=== PATIENT | male | born 1950 | race Caucasian/White ===

== ENCOUNTER 2023-05-30 12:06 | Inpatient (IN) ==
[2023-05-30] MEDS ORDERED: ALBUT/IPRATROP 3MG/0.5MG NEB 3 ML VIAL NEB STA (12:17)
[2023-05-30] MEDS ORDERED: methylPREDNISolone 125 MG/2 ML VIAL IV STA (12:17)
--- NOTE | 2023-05-30 12:30 | XRay Report ---
XR chest 1V portable CLINICAL HISTORY: Dyspnea. + covid COMPARISON STUDY: No previous studies for comparison. FINDINGS: No pneumothorax or pleural effusion is present. There is mild cardiomegaly. Lower lung inte rstitial thickening is present. Left basilar airspace opacity is noted. Lung volumes are normal. IMPRESSION: 1. Lower lung interstitial thickening and left basilar opacity. This could reflect an infectious proc ess or mild pulmonary edema. Radiographic follow-up to ensure resolution is recommended. 2. Mild cardiomegaly. ACT 112: Negative or not required by law. Electronically signed by: Thomas Key M.D. 05/30/2023 12:29 PM
[2023-05-30] MEDS ORDERED: PIPERACILLIN/TAZOBACTAM 4.5 GM/100 ML BAG IV ONE (12:37)
[2023-05-30 13:14] LABS: Basophils # (auto) 0.02 K/uL (0.00-0.20); Basophils % (auto) 0.2 %; Hematocrit (blood only) 43.6 % (42.0-52.0); Hemoglobin 14.6 g/dl (14.0-18.0); Immature Granulocytes # (auto) 0.04 K/uL (0.01-0.20); Immature Granulocytes % (auto) 0.4 %; Lymphocytes # (auto) 0.82 K/uL (1.20-3.40); Lymphocytes % (auto) 7.4 %; Mean Corpuscular Hgb Conc 33.5 g/dL (32.0-36.0); Mean Corpuscular Volume 101.4 fL (80.0-100.0); Mean Platelet Volume 11.1 fL (9.4-12.4); Monocytes # (auto) 1.23 K/uL (0.11-0.59); Monocytes % (auto) 11.1 %; Neutrophils % (auto) 80.9 %; Platelet Count 181 K/uL (130-400); RDW Coefficient of Variation 13.7 % (11.5-14.5); RDW Standard Deviation 51.1 fL (36.4-46.3); White Blood Count 11.11 K/ul (4.8-10.8)
[2023-05-30 13:28] LABS: Albumin Globulin Ratio 1.1 (0.9-2); Albumin Level 3.8 gm/dl (3.4-5.0); BUN Creatinine Ratio 16.7 (10-20); Bilirubin,Total 1.1 mg/dl (0.2-1.0); Calcium 9.4 mg/dl (8.6-10.3); Creatinine Clr Calc Pharmacy 48.8 ml/min; Est GFR (African American) 47.4 ml/min; Est GFR (Non-African American) 40.9 ml/min; Globulin 3.6 gm/dl (2.5-4.0); Magnesium 1.6 mg/dl (1.7-2.4); Potassium 4.7 mmol/L (3.5-5.1); Total Protein 7.4 gm/dl (6.0-8.3)
[2023-05-30 13:38] LABS: Adenovirus PCR Not Detected (NotDetected); Bordetella parapertussis PCR Not Detected (NotDetected); Bordetella pertussis PCR Not Detected (NotDetected); Chlamydia pneumoniae PCR Not Detected (NotDetected); Coronavirus 229E PCR Not Detected (NotDetected); Coronavirus HKU1 PCR Not Detected (NotDetected); Coronavirus NL63 PCR Not Detected (NotDetected); Coronavirus OC43PCR Not Detected (NotDetected); Human Metapneumovirus PCR Not Detected (NotDetected); Influenza A PCR Not Detected (NotDetected); Influenza B PCR Not Detected (NotDetected); Mycoplasma pneumoniae PCR Not Detected (NotDetected); Parainfluenza Virus 1 PCR Not Detected (NotDetected); Parainfluenza Virus 2 PCR Not Detected (NotDetected); Parainfluenza Virus 3 PCR Not Detected (NotDetected); Parainfluenza Virus 4 PCR Not Detected (NotDetected); Respiratory Syncytial VirusPCR Not Detected (NotDetected); Rhinovirus/Enterovirus PCR Not Detected (NotDetected)
[2023-05-30 13:47] LABS: Troponin I High Sensitivity 20.3 pg/ml (0-20)
[2023-05-30 14:11] LABS: Coronavirus CoV-2 (COVID19)PCR DETECTED (NotDetected)
[2023-05-30] MEDS ORDERED: VANCOMYCIN CONSULT ACTIVE PRN (14:16)
[2023-05-30] MEDS ORDERED: VANCOMYCIN HCL 2,000 MG in SODIUM CHLORIDE 0.9% 500 ML IV ONE (14:16)
--- NOTE | 2023-05-30 14:25 | Emergency Department Note ---
Impression & Plan COVID-19, Left lower lobe pneumonia, Hypoxia, History of ischemic right MCA stroke ED Provider Note INFORMANT: Patient and . EMS. ED PROVIDER(S): Mariusz Morales MD CHIEF COMPLAINT: Shortness of breath and COVID PLAN: Disposition: Admitted Outpatient prescription management: none Referral: None MEDICAL DECISION MAKING: Patient presented because of shortness of breath. He was recently diagnosed with COVID. He was requiring nonrebreather oxygen to maintain adequate O2 saturations. Patient had a chest x-ray performed and this was concerning for pneumonia. Given his breathing issues and this diagnosis of COVID along with his recent stroke CT imaging was ordered. The patient had an elevated procalcitonin, white blood cell count and glucose. His troponin was borderline as well. ECG did not show any acute ischemia. Patient was empirically started on antibiotics after he received a DuoNeb and Solu-Medrol. The patient was treated with Zosyn and vancomycin due to his healthcare acquired infection and possible risk for aspiration. CT imaging did show infiltrative change bilaterally as well as atelectatic changes in the lower lobes. Patient had some slight desaturation per nursing and BiPAP was ordered. Patient was evaluated by respiratory. He had too much of an air leak with the BiPAP mask and after sitting up he was able to maintain better saturations on a nonrebreather without significant tachypnea or increased work of breathing. We did discuss the possibility of high flow. Patient will need further management in the hospital. I did discuss this with his . Consultation was made with Dr. Herman Vega of the [facility] service. Patient was evaluated in the ER for further management. Care/management discussed with: assistant department manager Level of care consideration(s): After review of the information above and other included data, I feel the patient requires hospitalization Triage Nursing notes: reviewed and agree them. Vital Signs: reviewed and remarkable for hypoxia Additional History obtained from: EMS and Chronic Medical/Social Conditions affecting care: Stroke, diabetes Prior /Outside records reviewed: [facility] and records [facility]. Patient admitted for stroke. Differential Diagnosis: COVID-19,Reactive airway disease, pneumonia, pneumothorax, COPD, CHF, infections, cardiac ischemia, pulmonary embolism, musculoskeletal, gastrointestinal, as well as other pathologies. Diagnostics, independently interpreted by me: ECG: Twelve-lead ECG reveals a sinus tachycardia 104 bpm. Right bundle branch block. Inferior Q waves. No ST elevation or depression Cardiac Monitoring: Cardiac monitoring ordered by me: The patient was placed on continuous cardiac monitoring and observed. It revealed a sinus tachycardia at 104 bpm. Medical decision rules: none Imaging studies: CT scan as above. HPI: The patient is a 73-year-old man who arrives for evaluation of shortness of breath. This started a few days ago but is worsening. [facility] is at [facility] secondary to stroke rehabilitation. Patient was diagnosed with COVID-19. He was started on oxygen and the O2 requirement increased yesterday into today. Patient's is present helps with the history. She did note that he was in rehab for the stroke. He was having some difficulty swallowing but then that had improved. Patient is eating and drinking on his own. No reported episodes of aspiration or vomiting in the recent days. Patient was placed on a nonrebreather by EMS and brought to emergency department for further evaluation. Patient notes of generalized weakness, fever, chills shortness of breath. Pt denies LOC, headache,visual changes, neck pain, chest pain, nausea, vomiting, abdominal pain, back pain, melena, hematochezia, urinary symptoms, numbness, no ew weakness, or other complaints. PAST MEDICAL HISTORY: See Below, stroke PAST SURGICAL HISTORY: See Below, SOCIAL HISTORY: See Below, HOME MEDICATIONS: See Below ALLERGIES: See Below VITALS: See Below PHYSICAL EXAMINATION: GENERAL: Awake, alert, dyspneic-appearing, in no distress HENT: Normocephalic, atraumatic. Oropharynx unremarkable. EYES: Normal conjunctiva. Sclera non-icteric. NECK: Inspection normal. Non-tender. Supple. No nuchal rigidity. FROM. No masses. RESPIRATORY: Scattered rhonchi and rales in the left side. Increase respiratory effort. CARDIAC: Normal rate. Normal rhythm. No murmurs. No rubs. Extremities warm and well perfused. Pulses equal. No JVD. GI: Soft, non-distended. No tenderness to palpation. No rebound or guarding. No masses. RECTAL: Deferred. MUSCULOSKELETAL: Atraumatic. Chest examination reveals no tenderness. The back is symmetrical on inspection without obvious abnormality. There is no CVA tenderness to palpation. No joint edema. LOWER EXTREMITIES: Calves are equal size bilaterally and non-tender. No edema. No discoloration. NEURO: Slow to answer questions and gives limited details however otherwise normal sensorium. No sensory deficits noted. Patient does have some mild weakness on the right side. SKIN: No rash or jaundice noted. PROCEDURES: none CRITICAL CARE: I have personally spent 30 minutes of critical care time in the direct management of this patient. This includes bedside care, interpretation of diagnostic studies, and testing, discussion with consultants, patient, and family members, and other required patient management activities. These minutes are in excess of all separately billable procedures. OBSERVATION NOTE: none Past Med/Surg History Social History Smoking Status: Former smoker Feels Safe at Home: Yes Home Meds Home Medications Medication Instructions Recorded Confirmed Aspir-81 81 mg PO DAILY 05/30/23 05/30/23 Glucose Gel 15 g PO DAILY PRN Other 05/30/23 05/30/23 Milk of Magnesia 30 ml PO DAILY PRN Constipation 05/30/23 05/30/23 acetaminophen 325 mg tablet 650 mg PO DAILY PRN Pain 05/30/23 05/30/23 allopurinol 300 mg tablet 300 mg PO DAILY 05/30/23 05/30/23 amlodipine 5 mg tablet 5 mg PO DAILY 05/30/23 05/30/23 ascorbic acid (vitamin C) 500 mg 250 mg PO DAILY 05/30/23 05/30/23 tablet atenolol 50 mg tablet 50 mg PO DAILY 05/30/23 05/30/23 atorvastatin 80 mg tablet 40 mg PO DAILY 05/30/23 05/30/23 bisacodyl 10 mg rectal suppository 10 mg OK DAILY PRN Constipation 05/30/23 05/30/23 dextrose 50 % in water (D50W) See Rx Instructions .Route .COMPLEX 05/30/23 05/30/23 dextrose 50 % in water (D50W) See Rx Instructions .Route .COMPLEX 05/30/23 05/30/23 docusate sodium 100 mg capsule 100 mg PO BID 05/30/23 05/30/23 empagliflozin 25 mg tablet 25 mg PO DAILY 05/30/23 05/30/23 (Jardiance) ferrous sulfate 325 mg (65 mg 325 mg PO DAILY 05/30/23 05/30/23 iron) tablet glucagon 1 mg solution for See Rx Instructions .Route .COMPLEX 05/30/23 05/30/23 injection heparin (porcine) 5,000 unit/mL 5,000 unit subcut DIRECTED 05/30/23 05/30/23 injection solution insulin regular human 100 unit/mL 2 unit subcut USEASDIRECTD 05/30/23 05/30/23 injection solution (Humulin R Regular U-100 Insulin) loratadine 10 mg tablet 10 mg PO DAILY 05/30/23 05/30/23 magnesium oxide 400 mg PO DAILY 05/30/23 05/30/23 metformin 500 mg tablet,extended 1,000 mg PO DAILY 05/30/23 05/30/23 release 24 hr mineral oil 118 ml OK DAILY PRN Constipation 05/30/23 05/30/23 ondansetron 4 mg disintegrating 4 mg PO Q4H PRN N/V 05/30/23 05/30/23 tablet pantoprazole 40 mg tablet,delayed 40 mg PO DAILY 05/30/23 05/30/23 release polyethylene glycol 3350 17 17 g PO DAILY PRN Constipation 05/30/23 05/30/23 gram/dose oral powder semaglutide 1 mg/dose (2 mg/1.5 See Rx Instructions .Route .COMPLEX 05/30/23 05/30/23 mL) subcutaneous pen injector (Ozempic) sennosides 8.6 mg-docusate sodium 1 tab-cap PO HS PRN Constipation 05/30/23 05/30/23 50 mg tablet (Senokot-S) sodium chloride 0.9 % See Rx Instructions .Route 05/30/23 05/30/23 .COMPLEX PRN Other venlafaxine 75 mg capsule,extended 75 mg PO DAILY 05/30/23 05/30/23 release 24 hr Results & Data (ED) Vital Signs Vital Signs - 24 hr 05/30/23 12:17 05/30/23 12:19 05/30/23 12:18 Temperature 37.1 C 37.1 C Temperature Source Oral Oral Pulse Rate 107 H 107 H Pulse Rate [Apical] 107 H Respiratory Rate 22 22 Respiratory Effort / Characteristics Short of Breath Short of Breath Blood Pressure 147/84 H Blood Pressure [Right Arm] 147/84 H Blood Pressure Mean 105 Blood Pressure Mean [Right Arm] 105 Blood Pressure Position Lying Blood Pressure Position [Right Arm] Lying Pulse Oximetry 90 90 Oxygen Delivery Method Non-rebreather Non-rebreather Oxygen Flow Rate 15 15 Sepsis Recent Fever Within 48 Hours Yes Sepsis New/Unexplained Change in Mental Status N/A Sepsis Action Taken by Nursing Physician Notified Oxygen Flow Rate - Titration Pulse Oximetry Post Tiitration 05/30/23 12:27 05/30/23 12:59 05/30/23 15:08 Temperature Temperature Source Pulse Rate 104 H Pulse Rate [Apical] 96 H Respiratory Rate 24 18 Respiratory Effort / Characteristics Blood Pressure Blood Pressure [Right Arm] 116/69 Blood Pressure Mean Blood Pressure Mean [Right Arm] 84 Blood Pressure Position Blood Pressure Position [Right Arm] Pulse Oximetry 86 L 92 96 Oxygen Delivery Method Non-rebreather Non-rebreather Oxygen Flow Rate 12 15 Sepsis Recent Fever Within 48 Hours Sepsis New/Unexplained Change in Mental Status Sepsis Action Taken by Nursing Oxygen Flow Rate - Titration 15 Pulse Oximetry Post Tiitration 90 05/30/23 16:30 05/30/23 17:17 Temperature Temperature Source Pulse Rate 87 Pulse Rate [Apical] 84 Respiratory Rate 20 Respiratory Effort / Characteristics Blood Pressure Blood Pressure [Right Arm] 112/67 Blood Pressure Mean Blood Pressure Mean [Right Arm] 82 Blood Pressure Position Blood Pressure Position [Right Arm] Pulse Oximetry 90 Oxygen Delivery Method Non-rebreather Oxygen Flow Rate 15 Sepsis Recent Fever Within 48 Hours Sepsis New/Unexplained Change in Mental Status Sepsis Action Taken by Nursing Oxygen Flow Rate - Titration Pulse Oximetry Post Tiitration Laboratory Data 05/30/23 12:55 05/30/23 12:55 Lab Results 05/30/23 05/30/23 05/30/23 Range/Units 12:38 12:55 12:55 WBC 11.11 H (4.8-10.8) K/ul RBC 4.30 L (4.70-6.10) M/uL Hgb 14.6 (14.0-18.0) g/dl Hct 43.6 (42.0-52.0) % MCV 101.4 H (80.0-100.0) fL MCH 34.0 (25.0-34.0) pg MCHC 33.5 (32.0-36.0) g/dL RDW Std Deviation 51.1 H (36.4-46.3) fL RDW Coeff of Lilian 13.7 (11.5-14.5) % Plt Count 181 (130-400) K/uL MPV 11.1 (9.4-12.4) fL Immature Gran % (Auto) 0.4 % Neut % (Auto) 80.9 % Lymph % (Auto) 7.4 % Henderson % (Auto) 11.1 % Eos % (Auto) 0.0 % Baso % (Auto) 0.2 % Neut # (Auto) 9.00 H (1.40-6.50) K/uL Lymph # (Auto) 0.82 L (1.20-3.40) K/uL Henderson # (Auto) 1.23 H (0.11-0.59) K/uL Eos # (Auto) 0.00 (0.00-0.50) K/uL Baso # (Auto) 0.02 (0.00-0.20) K/uL Immature Gran # (Auto) 0.04 (0.01-0.20) K/uL Sodium 136 (136-145) mmol/L Potassium 4.7 (3.5-5.1) mmol/L Chloride 102 (98-107) mmol/L Carbon Dioxide 21 (21-32) mmol/L Anion Gap 13 H (3-11) BUN 27 H (6-23) mg/dl Creatinine 1.62 H (0.6-1.4) mg/dl Est Cr Clr Drug Dosing 48.8 ml/min Est GFR ( Amer) 47.4 ml/min Est GFR (Non-Af Amer) 40.9 ml/min BUN/Creatinine Ratio 16.7 (10-20) Glucose 258 H (70-99(Fasting)) mg/dl Calcium 9.4 (8.6-10.3) mg/dl Magnesium 1.6 L (1.7-2.4) mg/dl Total Bilirubin 1.1 H (0.2-1.0) mg/dl AST 28 (13-39) U/L ALT 22 (7-52) U/L Alkaline Phosphatase 65 (34-104) U/L Troponin I High Sens 20.3 H (0-20) pg/ml B-Natriuretic Peptide (0-100) pg/ml Total Protein 7.4 (6.0-8.3) gm/dl Albumin 3.8 (3.4-5.0) gm/dl Globulin 3.6 (2.5-4.0) gm/dl Albumin/Globulin Ratio 1.1 (0.9-2) Procalcitonin (0-0.5) ng/ml Urine Color Urine Appearance (Clear) Urine pH (4.5-7.5) Ur Specific [place] (1.000-1.030) Urine Protein (Negative) Urine Glucose (UA) (Negative) Urine Ketones (Negative) Urine Blood (Negative) Urine Nitrite (Negative) Urine Bilirubin (Negative) Urine Urobilinogen (Negative) Ur Leukocyte Esterase (Negative) Urine WBC (Auto) (0-5) /hpf Urine RBC (Auto) (0-4) /hpf U Hyaline Cast (Auto) (0-5) /lpf U Epithel Cells (Auto) (0-5) /lpf Urine Bacteria (Auto) (Negative) Urine Yeast (None Prsent) Adenovirus (PCR) Not Detected (NotDetected) B. pertussis DNA (PCR) Not Detected (NotDetected) B.parapertussis DNA PCR Not Detected (NotDetected) C. pneumoniae DNA (PCR) Not Detected (NotDetected) Coronavirus OC43 (PCR) Not Detected (NotDetected) Coronavirus HKU1 (PCR) Not Detected (NotDetected) Coronavirus 229E (PCR) Not Detected (NotDetected) SARS-CoV-2 (PCR) DETECTED A* (NotDetected) Coronavirus NL63 (PCR) Not Detected (NotDetected) Human Metapneumovir PCR Not Detected (NotDetected) Influenza Type A (PCR) Not Detected (NotDetected) Influenza Type B (PCR) Not Detected (NotDetected) M. pneumoniae (PCR) Not Detected (NotDetected) Parainfluenza 1 (PCR) Not Detected (NotDetected) Parainfluenza 2 (PCR) Not Detected (NotDetected) Parainfluenza 3 (PCR) Not Detected (NotDetected) Parainfluenza 4 (PCR) Not Detected (NotDetected) RSV (PCR) Not Detected (NotDetected) Entero/Rhino (PCR) Not Detected (NotDetected) 05/30/23 05/30/23 05/30/23 Range/Units 12:55 12:55 14:51 WBC (4.8-10.8) K/ul RBC (4.70-6.10) M/uL Hgb (14.0-18.0) g/dl Hct (42.0-52.0) % MCV (80.0-100.0) fL MCH (25.0-34.0) pg MCHC (32.0-36.0) g/dL RDW Std Deviation (36.4-46.3) fL RDW Coeff of Lilian (11.5-14.5) % Plt Count (130-400) K/uL MPV (9.4-12.4) fL Immature Gran % (Auto) % Neut % (Auto) % Lymph % (Auto) % Henderson % (Auto) % Eos % (Auto) % Baso % (Auto) % Neut # (Auto) (1.40-6.50) K/uL Lymph # (Auto) (1.20-3.40) K/uL [place] # (Auto) (0.11-0.59) K/uL Eos # (Auto) (0.00-0.50) K/uL Baso # (Auto) (0.00-0.20) K/uL Immature Gran # (Auto) (0.01-0.20) K/uL Sodium (136-145) mmol/L Potassium (3.5-5.1) mmol/L Chloride (98-107) mmol/L Carbon Dioxide (21-32) mmol/L Anion Gap (3-11) BUN (6-23) mg/dl Creatinine (0.6-1.4) mg/dl Est Cr Clr Drug Dosing ml/min Est GFR ( Amer) ml/min Est GFR (Non-Af Amer) ml/min BUN/Creatinine Ratio (10-20) Glucose (70-99(Fasting)) mg/dl Calcium (8.6-10.3) mg/dl Magnesium (1.7-2.4) mg/dl Total Bilirubin (0.2-1.0) mg/dl AST (13-39) U/L ALT (7-52) U/L Alkaline Phosphatase (34-104) U/L Troponin I High Sens 23.1 H (0-20) pg/ml B-Natriuretic Peptide 70 (0-100) pg/ml Total Protein (6.0-8.3) gm/dl Albumin (3.4-5.0) gm/dl Globulin (2.5-4.0) gm/dl Albumin/Globulin Ratio (0.9-2) Procalcitonin 2.36 H (0-0.5) ng/ml Urine Color Urine Appearance (Clear) Urine pH (4.5-7.5) Ur Specific [place] (1.000-1.030) Urine Protein (Negative) Urine Glucose (UA) (Negative) Urine Ketones (Negative) Urine Blood (Negative) Urine Nitrite (Negative) Urine Bilirubin (Negative) Urine Urobilinogen (Negative) Ur Leukocyte Esterase (Negative) Urine WBC (Auto) (0-5) /hpf Urine RBC (Auto) (0-4) /hpf U Hyaline Cast (Auto) (0-5) /lpf U Epithel Cells (Auto) (0-5) /lpf Urine Bacteria (Auto) (Negative) Urine Yeast (None Prsent) Adenovirus (PCR) (NotDetected) B. pertussis DNA (PCR) (NotDetected) B.parapertussis DNA PCR (NotDetected) C. pneumoniae DNA (PCR) (NotDetected) Coronavirus OC43 (PCR) (NotDetected) Coronavirus HKU1 (PCR) (NotDetected) Coronavirus 229E (PCR) (NotDetected) SARS-CoV-2 (PCR) (NotDetected) Coronavirus NL63 (PCR) (NotDetected) Human Metapneumovir PCR (NotDetected) Influenza Type A (PCR) (NotDetected) Influenza Type B (PCR) (NotDetected) M. pneumoniae (PCR) (NotDetected) Parainfluenza 1 (PCR) (NotDetected) Parainfluenza 2 (PCR) (NotDetected) Parainfluenza 3 (PCR) (NotDetected) Parainfluenza 4 (PCR) (NotDetected) RSV (PCR) (NotDetected) Entero/Rhino (PCR) (NotDetected) 05/30/23 Range/Units 17:01 WBC (4.8-10.8) K/ul RBC (4.70-6.10) M/uL Hgb (14.0-18.0) g/dl Hct (42.0-52.0) % MCV (80.0-100.0) fL MCH (25.0-34.0) pg MCHC (32.0-36.0) g/dL RDW Std Deviation (36.4-46.3) fL RDW Coeff of Lilian (11.5-14.5) % Plt Count (130-400) K/uL MPV (9.4-12.4) fL Immature Gran % (Auto) % Neut % (Auto) % Lymph % (Auto) % [place] % (Auto) % Eos % (Auto) % Baso % (Auto) % Neut # (Auto) (1.40-6.50) K/uL Lymph # (Auto) (1.20-3.40) K/uL [place] # (Auto) (0.11-0.59) K/uL Eos # (Auto) (0.00-0.50) K/uL Baso # (Auto) (0.00-0.20) K/uL Immature Gran # (Auto) (0.01-0.20) K/uL Sodium (136-145) mmol/L Potassium (3.5-5.1) mmol/L Chloride (98-107) mmol/L Carbon Dioxide (21-32) mmol/L Anion Gap (3-11) BUN (6-23) mg/dl Creatinine (0.6-1.4) mg/dl Est Cr Clr Drug Dosing ml/min Est GFR ( Amer) ml/min Est GFR (Non-Af Amer) ml/min BUN/Creatinine Ratio (10-20) Glucose (70-99(Fasting)) mg/dl Calcium (8.6-10.3) mg/dl Magnesium (1.7-2.4) mg/dl Total Bilirubin (0.2-1.0) mg/dl AST (13-39) U/L ALT (7-52) U/L Alkaline Phosphatase (34-104) U/L Troponin I High Sens (0-20) pg/ml B-Natriuretic Peptide (0-100) pg/ml Total Protein (6.0-8.3) gm/dl Albumin (3.4-5.0) gm/dl Globulin (2.5-4.0) gm/dl Albumin/Globulin Ratio (0.9-2) Procalcitonin (0-0.5) ng/ml Urine Color Yellow Urine Appearance Clear (Clear) Urine pH 5.0 (4.5-7.5) Ur Specific [place] > 1.045 H (1.000-1.030) Urine Protein 1+ H (Negative) Urine Glucose (UA) 3+ H (Negative) Urine Ketones 1+ H (Negative) Urine Blood Negative (Negative) Urine Nitrite Negative (Negative) Urine Bilirubin Negative (Negative) Urine Urobilinogen Negative (Negative) Ur Leukocyte Esterase Negative (Negative) Urine WBC (Auto) 1-5 (0-5) /hpf Urine RBC (Auto) 5-10 H (0-4) /hpf U Hyaline Cast (Auto) 0 (0-5) /lpf U Epithel Cells (Auto) 0-5 (0-5) /lpf Urine Bacteria (Auto) Negative (Negative) Urine Yeast Budding A (None Prsent) Adenovirus (PCR) (NotDetected) B. pertussis DNA (PCR) (NotDetected) B.parapertussis DNA PCR (NotDetected) C. pneumoniae DNA (PCR) (NotDetected) Coronavirus OC43 (PCR) (NotDetected) Coronavirus HKU1 (PCR) (NotDetected) Coronavirus 229E (PCR) (NotDetected) SARS-CoV-2 (PCR) (NotDetected) Coronavirus NL63 (PCR) (NotDetected) Human Metapneumovir PCR (NotDetected) Influenza Type A (PCR) (NotDetected) Influenza Type B (PCR) (NotDetected) M. pneumoniae (PCR) (NotDetected) Parainfluenza 1 (PCR) (NotDetected) Parainfluenza 2 (PCR) (NotDetected) Parainfluenza 3 (PCR) (NotDetected) Parainfluenza 4 (PCR) (NotDetected) RSV (PCR) (NotDetected) Entero/Rhino (PCR) (NotDetected) Administered Medications Discontinued Medications Albuterol (Albut/Ipratrop 3mg/0.5mg Neb 3 Ml Vial) 3 ml NEB NOW STA; Protocol Stop: 05/30/23 12:18 Last Admin: 05/30/23 12:48 Dose: 3 ml Documented By: JUDIT Piperacillin Sod/Tazobactam Sod (Zosyn) 4.5 gm in 100 mls @ 200 mls/hr IV NOW ONE Stop: 05/30/23 13:06 Last Infusion: 05/30/23 14:14 Dose: 0 mls/hr Documented By: Admin: 05/30/23 13:22 Dose: 200 mls/hr Documented By: JUDIT Vancomycin HCl 2,000 mg/ (Sodium Chloride) 540 mls @ 200 mls/hr IV NOW ONE Stop: 05/30/23 16:57 Last Admin: 05/30/23 15:38 Dose: 200 mls/hr Documented By: RAMA Ioversol (Optiray 320 125ml) 119 ml IV ONCE ONE Stop: 05/30/23 15:14 Last Admin: 05/30/23 15:13 Dose: 119 ml Documented By: BUCK Methylprednisolone (Methylprednisolone 125 Mg/2 Ml Vial) 125 mg IV NOW STA Stop: 05/30/23 12:18 Last Admin: 05/30/23 12:48 Dose: 125 mg Documented By: JUDIT Imaging Data Radiologist's Impression: Chest CTA 05/30/23 12:10 CT ANGIOGRAPHY OF THE CHEST, PULMONARY EMBOLUS PROTOCOL CLINICAL HISTORY: hypoxia, SOB, +covid COMPARISON STUDY: Chest radiograph performed earlier today. TECHNIQUE: Following IV administration of 119 mL of Optiray, helical axial images of the chest were obtained utilizing the pulmonary embolus protocol. Maximal intensity projections and sagittal and coronal reformats were viewed on an independent 3D workstation. IV contrast was administered without complication. Automated exposure control was utilized for the study. A dose lowering technique was utilized adhering to the principles of ALARA. CT DOSE: 947.68 mGy.cm FINDINGS: No pulmonary emboli are identified. There is no thoracic aortic dissection. There is mild cardiomegaly and moderate coronary artery calcification. There is no pericardial effusion. There is a large hiatal hernia with partially intrathoracic stomach. Multiple mildly enlarged mediastinal and right hilar nodes are noted. Index right hilar node measures 1.5 x 1.1 cm. AP window lymph node measures 1.6 x 1.1 cm. The esophagus is fluid-filled and mildly distended. There is no pneumothorax. There is trace bilateral pleural fluid. Lungs are suboptimally assessed due to respiratory motion. There is extensive bilateral lower lobe airspace opacity with volume loss, greater on the right. There is near complete right lower lobe collapse. In addition, there are airspace opacities within the left lower lobe. This includes a 3.1 cm opacity within the superior segment on image 123. Moderate secretions within the bilateral lower lobe bronchi are present. No central obstructing mass is identified. IMPRESSION: 1. No pulmonary emboli identified. 2. Extensive bilateral lower lobe airspace opacities with volume loss, greater on the right. Near complete right lower lobe collapse and segmental left lower lobe atelectasis. Secretions within the bilateral lower lobe bronchi. The findings raise the possibility of aspiration pneumonitis. Pneumonia could appear similar. Follow-up chest CT in one to 2 months to ensure resolution is recommended. 3. Multiple mildly enlarged mediastinal and right hilar lymph nodes. These may be reactive but should be assessed on follow-up CT. 4. Large hiatal hernia with partially intrathoracic stomach. Mildly dilated, f luid-filled esophagus. This could increase risk for aspiration. ACT 112: Negative or not required by law. Electronically signed by: Thomas Key M.D. 05/30/2023 3:42 PM Chest X-Ray 05/30/23 12:10 XR chest 1V portable CLINICAL HISTORY: Dyspnea. + covid COMPARISON STUDY: No previous studies for comparison. FINDINGS: No pneumothorax or pleural effusion is present. There is mild cardiomegaly. Lower lung interstitial thickening is present. Left basilar airspace opacity is noted. Lung volumes are normal. IMPRESSION: 1. Lower lung interstitial thickening and left basilar opacity. This could reflect an infectious process or mild pulmonary edema. Radiographic follow-up to ensure resolution is recommended. 2. Mild cardiomegaly. ACT 112: Negative or not required by law. Electronically signed by: Thomas Key M.D. 05/30/2023 12:29 PM Discharge Plan Visit Data Chief Complaint: Shortness of Breath/Dyspnea Stated Complaint: HYPOXIA, FEVER, COVID + ED Provider: Mariusz Morales Discharge Problem: COVID-19, Left lower lobe pneumonia, Hypoxia, History of ischemic right MCA stroke Patient Disposition: Admitted As Inpatient Discharge Instructions Interventions: ED Discharge Assessment Last Done: 05/30/23 18:38
[2023-05-30] MEDS ORDERED: OPTIRAY 320 125ml IV ONE (15:13)
--- NOTE | 2023-05-30 15:44 | CT Scan Report ---
CT ANGIOGRAPHY OF THE CHEST, PULMONARY EMBOLUS PROTOCOL CLINICAL HISTORY: hypoxia, SOB, +covid COMPARISON STUDY: Chest radiograph performed earlier today. TECHNIQUE: Following IV administration of 119 mL of Optiray, helical axial images of the chest were o btained utilizing the pulmonary embolus protocol. Maximal intensity projections and sagittal and cor onal reformats were viewed on an independent 3D workstation. IV contrast was administered without co mplication. Automated exposure control was utilized for the study. A dose lowering technique was ut ilized adhering to the principles of ALARA. CT DOSE: 947.68 mGy.cm FINDINGS: No pulmonary emboli are identified. There is no thoracic aortic dissection. There is mild cardiomegaly and moderate coronary artery calcification. There is no pericardial effusion. There is a large hiatal hernia with partially intrathoracic stomach. Multiple mildly enlarged mediastinal and r ight hilar nodes are noted. Index right hilar node measures 1.5 x 1.1 cm. AP window lymph node measur es 1.6 x 1.1 cm. The esophagus is fluid-filled and mildly distended. There is no pneumothorax. There is trace bilateral pleural fluid. Lungs are suboptimally assessed due to respiratory motion. There is extensive bilateral lower lobe airspace opacity with volume loss, greater on the right. There is victor m r complete right lower lobe collapse. In addition, there are airspace opacities within the left lower lobe. This includes a 3.1 cm opacity within the superior segment on image 123. Moderate secretions w ithin the bilateral lower lobe bronchi are present. No central obstructing mass is identified. IMPRESSION: 1. No pulmonary emboli identified. 2. Extensive bilateral lower lobe airspace opacities with volume loss, greater on the right. Near com plete right lower lobe collapse and segmental left lower lobe atelectasis. Secretions within the bila teral lower lobe bronchi. The findings raise the possibility of aspiration pneumonitis. Pneumonia cou ld appear similar. Follow-up chest CT in one to 2 months to ensure resolution is recommended. 3. Multiple mildly enlarged mediastinal and right hilar lymph nodes. These may be reactive but should be assessed on follow-up CT. 4. Large hiatal hernia with partially intrathoracic stomach. Mildly dilated, fluid-filled esophagus. This could increase risk for aspiration. ACT 112: Negative or not required by law. Electronically signed by: Thomas Key M.D. 05/30/2023 3:42 PM
[2023-05-30 17:19] LABS: Appearance Urine Clear (Clear); Bacteria Urine Automated Negative (Negative); Bilirubin Urine Negative (Negative); Blood Urine Negative (Negative); Cast Urine Automated 0 /lpf (0-5); Color Urine Yellow; Epithelial Cell Urine Auto 0-5 /lpf (0-5); Glucose Urine UA 3+ (Negative); Ketones Urine 1+ (Negative); Leukocyte Esterase Urine Negative (Negative); Nitrite Urine Negative (Negative); Protein Urine 1+ (Negative); Specific Gravity Urine > 1.045 (1.000-1.030); Urobilinogen Urine Negative (Negative)
[2023-05-30 17:44] LABS: Allen Test Pos (Pos); Base Excess ABG -4.7 mEq/L (-9-1.8); HCO3 ABG 20 mmol/L (19-24); Oxygen Saturation ABG 92.9 % (90-95); PCO2 ABG 33 mmHg (35-46); PO2 ABG 65 mmHg (80-95); pH ABG 7.38 (7.35-7.45)
--- NOTE | 2023-05-30 18:14 | History & Physical Report ---
Date of Service May 30, 2023 Assessment & Plan (1) Pneumonia of both lower lobes: Plan: Pt is a 73 yo male with PMH of recent right MCA stroke, HTN, diabetes, HLD, and COPD presenting from [facility] due to SOB. Bibasilar bacterial pneumonia in the setting of COVID - admit to PCU/tele - CT showed extensive bilateral lower lobe opacities; procal 2.36 - ABG showed hypoxia w/o hypercapnia; continue with high flow oxygen/nonrebreather for target O2 >90% (BIPAP unable to be used d/t inadequate seal secondary to pt's hodge) - blood cx pending - pt s/p zosyn and vanco in the ED: although pt's MRSA nares neg, considering pt's clinical presentation and oxygen requirement- will cover for MRSA; begin cefepime 2g q8hr - ?COPD hx; will tx like hypoxia/clinical picture d/t component of COPD exacerbation- begin methylpred 40 mg BID, azithromycin 500 mg x1 then 250 mg daily - suspect COVID virus itself is not contributing much to his PNA/symptoms; will hold on antivirals at this time - start duoneb q4hr, flutter valve, incentive spirometry for mucous clearance and bronchodilation Hx of ischemic stroke - continue daily aspirin - component of possible aspiration noted on CT; aspiration precautions ordered - will plan for discharge back to [facility] for rehab when stable Elevated Cr - unsure of pt's baseline Cr; 1.62 upon admission - suspect this may be around pt's baseline and is not a sign of sepsis/septic shock considering his hemodynamic stability - continue to monitor Diabetes - unsure of pt's control; A1c ordered for AM - hold home medications - will begin with goal 140-180 and CF 15 and base insulin requirement off of control achieved with this Hx of [place] - pt has hx of stent placement - troponin minimally elevated to low 20s; will trend to peak - continue daily aspirin, atenolol, atorvastatin Hypomagnesemia - 1.6 upon admission - will replete with 1g IV - continue home magnesium oxide 400 mg daily Diet: heart healthy DVT ppx: lovenox Code: DNR/DNI Dispo: admit to PCU/tele (2) COVID-19: (3) Hypoxia: (4) Diabetes: (5) HTN (hypertension): (6) Hyperlipidemia: (7) Hypomagnesemia: History of Present Illness Chief Complaint: SOB, COVID + Primary Care Provider: [facility] Pt is a 73 yo male with PMH of recent right MCA stroke, HTN, diabetes, HLD, and COPD presenting from [facility] due to SOB. Pt was seen in the ED with and daughter at bedside. Pt had a stroke ~2 weeks ago and was at [facility] for rehab. Around 2 days ago, he developed a sore throat and tested positive for COVID. Per the pt, he was not having breathing difficulty; however, he was sent to the ER because of others seeing him struggle to breath. Per pt's , pt has a hx of COPD but does not use daily inhalers. He does not use oxygen at home. Pt has no other complaints or concerns. He denies chest pain, abdominal pain, diarrhea/constipation, or leg pains. In the ER, his blood work showed that he had a mild leukocytosis with a left shift, Cr 1.62, troponin 23, procal 2.36, BNP 70. His ABG showed pH of 7.38, PCO2 33, and PO2 65. Pt satting 88-low 90s on 15L nonrebreather. CXR and CT showed extensive bibasilar opacities consistent with PNA. Home Medications Medication Instructions Recorded Confirmed Type Aspir-81 81 mg PO DAILY 05/30/23 05/30/23 History Glucose Gel 15 g PO DAILY PRN Other 05/30/23 05/30/23 History Milk of Magnesia 30 ml PO DAILY PRN Constipation 05/30/23 05/30/23 History acetaminophen 325 mg tablet 650 mg PO DAILY PRN Pain 05/30/23 05/30/23 History allopurinol 300 mg tablet 300 mg PO DAILY 05/30/23 05/30/23 History amlodipine 5 mg tablet 5 mg PO DAILY 05/30/23 05/30/23 History ascorbic acid (vitamin C) 500 mg 250 mg PO DAILY 05/30/23 05/30/23 History tablet atenolol 50 mg tablet 50 mg PO DAILY 05/30/23 05/30/23 History atorvastatin 80 mg tablet 40 mg PO DAILY 05/30/23 05/30/23 History bisacodyl 10 mg rectal suppository 10 mg MT DAILY PRN Constipation 05/30/23 05/30/23 History dextrose 50 % in water (D50W) See Rx Instructions .Route .COMPLEX 05/30/23 05/30/23 History dextrose 50 % in water (D50W) See Rx Instructions .Route .COMPLEX 05/30/23 05/30/23 History docusate sodium 100 mg capsule 100 mg PO BID 05/30/23 05/30/23 History empagliflozin 25 mg tablet 25 mg PO DAILY 05/30/23 05/30/23 History (Jardiance) ferrous sulfate 325 mg (65 mg 325 mg PO DAILY 05/30/23 05/30/23 History iron) tablet glucagon 1 mg solution for See Rx Instructions .Route .COMPLEX 05/30/23 05/30/23 History injection heparin (porcine) 5,000 unit/mL 5,000 unit subcut DIRECTED 05/30/23 05/30/23 History injection solution insulin regular human 100 unit/mL 2 unit subcut USEASDIRECTD 05/30/23 05/30/23 History injection solution (Humulin R Regular U-100 Insulin) loratadine 10 mg tablet 10 mg PO DAILY 05/30/23 05/30/23 History magnesium oxide 400 mg PO DAILY 05/30/23 05/30/23 History metformin 500 mg tablet,extended 1,000 mg PO DAILY 05/30/23 05/30/23 History release 24 hr mineral oil 118 ml MT DAILY PRN Constipation 05/30/23 05/30/23 History ondansetron 4 mg disintegrating 4 mg PO Q4H PRN N/V 05/30/23 05/30/23 History tablet pantoprazole 40 mg tablet,delayed 40 mg PO DAILY 05/30/23 05/30/23 History release polyethylene glycol 3350 17 17 g PO DAILY PRN Constipation 05/30/23 05/30/23 History gram/dose oral powder semaglutide 1 mg/dose (2 mg/1.5 See Rx Instructions .Route .COMPLEX 05/30/23 05/30/23 History mL) subcutaneous pen injector (Ozempic) sennosides 8.6 mg-docusate sodium 1 tab-cap PO HS PRN Constipation 05/30/23 05/30/23 History 50 mg tablet (Senokot-S) sodium chloride 0.9 % See Rx Instructions .Route 05/30/23 05/30/23 History .COMPLEX PRN Other venlafaxine 75 mg capsule,extended 75 mg PO DAILY 05/30/23 05/30/23 History release 24 hr Past Med/Surg History Social History Smoking Status: Former smoker Feels Safe at Home: Yes Review of Systems Review of Systems: As per HPI Physical Exam Physical Exam: Constitutional: ill appearing but nontoxic, no acute distress HEENT: normocephalic, no conjunctival injection CV: regular rhythm, regular rate, no murmur, no LE edema Respiratory: Air movement adequate throughout. Wheezing heard mostly in bilateral upper air [place]. Rhonchus sounds head throughout bilateral lower air [place]. Minimal use of accessory muscles. GI: soft, nondistended, nontender MSK: no gross deformities noted, 4/5 strength in bilateral UE and LE, perinatal coordinator strength adequate bilaterally. Resting tremor of bilateral feet and hands noted. Skin: warm, dry, no rashes Neuro: alert and oriented Results & Data Results & Data Vital Signs (Past 12 Hours) Vital Signs Temp Pulse Pulse Resp BP BP Pulse Ox 05/30/23 17:17 84 20 112/67 90 05/30/23 16:30 87 05/30/23 15:08 96 H 18 116/69 96 05/30/23 12:59 104 H 24 92 05/30/23 12:27 86 L 05/30/23 12:18 37.1 C 107 H 22 147/84 H 90 05/30/23 12:19 37.1 C 107 H 22 147/84 H 90 05/30/23 12:17 107 H O2 Del Method O2 Flow Rate 05/30/23 17:17 Non-rebreather 15 05/30/23 16:30 05/30/23 15:08 05/30/23 12:59 Non-rebreather 05/30/23 12:27 Non-rebreather 12 05/30/23 12:18 Non-rebreather 15 05/30/23 12:19 Non-rebreather 15 05/30/23 12:17 Code Status & VTE Plan VTE Prophylaxis Plan VTE Prophylaxis will be ordered: Yes Supervising Physician Co-Signing Physician Notes I personally examined the patient and verified all ya points of history and exam, discussed case, and agree with decision making with Dr Chatterjee. Denies any shortness of breath, although family notes that he looks much better than whenever he came in. Apparently was sent for hypoxia. He is a somewhat limited historiandoes not appear to be due to his illness as much is just that he appears to be a fairly quiet sancho. Vitals noted, in general he is laying in bed appears very fatigued but fortunately no respiratory distress. His breathing is unlabored, probably about an honest 20 minutes whenever I see him, no accessory muscle use. Bibasilar quiet slight rhonchi base right slight rhonchi mid left otherwise no rales rhonchi or wheezes good effort no accessory muscle use. Neuro shows cranial nerves II through XII are grossly intact gross motor and sensory intact. Pneumonia with hypoxic respiratory failure present on admissionfortunately not hypercapnic. MRSA nares negative. Quite ill. Undefined baseline COPD. Cefepime to cover the pneumonia, Zithromax and steroids for COPD. Nebs and flutter valve for pulmonary toilet. High flow nasal cannula for supportive care. While he tests positive for COVID, his imaging is so consistent with a dense bibasilar pneumonia that I do not believe it is a viral pneumonia. I do not think that COVID related therapies would benefit him (i.e. I doubt there would be any meaningful benefit to remdesivir, and while I do think the steroids will likely help given his undefined but probable COPD, I think that other immunosuppressants such as baricitinib or tocilizumab would cause more harm than benefit given that his pneumonia appears to be an acute bacterial pneumonia rather than a viral/immune mediated lung infiltrate. Lovenox for DVT prophylaxis. Otherwise as above. He notes he would like to be a DNR/DNI Resident Activity Tracking Resident Involvement: Resident Care Provided Care Provided: Adult Hospital Medicine
[2023-05-30] MEDS ORDERED: POLYETHYLENE (MIRALAX) 17 GM PACK PO PRN (19:23)
[2023-05-30] MEDS ORDERED: ONDANSETRON 4 MG OD TAB PO PRN (19:23)
[2023-05-30] MEDS ORDERED: bisacodyL 10 MG SUPP PR PRN (19:23)
[2023-05-30] MEDS ORDERED: DOCUSATE SODIUM/SENNA 50/8.6MG TAB PO PRN (19:23)
--- NOTE | 2023-05-30 19:41 | Billing Data ---
Date of Service May 30, 2023 Coding Level of Care Code 51966 INT INP/OBS CARE
[2023-05-30] MEDS ORDERED: ALBUT/IPRATROP 3MG/0.5MG NEB 3 ML VIAL ONE (19:44)
[2023-05-30] MEDS: ALBUT/IPRATROP 3MG/0.5MG NEB 3 ML VIAL NEB SCH ×2 (20:29→22:39)
[2023-05-30] MEDS ORDERED: MAGNESIUM SULFATE / D5W 1 GM/100 ML BAG IV ONE (21:00)
[2023-05-30] MEDS ORDERED: AZITHROMYCIN 250 MG TAB PO ONE (21:00)
[2023-05-30] MEDS: CEFEPIME 2,000 MG in SYRINGE 0 ML IV SCH (21:25)
[2023-05-30] MEDS: methylPREDNISolone 40 MG in SYRINGE 0 ML IV SCH (21:26)
[2023-05-30] MEDS: ENOXAPARIN INJ 40 MG/0.4 ML SYR SQ SCH (21:26)
[2023-05-30] MEDS: DOCUSATE SODIUM 100 MG CAP PO SCH (21:27)
[2023-05-30] MEDS: INSULIN ASPART PER UNIT CHARGE SC SCH (21:29)
--- NOTE | 2023-05-30 23:33 | Electrocardiogram Report ---
Test Reason : Blood Pressure : / mmHG Vent. Rate : 104 BPM Atrial Rate : 104 BPM P-R Int : 192 ms QRS Dur : 134 ms QT Int : 360 ms P-R-T Axes : 050 251 037 degrees QTc Int : 473 ms Sinus tachycardia with Premature ventricular complexes or Fusion complexes Right bundle branch block Inferior infarct , age undetermined Abnormal ECG No previous ECGs available Confirmed by Shahid Figueroa ([id number]) on 05/30/2023 11:33:17 PM Referred By: [facility] Confirmed By:Shahid Figueroa
[2023-05-31] MEDS: ALBUT/IPRATROP 3MG/0.5MG NEB 3 ML VIAL NEB SCH ×6 (02:31→22:23)
[2023-05-31] MEDS: Patient's ALLERGY Info needs ENTERED SCH ×11 (07:28→21:18)
--- NOTE | 2023-05-31 07:34 | Hospitalist Progress Note ---
Date of Service May 31, 2023 Assessment & Plan (1) Pneumonia of both lower lobes: Plan: Pt is a 73 yo male with PMH of recent right MCA stroke, HTN, diabetes, HLD, and COPD presenting from [facility] due to SOB. He test positive for COVID prior to presentation. Bibasilar bacterial pneumonia in the setting of COVID - CT showed extensive bilateral lower lobe opacities; procal 2.36; MRSA nares neg - ABG showed hypoxia w/o hypercapnia upon admission - blood cx negative - pt s/p zosyn and vanco in the ED: continue cefepime 2g q8hr - ?COPD hx; continue methylpred 40 mg BID, azithromycin 250 mg daily - suspect COVID virus itself is not contributing much to his PNA/symptoms; will hold on antivirals at this time - continue duoneb q4hr, flutter valve, incentive spirometry for mucous clearance and bronchodilation Hx of ischemic stroke - continue daily aspirin - component of possible aspiration noted on CT; aspiration precautions ordered - will plan for discharge back to [facility] for rehab when stable Elevated Cr - unsure of pt's baseline Cr; 1.62 upon admission - suspect this may be around pt's baseline and is not a sign of sepsis/septic shock considering his hemodynamic stability - slight worsening of Cr today with increase in BUN; possible component of dehydration; will give NS at 80 mL/hr x1L - continue to monitor Diabetes - Hgb A1c pending - hold home medications - based off of insulin requirement while hospitalized; goal BS 120-160, begin insulin glargine 10 units BID, CF 15, CR 10 Hx of HI - pt has hx of stent placement - troponin peaked in 20s and has since downtrended - continue daily aspirin, atenolol, atorvastatin Hypomagnesemia - 1.6 upon admission; repleted with 1g; repeat magnesium 2.2 - continue home magnesium oxide 400 mg daily Diet: heart healthy DVT ppx: lovenox Code: DNR/DNI Dispo: PCU, plan for discharge back to [facility] once oxygen requirement/symptoms allow (2) COVID-19: (3) Hypoxia: (4) Diabetes: (5) HTN (hypertension): (6) Hyperlipidemia: (7) Hypomagnesemia: Admission and Anticipated Discharge Date Admission Date: May 30, 2023 Supervising Physician Co-Signing Physician Notes I personally examined the patient and verified all ya points of history and exam, discussed case, and agree with decision making with Dr Chatterjee. breathing feels better. No complaints.. Vitals noted, in general he is laying in bed appears Much more alert, brighter, more interactive, better color. Breathing unlabored, lungs are diminished bibasilar, no rales rhonchi or wheezes no accessory muscle use good effort. Skin without rashes pallor or icterus. Pneumonia with hypoxic respiratory failure present on admissionfortunately not hypercapnic. MRSA nares negative. Initially was Quite ill. Undefined baseline COPD. Cefepime to cover the pneumonia (but given how quickly he is getting better, we may be able to de-escalate to more regular pneumonia coverage), Zithromax and steroids for COPD. Nebs and flutter valve for pulmonary toilet. oxygen/supportive carebut this is improving. While he tests positive for COVID, his imaging is so consistent with a dense bibasilar pneumonia that I do not believe it is a viral pneumonia. I do not think that COVID related therapies would benefit him (i.e. I doubt there would be any meaningful benefit to remdesivir, and while I do think the steroids will likely help given his undefined but probable COPD, I think that other immunosuppressants such as baricitinib or tocilizumab would cause more harm than benefit given that his pneumonia appears to be an acute bacterial pneumonia rather than a viral/immune mediated lung infiltrate. Lovenox for DVT prophylaxis. Otherwise as above. back to rehab fairly soon (probably once his oxygen requirements are more in the range of 6 L) Subjective Pt states he feels worse than yesterday d/t being tired. His breathing is about the same. No new chest pain or SOB. Review of Systems Review of Systems: As per HPI Physical Exam Physical Exam: Constitutional: ill appearing, no acute distress HEENT: normocephalic, no conjunctival injection CV: regular rhythm, regular rate, no murmur, no LE edema Respiratory: Minimal expiratory wheezing noted throughout. Decreased breath sounds in bilateral bases; adequate air movement throughout. No increased work of breathing MSK: no gross deformities noted Skin: warm, dry, no rashes Neuro: alert, oriented, bilateral UE and LE tremors noted Results & Data Results & Data Vital Signs (Past 12 Hours) Vital Signs Temp Pulse Pulse Resp BP Pulse Ox O2 Del Method 05/31/23 07:10 82 22 96 Oxymask 05/31/23 03:27 36.4 C L 84 28 H 149/79 H 91 Oxymask 05/31/23 02:31 84 22 88 L Nasal Cannula 05/30/23 19:40 High Flow Nasal Cannula 05/30/23 23:29 85 05/30/23 23:19 36.0 C L 81 28 H 121/72 93 High Flow Nasal Cannula 05/30/23 22:39 88 24 91 Nasal Cannula 05/30/23 20:01 81 20 90 Nasal Cannula O2 Flow Rate 05/31/23 07:10 15 05/31/23 03:27 15 05/31/23 02:31 15 05/30/23 19:40 15 05/30/23 23:29 05/30/23 23:19 15 05/30/23 22:39 15 05/30/23 20:01 15 Resident Activity Tracking Resident Involvement: Resident Care Provided Care Provided: Adult Hospital Medicine
[2023-05-31 08:03] LABS: Hemoglobin 14.9 g/dl (14.0-18.0); Mean Corpuscular Hemoglobin 34.2 pg (25.0-34.0); Mean Corpuscular Hgb Conc 33.1 g/dL (32.0-36.0); Mean Corpuscular Volume 103.2 fL (80.0-100.0); Mean Platelet Volume 11.1 fL (9.4-12.4); Platelet Count 182 K/uL (130-400); RDW Coefficient of Variation 13.7 % (11.5-14.5); RDW Standard Deviation 52.4 fL (36.4-46.3); Red Blood Count 4.36 M/uL (4.70-6.10); White Blood Count 13.83 K/ul (4.8-10.8)
[2023-05-31 08:18] LABS: BUN Creatinine Ratio 22.9 (10-20); Calcium 9.8 mg/dl (8.6-10.3); Creatinine Clr Calc Pharmacy 44.3 ml/min; Est GFR (African American) 44.7 ml/min; Est GFR (Non-African American) 38.6 ml/min; Potassium 4.8 mmol/L (3.5-5.1)
[2023-05-31] MEDS ORDERED: SODIUM CHLORIDE 0.9% 1,000 ML IV SCH (09:15)
[2023-05-31] MEDS: CEFEPIME 2,000 MG in SYRINGE 0 ML IV SCH ×2 (09:21→20:26)
[2023-05-31] MEDS: methylPREDNISolone 40 MG in SYRINGE 0 ML IV SCH ×2 (09:21→20:27)
[2023-05-31] MEDS: DOCUSATE SODIUM 100 MG CAP PO SCH ×2 (09:23→20:27)
[2023-05-31] MEDS: ASPIRIN 81 MG ECTAB PO SCH (09:23)
[2023-05-31] MEDS: VENLAFAXINE HCL XR 75 MG CAPXR PO SCH (09:23)
[2023-05-31] MEDS: ATENOLOL 50 MG TABLET PO SCH (09:24)
[2023-05-31] MEDS: AZITHROMYCIN 250 MG TAB PO SCH (09:24)
[2023-05-31] MEDS: LORATADINE 10 MG TAB PO SCH (09:25)
[2023-05-31] MEDS: PANTOprazole 40 MG TAB PO SCH (09:25)
[2023-05-31] MEDS: MAGNESIUM OXIDE 400 MG TAB PO SCH (09:25)
[2023-05-31] MEDS: amLODIPine BESYLATE 5 MG TAB PO SCH (09:26)
[2023-05-31] MEDS: ATORVASTATIN 40 MG TAB PO SCH (09:26)
[2023-05-31] MEDS: INSULIN ASPART PER UNIT CHARGE SC SCH ×4 (09:51→20:27)
[2023-05-31 10:27] LABS: Magnesium 2.2 mg/dl (1.7-2.4)
[2023-05-31] MEDS ORDERED: GLUCAGON FOR INJ 1 MG VIAL SQ PRN (15:15)
[2023-05-31] MEDS ORDERED: GLUCOSE 40% GEL 15 GM TUBE PO PRN (15:15)
[2023-05-31] MEDS ORDERED: DEXTROSE 50% 50 ML SYRINGE IV PRN (15:15)
[2023-05-31] MEDS ORDERED: GLUCOSE 10 TAB/TUBE PO PRN (15:15)
[2023-05-31] MEDS ORDERED: CARBOHYDRATES FOR HYPOGLYCEMIA PO PRN (15:15)
--- NOTE | 2023-05-31 18:01 | Billing Data ---
Date of Service May 31, 2023 Coding Level of Care Code 44606 SUB INP/OBS CARE
--- NOTE | 2023-05-31 18:01 | Billing Data ---
Date of Service May 31, 2023 Coding Level of Care Code 00294 SUB INP/OBS CARE
[2023-05-31] MEDS: ENOXAPARIN INJ 40 MG/0.4 ML SYR SQ SCH (20:26)
[2023-05-31] MEDS: LANTUS PER UNIT CHARGE SQ SCH (20:27)
[2023-06-01] MEDS: ALBUT/IPRATROP 3MG/0.5MG NEB 3 ML VIAL NEB SCH ×6 (02:08→22:36)
[2023-06-01 07:45] LABS: Hematocrit (blood only) 43.7 % (42.0-52.0); Hemoglobin 14.3 g/dl (14.0-18.0); Mean Corpuscular Hemoglobin 33.7 pg (25.0-34.0); Mean Corpuscular Hgb Conc 32.7 g/dL (32.0-36.0); Mean Corpuscular Volume 103.1 fL (80.0-100.0); Mean Platelet Volume 11.1 fL (9.4-12.4); Platelet Count 201 K/uL (130-400); RDW Coefficient of Variation 13.5 % (11.5-14.5); RDW Standard Deviation 51.3 fL (36.4-46.3); Red Blood Count 4.24 M/uL (4.70-6.10); White Blood Count 14.85 K/ul (4.8-10.8)
[2023-06-01 07:48] LABS: BUN Creatinine Ratio 29.5 (10-20); Calcium 9.1 mg/dl (8.6-10.3); Creatinine Clr Calc Pharmacy 45.4 ml/min; Est GFR (Non-African American) 39.7 ml/min; Potassium 4.8 mmol/L (3.5-5.1)
[2023-06-01] MEDS: INSULIN ASPART PER UNIT CHARGE SC SCH ×4 (08:42→20:50)
[2023-06-01] MEDS: ASPIRIN 81 MG ECTAB PO SCH (08:46)
[2023-06-01] MEDS: ATORVASTATIN 40 MG TAB PO SCH (08:46)
[2023-06-01] MEDS: methylPREDNISolone 40 MG in SYRINGE 0 ML IV SCH ×2 (08:46→20:51)
[2023-06-01] MEDS: MAGNESIUM OXIDE 400 MG TAB PO SCH (08:47)
[2023-06-01] MEDS: VENLAFAXINE HCL XR 75 MG CAPXR PO SCH (08:47)
[2023-06-01] MEDS: DOCUSATE SODIUM 100 MG CAP PO SCH ×2 (08:47→20:50)
[2023-06-01] MEDS: amLODIPine BESYLATE 5 MG TAB PO SCH (08:47)
[2023-06-01] MEDS: PANTOprazole 40 MG TAB PO SCH (08:47)
[2023-06-01] MEDS: AZITHROMYCIN 250 MG TAB PO SCH (08:47)
[2023-06-01] MEDS: LORATADINE 10 MG TAB PO SCH (08:47)
[2023-06-01] MEDS: ATENOLOL 50 MG TABLET PO SCH (08:47)
[2023-06-01] MEDS: CEFEPIME 2,000 MG in SYRINGE 0 ML IV SCH ×2 (08:58→20:51)
[2023-06-01] MEDS: LANTUS PER UNIT CHARGE SQ SCH ×2 (09:08→20:49)
[2023-06-01 10:12] LABS: Estimated Average Glucose 177 mg/dl; Hemoglobin A1C 7.8 % (4.5-5.6)
--- NOTE | 2023-06-01 10:53 | Hospitalist Progress Note ---
Date of Service June 01, 2023 Assessment & Plan (1) Pneumonia of both lower lobes: Plan: Pt is a 73 yo male with PMH of recent right MCA stroke, HTN, diabetes, HLD, and COPD presenting from [facility] due to SOB. He test positive for COVID prior to presentation. Bibasilar bacterial pneumonia in the setting of COVID - CT showed extensive bilateral lower lobe opacities; procal 2.36; MRSA nares neg - ABG showed hypoxia w/o hypercapnia upon admission - blood cx negative - pt s/p zosyn and vanco in the ED: continue cefepime 2g q8hr (day 2)- consider narrowing ABX but considering pt's clinical status upon presentation and his slowly decreasing oxygen requirement, would keep ABX broad at this point - ?COPD hx; continue methylpred 40 mg BID (day 2), azithromycin 250 mg daily - suspect COVID virus itself is not contributing much to his PNA/symptoms; will hold on antivirals at this time - continue duoneb q4hr, flutter valve, incentive spirometry for mucous clearance and bronchodilation - continue to wean oxygen as able Hx of ischemic stroke - continue daily aspirin - component of possible aspiration noted on CT; aspiration precautions ordered - will plan for discharge back to [facility] for rehab when oxygen requirement reasonable (<6L) Elevated Cr - unsure of pt's baseline Cr; 1.62 upon admission - s/p 1 L NS - suspect this may be around pt's baseline and is not a sign of sepsis/septic shock considering his hemodynamic stability - continue to monitor Diabetes - Hgb A1c 7.8% - hold home medications - tightened glucose control today; goal BS 120-160, begin insulin glargine 15 units BID, CF 15, CR 8 Hx of DC - pt has hx of stent placement - troponin peaked in 20s and has since downtrended - continue daily aspirin, atenolol, atorvastatin Hypomagnesemia - 1.6 upon admission; repleted with 1g; repeat magnesium 2.2 - continue home magnesium oxide 400 mg daily Diet: heart healthy DVT ppx: lovenox Code: DNR/DNI Dispo: PCU, plan for discharge back to [facility] once oxygen requirement/symptoms allow (2) COVID-19: (3) Hypoxia: (4) Diabetes: (5) HTN (hypertension): (6) Hyperlipidemia: (7) Hypomagnesemia: Admission and Anticipated Discharge Date Admission Date: May 30, 2023 Supervising Physician Co-Signing Physician Notes ATTESTATION I also saw the patient and confirmed ya portions of the history and exam. I agree with the impression and plan in the resident documentation, and as summarized below. No new complaints this morning. He feels that his breathing is improved compared to yesterday. EXAM 111/73, 75, 18, 92% on 11 L/min Heart regular rate Respirations nonlabored DATA Labs WBC 14.85, hemoglobin 14.3 BUN 49, creatinine 1.66 Micro Blood and urine cultures dated 05/30/2023 are negative IMPRESSION & PLAN I agree with the impression and plan as noted in the resident documentation, with significant diagnoses/plan below Sepsis, POA Hypoxic respiratory failure, improving Bibasilar pneumonia in the setting of COVID Leukocytosis, tachycardia, elevated procalcitonin Improving with IV antibiotics, IV fluids COPD exacerbation In setting of acute infection Improved with current care, including IV steroids Additional per resident documentation Subjective Pt feeling better than yesterday. He denies chest pain and SOB. No new concerns. Review of Systems Review of Systems: As per HPI Physical Exam Physical Exam: Constitutional: well appearing, no acute distress HEENT: normocephalic, no conjunctival injection CV: regular rhythm, regular rate, no murmur, no LE edema Respiratory: Clear to auscultation bilaterally. No rhonchi, wheezes, or crackles. No increased work of breathing MSK: no gross deformities noted Skin: warm, dry, no rashes Neuro: alert and oriented, tremors noted in BL upper and lower extremities Results & Data Results & Data Vital Signs (Past 12 Hours) Vital Signs Temp Pulse Pulse Resp BP Pulse Ox O2 Del Method 06/01/23 08:00 79 06/01/23 08:00 Nasal Cannula 06/01/23 07:40 36.4 C L 86 19 128/75 95 Nasal Cannula 06/01/23 04:44 36.5 C 83 20 137/85 95 High Flow Nasal Cannula 06/01/23 02:17 80 20 91 Nasal Cannula 05/31/23 23:26 83 05/31/23 23:20 Free Flow/Blow-by O2 Flow Rate FiO2 06/01/23 08:00 06/01/23 08:00 11 06/01/23 07:40 11 10/02/23 04:44 11 06/01/23 02:17 11 05/31/23 23:26 05/31/23 23:20 11 Resident Activity Tracking Resident Involvement: Resident Care Provided Care Provided: Adult Hospital Medicine
[2023-06-01] MEDS: ENOXAPARIN INJ 40 MG/0.4 ML SYR SQ SCH (20:50)
[2023-06-02] MEDS: ALBUT/IPRATROP 3MG/0.5MG NEB 3 ML VIAL NEB SCH ×6 (03:34→22:04)
--- NOTE | 2023-06-02 07:15 | Hospitalist Progress Note ---
Date of Service June 02, 2023 Assessment & Plan (1) Pneumonia of both lower lobes: Plan: Pt is a 73 yo male with PMH of recent right MCA stroke, HTN, diabetes, HLD, and COPD presenting from [facility] due to SOB. He test positive for COVID prior to presentation. Bibasilar bacterial pneumonia in the setting of COVID - CT showed extensive bilateral lower lobe opacities; procal 2.36- repeat 0.96; MRSA nares neg - ABG showed hypoxia w/o hypercapnia upon admission - blood cx negative - pt s/p zosyn and vanco in the ED: continue cefepime 2g q8hr (day 3)- consider narrowing ABX but considering pt's clinical status upon presentation and his slowly decreasing oxygen requirement, will continue broad ABX - ?COPD hx; continue methylpred 40 mg BID (day 3), azithromycin 250 mg daily - suspect COVID virus itself is not contributing much to his PNA/symptoms; will hold on antivirals at this time - continue duoneb q4hr, flutter valve, incentive spirometry for mucous clearance and bronchodilation - continue to wean oxygen as able - repeat CXR today showed improved of PNA since admission CXR Hx of ischemic stroke - continue daily aspirin - component of possible aspiration noted on CT; aspiration precautions ordered - will plan for discharge back to [facility] for rehab when oxygen requirement reasonable (<6L) Elevated Cr - unsure of pt's baseline Cr; 1.62 upon admission - after fluid resuscitation, pt's Cr unchanged- suspect this is around his baseline - continue to monitor Diabetes - Hgb A1c 7.8% - hold home medications - tighten glucose control further: goal BS 110-150, increase insulin glargine to 22 units BID, CF 15, CR 6 Hx of DC - pt has hx of stent placement - troponin peaked in 20s and has since downtrended - continue daily aspirin, atenolol, atorvastatin Hypomagnesemia - 1.6 upon admission; repleted with 1g; repeat magnesium 2.2 - continue home magnesium oxide 400 mg daily Diet: heart healthy DVT ppx: heparin Code: DNR/DNI Dispo: PCU, plan for discharge back to [facility] once oxygen requirement/symptoms allow (2) COVID-19: (3) Hypoxia: (4) Diabetes: (5) HTN (hypertension): (6) Hyperlipidemia: (7) Hypomagnesemia: Admission and Anticipated Discharge Date Admission Date: May 30, 2023 Supervising Physician Co-Signing Physician Notes ATTESTATION I also saw the patient and confirmed ya portions of the history and exam. I agree with the impression and plan in the resident documentation, and as summarized below. He feels about the same this morning. Still requiring 11 L via nasal cannula EXAM 125/76, 81, 9018, 36.3, 90% (11) Heart regular rate Respirations nonlabored DATA Labs White blood cell count slightly improved at 13.95. Hemoglobin stable at 14.3 Potassium elevated 5.5 BUN 43, creatinine 1.53 Procalcitonin improved, 2.36 to 0.96 Micro Blood and urine cultures dated 05/30/2023 are negative Imaging Chest x-ray dated 06/02/2023 looks improved, although significantly underpenetrated IMPRESSION & PLAN I agree with the impression and plan as noted in the resident documentation, with significant diagnoses/plan below Sepsis, POA Hypoxic respiratory failure, improving Bibasilar pneumonia in the setting of COVID Leukocytosis, tachycardia, elevated procalcitonin -all trending towards improvement Chest x-ray looks improved Will attempt to decrease oxygen COPD exacerbation In setting of acute infection Improved with current care, including IV steroids Additional per resident documentation Subjective Pt feeling the same today. No new chest pain or SOB. He is wondering when he can be discharged. Review of Systems Review of Systems: As per HPI Physical Exam Physical Exam: Constitutional: well appearing, no acute distress HEENT: normocephalic, no conjunctival injection CV: regular rhythm, regular rate, no murmur, no LE edema Respiratory: Clear to auscultation bilaterally. Decreased breath sounds in bilateral lung bases. No increased work of breathing MSK: no gross deformities noted Skin: warm, dry, no rashes Neuro: alert and oriented Results & Data Results & Data Vital Signs (Past 12 Hours) Vital Signs Temp Pulse Pulse Resp BP Pulse Ox O2 Del Method 06/02/23 03:00 36.7 C 84 19 126/79 89 L Nasal Cannula 06/02/23 00:00 85 06/01/23 23:05 36.7 C 81 18 124/74 92 Free Flow/Blow-by 06/01/23 22:37 78 18 90 Nasal Cannula 06/01/23 20:00 Free Flow/Blow-by 06/01/23 20:00 36.5 C 82 18 126/75 90 Nasal Cannula 06/01/23 19:31 82 18 90 Nasal Cannula O2 Flow Rate 06/02/23 03:00 06/02/23 00:00 06/01/23 23:05 11 06/01/23 22:37 11 06/01/23 20:00 11 06/01/23 20:00 06/01/23 19:31 11 Resident Activity Tracking Resident Involvement: Resident Care Provided Care Provided: Adult Hospital Medicine
[2023-06-02 07:48] LABS: Hematocrit (blood only) 43.2 % (42.0-52.0); Hemoglobin 14.3 g/dl (14.0-18.0); Mean Corpuscular Hemoglobin 33.2 pg (25.0-34.0); Mean Corpuscular Hgb Conc 33.1 g/dL (32.0-36.0); Mean Corpuscular Volume 100.2 fL (80.0-100.0); Mean Platelet Volume 10.9 fL (9.4-12.4); Platelet Count 217 K/uL (130-400); RDW Coefficient of Variation 13.2 % (11.5-14.5); RDW Standard Deviation 49.1 fL (36.4-46.3); Red Blood Count 4.31 M/uL (4.70-6.10); White Blood Count 13.95 K/ul (4.8-10.8)
[2023-06-02 08:12] LABS: BUN Creatinine Ratio 28.1 (10-20); Calcium 9.1 mg/dl (8.6-10.3); Creatinine Clr Calc Pharmacy 49.2 ml/min; Est GFR (African American) 50.8 ml/min; Est GFR (Non-African American) 43.8 ml/min; Magnesium 2.3 mg/dl (1.7-2.4); Potassium 5.5 mmol/L (3.5-5.1)
[2023-06-02] MEDS ORDERED: SODIUM ZIRCONIUM CYCLOSILICATE 10 GM PACKET PO STA (08:38)
[2023-06-02] MEDS: INSULIN ASPART PER UNIT CHARGE SC SCH ×4 (08:41→20:59)
[2023-06-02] MEDS: LANTUS PER UNIT CHARGE SQ SCH ×2 (08:42→20:59)
[2023-06-02] MEDS: CEFEPIME 2,000 MG in SYRINGE 0 ML IV SCH ×2 (08:46→21:01)
[2023-06-02] MEDS: ASPIRIN 81 MG ECTAB PO SCH (08:46)
[2023-06-02] MEDS: VENLAFAXINE HCL XR 75 MG CAPXR PO SCH (08:46)
[2023-06-02] MEDS: ATENOLOL 50 MG TABLET PO SCH (08:46)
[2023-06-02] MEDS: MAGNESIUM OXIDE 400 MG TAB PO SCH (08:46)
[2023-06-02] MEDS: ATORVASTATIN 40 MG TAB PO SCH (08:47)
[2023-06-02] MEDS: AZITHROMYCIN 250 MG TAB PO SCH (08:47)
[2023-06-02] MEDS: PANTOprazole 40 MG TAB PO SCH (08:47)
[2023-06-02] MEDS: LORATADINE 10 MG TAB PO SCH (08:47)
[2023-06-02] MEDS: DOCUSATE SODIUM 100 MG CAP PO SCH ×2 (08:47→20:59)
[2023-06-02] MEDS: amLODIPine BESYLATE 5 MG TAB PO SCH (08:47)
[2023-06-02] MEDS: methylPREDNISolone 40 MG in SYRINGE 0 ML IV SCH ×2 (09:45→21:00)
--- NOTE | 2023-06-02 11:02 | XRay Report ---
XR chest 1V portable CLINICAL HISTORY: f/u PNA TECHNIQUE: Single frontal radiograph of the chest was obtained. Comparison: Comparison is made to chest radiograph 05/30/2023 FINDINGS: Exam is limited by underpenetration. The cardiomediastinal silhouette is stable. Previously noted air space opacities have resolved. No evidence of pleural effusion or pneumothorax. A hiatal hernia is se en. IMPRESSION: Previously noted airspace opacities have resolved. ACT 112: Negative or not required by law. Electronically signed by: Luis Eduardo Lanier M.D. 06/02/2023 11:01 AM
[2023-06-02] MEDS: HEPARIN SOD 5,000 UNIT/0.5 ML VIAL SQ SCH (20:59)
[2023-06-03] MEDS: ALBUT/IPRATROP 3MG/0.5MG NEB 3 ML VIAL NEB SCH ×6 (03:48→22:00)
--- NOTE | 2023-06-03 07:43 | Hospitalist Progress Note ---
Date of Service June 03, 2023 Assessment & Plan (1) Pneumonia of both lower lobes: Plan: Pt is a 73 yo male with PMH of recent right MCA stroke, HTN, diabetes, HLD, and COPD presenting from [facility] due to SOB. He test positive for COVID prior to presentation. Bibasilar bacterial pneumonia in the setting of COVID - CT showed extensive bilateral lower lobe opacities; procal 2.36- repeat 0.96; MRSA nares neg - ABG showed hypoxia w/o hypercapnia upon admission - blood cx negative - repeat CXR 06/02 showed improvement in opacities; consider repeat chest CT tomorrow if no meaningful improvement in oxygen requirement - pt s/p zosyn and vanco in the ED: continue cefepime 2g q8hr (day 4) - ?COPD hx; s/p 3 days 40 mg methylprednisone BID, will decrease to daily, azithromycin 250 mg daily x5 days - suspect COVID virus itself is not contributing much to his PNA/symptoms; will hold on antivirals at this time - continue duoneb q4hr, flutter valve, incentive spirometry for mucous clearance and bronchodilation - continue to wean oxygen as able (currently ~11-12L requirement) Hx of ischemic stroke - continue daily aspirin - component of possible aspiration noted on CT; aspiration precautions ordered - will plan for discharge back to [facility] for rehab when oxygen requirement reasonable (<6L) Elevated Cr - unsure of pt's baseline Cr; 1.62 upon admission - after fluid resuscitation, pt's Cr unchanged- suspect this is around his baseline - continue to monitor Diabetes - Hgb A1c 7.8% - hold home medications - goal BS 110-150, increase insulin glargine to 22 units BID, CF 15, CR 4 Hx of CA - pt has hx of stent placement - troponin peaked in 20s and has since downtrended - continue daily aspirin, atenolol, atorvastatin Hypomagnesemia - 1.6 upon admission; repleted with 1g; repeat magnesium 2.2 - continue home magnesium oxide 400 mg daily Diet: heart healthy DVT ppx: heparin Code: DNR/DNI Dispo: PCU, plan for discharge back to [facility] once oxygen requirement/symptoms allow (2) COVID-19: (3) Hypoxia: (4) Diabetes: (5) HTN (hypertension): (6) Hyperlipidemia: (7) Hypomagnesemia: Admission and Anticipated Discharge Date Admission Date: May 30, 2023 Supervising Physician Co-Signing Physician Notes ATTESTATION I also saw the patient and confirmed ya portions of the history and exam. I agree with the impression and plan in the resident documentation, and as summarized below. He feels about the same this morning -not great, just notes that he feels the same. Still requiring 11 L via nasal cannula, although with repositioning of SPO2 monitor, he looks to be in the mid 90s on his current oxygen of 11 L. EXAM 121/73, 72, 19, 36.6, 91% SPO2 on 11 L Heart regular rate Respirations nonlabored; breath sounds are decreased, decent air exchangeno wheezing appreciated DATA Labs 30 BC down to 10.41, hemoglobin up to 15.2 Sodium 133, potassium 5.0, BUN 38, creatinine 1.44 BUN 43, creatinine 1.53 Micro Blood and urine cultures dated 05/30/2023 are negative Imaging Chest x-ray dated 06/02/2023 looks improved, although significantly underpenetrated IMPRESSION & PLAN I agree with the impression and plan as noted in the resident documentation, with significant diagnoses/plan below Sepsis, POA Hypoxic respiratory failure, improving Bibasilar pneumonia in the setting of COVID Not quite sure if his SPO2 is better than it appears; discussed with nurse, will attempt to wean oxygen If truly continued oxygen requirement, consider repeat CT Leukocytosis, tachycardia, elevated procalcitonin -all trending towards improvement Chest x-ray yesterday looks improved COPD exacerbation In setting of acute infection Recommend weaning steroids; transition to p.o. Additional per resident documentation Subjective Pt feeling about the same as previous days. He denies SOB or any breathing troubles. Review of Systems Review of Systems: As per HPI Physical Exam Physical Exam: Constitutional: well appearing, no acute distress HEENT: normocephalic, no conjunctival injection CV: regular rhythm, regular rate, no murmur, no LE edema Respiratory: No rhonchi, wheezes, or crackles, diminished lung sounds in bilateral lung bases. No increased work of breathing MSK: no gross deformities noted Skin: warm, dry, no rashes Neuro: alert, oriented, no FND noted Results & Data Results & Data Vital Signs (Past 12 Hours) Vital Signs Temp Pulse Pulse Resp BP BP Pulse Ox 06/03/23 07:27 68 18 91 06/03/23 07:21 36.7 C 89 21 159/90 H 95 06/03/23 03:31 36.4 C L 73 18 145/78 H 91 06/03/23 03:48 76 20 92 06/02/23 22:37 36.8 C 80 18 138/80 94 06/02/23 22:42 78 06/02/23 20:00 06/02/23 22:04 78 20 92 06/02/23 19:54 77 20 O2 Del Method O2 Flow Rate 06/03/23 07:27 Nasal Cannula 12 06/03/23 07:21 High Flow Nasal Cannula 12 06/03/23 03:31 High Flow Nasal Cannula 11 06/03/23 03:48 High Flow Nasal Cannula 12 06/02/23 22:37 Free Flow/Blow-by 11 06/02/23 22:42 06/02/23 20:00 Free Flow/Blow-by 11 06/02/23 22:04 High Flow Nasal Cannula 12 06/02/23 19:54 Nasal Cannula 11 Resident Activity Tracking Resident Involvement: Resident Care Provided Care Provided: Adult Hospital Medicine
[2023-06-03] MEDS: INSULIN ASPART PER UNIT CHARGE SC SCH ×4 (08:22→20:55)
[2023-06-03] MEDS: LANTUS PER UNIT CHARGE SQ SCH ×2 (08:22→20:55)
[2023-06-03] MEDS: DOCUSATE SODIUM 100 MG CAP PO SCH ×2 (08:26→20:57)
[2023-06-03] MEDS: methylPREDNISolone 40 MG in SYRINGE 0 ML IV SCH (08:26)
[2023-06-03] MEDS: CEFEPIME 2,000 MG in SYRINGE 0 ML IV SCH (08:26)
[2023-06-03] MEDS: ATENOLOL 50 MG TABLET PO SCH (08:27)
[2023-06-03] MEDS: ATORVASTATIN 40 MG TAB PO SCH (08:27)
[2023-06-03] MEDS: ASPIRIN 81 MG ECTAB PO SCH (08:27)
[2023-06-03] MEDS: amLODIPine BESYLATE 5 MG TAB PO SCH (08:27)
[2023-06-03] MEDS: LORATADINE 10 MG TAB PO SCH (08:27)
[2023-06-03] MEDS: AZITHROMYCIN 250 MG TAB PO SCH (08:27)
[2023-06-03] MEDS: HEPARIN SOD 5,000 UNIT/0.5 ML VIAL SQ SCH ×2 (08:27→20:57)
[2023-06-03] MEDS: MAGNESIUM OXIDE 400 MG TAB PO SCH (08:28)
[2023-06-03] MEDS: VENLAFAXINE HCL XR 75 MG CAPXR PO SCH (08:28)
[2023-06-03] MEDS: PANTOprazole 40 MG TAB PO SCH (08:28)
[2023-06-03 08:30] LABS: Hematocrit (blood only) 44.4 % (42.0-52.0); Hemoglobin 15.2 g/dl (14.0-18.0); Mean Corpuscular Hemoglobin 33.5 pg (25.0-34.0); Mean Corpuscular Hgb Conc 34.2 g/dL (32.0-36.0); Mean Corpuscular Volume 97.8 fL (80.0-100.0); Mean Platelet Volume 10.9 fL (9.4-12.4); Platelet Count 220 K/uL (130-400); RDW Coefficient of Variation 12.9 % (11.5-14.5); RDW Standard Deviation 46.5 fL (36.4-46.3); Red Blood Count 4.54 M/uL (4.70-6.10); White Blood Count 10.41 K/ul (4.8-10.8)
[2023-06-03 08:45] LABS: BUN Creatinine Ratio 26.4 (10-20); Calcium 9.2 mg/dl (8.6-10.3); Est GFR (African American) 54.7 ml/min; Est GFR (Non-African American) 47.2 ml/min
[2023-06-03] MEDS ORDERED: PIPER/TAZO 4.5g in D5W MINI-B 100 ML IV ONE (18:45)
--- NOTE | 2023-06-03 21:02 | CT Scan Report ---
CT chest diagnostic wo con CLINICAL HISTORY: persistent oxygen requirement TECHNIQUE: Multidetector row helical CT of the chest was performed. Coronal and sagittal reformations were obtained. Automated dose lowering techniques and/or adjustment according to patient size were u tilized for this exam. CT DOSE: 771.40 mGy.cm Comparison: Comparison is made to CTA chest 05/30/2020 FINDINGS: Lungs and pleura: Opacification and volume loss of the left greater than right lower lobes noted. Rig ht lower lobe is slightly better aerated than in the prior exam. There is interval development of a f ew groundglass opacities in the right greater than left upper lobes as well. Heart and pericardium: Heart size is normal. No pericardial effusion. Vessels: Severe atherosclerotic changes in the aorta and coronary arteries. 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 Multiple mediastinal lym ph nodes measure up to 11 mm, unchanged from prior exam. Chest wall and lower neck: Unremarkable. Abdomen: A large hiatal hernia is seen. Bones: Degenerative changes in the thoracic spine. Compression deformity of T7 is unchanged from prio r. IMPRESSION: 1. Findings compatible with continued atelectasis of the bilateral lower lungs. Superimposed consoli dation, particularly of the left lower lung, may be present. A few scattered groundglass nodules like ly represent infectious/inflammatory process, new from prior exam. Lymphadenopathy may be reactive. 2. Large hiatal hernia. ACT 112: Negative or not required by law. Electronically signed by: Luis Eduardo Lanier M.D. 06/03/2023 8:55 PM
[2023-06-03] MEDS: PIPERACILLIN/TAZOBACTAM 4.5 GM in DEXTROSE 5% MINI-B 100 ML IV SCH (23:54)
[2023-06-04] MEDS: ALBUT/IPRATROP 3MG/0.5MG NEB 3 ML VIAL NEB SCH ×5 (02:15→22:25)
--- NOTE | 2023-06-04 06:44 | Hospitalist Progress Note ---
Date of Service June 04, 2023 Assessment & Plan (1) Pneumonia of both lower lobes: Plan: Pt is a 73 yo male with PMH of recent right MCA stroke, HTN, diabetes, HLD, and COPD presenting from [facility] due to SOB. He tested positive for COVID prior to presentation. Bibasilar bacterial pneumonia in the setting of COVID - CT showed extensive bilateral lower lobe opacities; procal 2.36- repeat 0.96; MRSA nares neg - ABG showed hypoxia w/o hypercapnia upon admission - blood cx negative - repeat CXR 06/02 showed improvement in opacities; repeat chest CT 06/03 showed what seemed to be a progressed LLL pneumonia - pt s/p zosyn and vanco in the ED; s/p cefepime 2g q8hr x4days; switched to zosyn 06/03 for anaerobic coverage - no antivirals given - ?COPD hx; s/p 3 days 40 mg methylprednisone BID, will decrease to daily (day 2), azithromycin 250 mg daily x5 days - continue duoneb q4hr, flutter valve, incentive spirometry for mucous clearance and bronchodilation - pulm consulted; concern for aspiration- VFSS did not show aspiration - continue to wean oxygen as able Hx of ischemic stroke - continue daily aspirin - component of possible aspiration noted on CT; aspiration precautions ordered - will plan for discharge back to [facility] for rehab when oxygen requirement reasonable (<6L) Elevated Cr - unsure of pt's baseline Cr; 1.62 upon admission - after fluid resuscitation, pt's Cr unchanged- suspect this is around his baseline - continue to monitor Diabetes - Hgb A1c 7.8% - hold home medications - tightened control again 06/04: goal BS 110-150, increase insulin glargine to 25 units BID, CF 15, CR 4 Hx of SC - pt has hx of stent placement - troponin peaked in 20s and has since downtrended - continue daily aspirin, atenolol, atorvastatin Hypomagnesemia - 1.6 upon admission; repleted with 1g; repeat magnesium 2.2 - continue home magnesium oxide 400 mg daily Diet: heart healthy DVT ppx: heparin Code: DNR/DNI Dispo: PCU, plan for discharge back to [facility] once oxygen requirement/symptoms allow (2) COVID-19: (3) Hypoxia: (4) Diabetes: (5) HTN (hypertension): (6) Hyperlipidemia: (7) Hypomagnesemia: Admission and Anticipated Discharge Date Admission Date: May 30, 2023 Supervising Physician Co-Signing Physician Notes ATTESTATION I also saw the patient and confirmed ya portions of the history and exam. I agree with the impression and plan in the resident documentation, and as summarized below. EXAM 124/78, 77, 19, 36.9, 90% on nasal cannula 15 L per Heart regular rate Respirations nonlabored; breath sounds are decreased in bases, decent air exchangeno wheezing appreciated DATA Labs White blood cell count 9.97, hemoglobin 15.2 Sodium 134, potassium 4.4, BUN 37, creatinine 1.58 IMPRESSION & PLAN I agree with the impression and plan as noted in the resident documentation, with significant diagnoses/plan below Sepsis, POA Hypoxic respiratory failure Bibasilar pneumonia in the setting of COVID Appreciate pulmonary consultation CoughAssist Wean oxygen as able Steroids have been changed to p.o., slow taper Additional per resident documentation Subjective Pt states he is feeling "terrible" this morning. This is due to the fact that he wasn't given breakfast/allowed to drink d/t possibility of procedure. He states his breathing is the same. No new concerns. Review of Systems Review of Systems: As per HPI Physical Exam Physical Exam: Constitutional: well appearing, no acute distress HEENT: normocephalic, no conjunctival injection CV: regular rhythm, regular rate, no murmur, no LE edema Respiratory: Clear to auscultation bilaterally with diminished breath sounds in bilateral bases. No increased work of breathing MSK: no gross deformities noted Skin: warm, dry, no rashes Neuro: alert, oriented, no FND noted Results & Data Results & Data Vital Signs (Past 12 Hours) Vital Signs Temp Pulse Pulse Resp BP Pulse Ox O2 Del Method 06/04/23 03:38 37.1 C 79 18 143/81 H 91 Nasal Cannula 06/04/23 00:00 83 06/03/23 20:00 Nasal Cannula 06/03/23 23:03 36.7 C 81 16 143/81 H 92 High Flow Nasal Cannula 06/03/23 20:03 77 20 90 Nasal Cannula 06/03/23 19:43 36.7 C 82 16 153/78 H 90 High Flow Nasal Cannula O2 Flow Rate 06/04/23 03:38 15.0 10/05/23 00:00 06/03/23 20:00 15 06/03/23 23:03 15 06/03/23 20:03 15 06/03/23 19:43 15 Resident Activity Tracking Resident Involvement: Resident Care Provided Care Provided: Adult Hospital Medicine
--- NOTE | 2023-06-04 07:59 | Pulmonary Consultation ---
Date of Consultation June 04, 2023 Assessment & Plan (1) Atelectasis of both lungs: (2) COVID-19: (3) Acute respiratory failure with hypoxia: Plan CT chest 06/03/2023 personally reviewed: Bilateral lower lobe pneumonia, more prominent in the left lower lobe Minimal patchy groundglass opacities in the right upper lobe Large hiatal hernia Minimal left-sided pleural effusion Food in the esophagus Minimal reactive mediastinal lymphadenopathy Improvement in the right lower lobe opacity/atelectasis compared to CT chest done 05/30/2023 ABG 05/30/2023: 7.38/33/65 on 15 L -- Acute on chronic hypoxic respiratory failure Multifactorial Patient is likely having aspiration pneumonia Atelectasis bilateral lower lobe. Bio fire positive for COVID-19, negative for everything else on 05/30/2023 Nasal MRSA negative Procalcitonin 0.17 Plan: Patient is likely aspirating with food in his esophagus as evident on previous CT chest Would recommend patient to be n.p.o. We will get CoughAssist for the patient. I will also add hypertonic saline as well as Mucomyst nebulized Hypoxia is likely from VQ mismatch from bilateral lower lobe atelectasis/pn eumonia Left sided pleural effusion is very minimal for any intervention. Case was discussed with RN at bedside Please note the above document was generated using voice recognition software. It may contain grammatical, syntax or spelling errors.Any formal questions or concerns about the content, text or information contained within the body of this dictation should be directly addressed to the provider for clarification. History of Present Illness Attending Physician: Terrance Guevara DO History of Present Illness 73-year-old male admitted to the hospital for shortness of breath Past medical history: Right MCA stroke, hypertension, diabetes, dyslipidemia, COPD Pulmonary consulted for hypoxia At the time of examination patient was resting comfortably. Not in any respiratory distress Overnight he was on 15 L nasal cannula saturating 89-90%. Denies any chest pain. Has been complaining of shortness of breath on minimal exertion. Coughing up clear phlegm. Denies any chest congestion. No headache, no blurry vision Has been afebrile. Allergies Allergy/AdvReac Type Severity Reaction Status Date / Time lisinopril AdvReac Fatigued Verified 05/31/23 07:38 Home Medications Medication Instructions Recorded Confirmed Type Aspir-81 81 mg PO DAILY 05/30/23 05/30/23 History Glucose Gel 15 g PO DAILY PRN Other 05/30/23 05/30/23 History Milk of Magnesia 30 ml PO DAILY PRN Constipation 05/30/23 05/30/23 History acetaminophen 325 mg tablet 650 mg PO DAILY PRN Pain 05/30/23 05/30/23 History allopurinol 300 mg tablet 300 mg PO DAILY 05/30/23 05/30/23 History amlodipine 5 mg tablet 5 mg PO DAILY 05/30/23 05/30/23 History ascorbic acid (vitamin C) 500 mg 250 mg PO DAILY 05/30/23 05/30/23 History tablet atenolol 50 mg tablet 50 mg PO DAILY 05/30/23 05/30/23 History atorvastatin 80 mg tablet 40 mg PO DAILY 05/30/23 05/30/23 History bisacodyl 10 mg rectal suppository 10 mg MS DAILY PRN Constipation 05/30/23 05/30/23 History dextrose 50 % in water (D50W) See Rx Instructions .Route .COMPLEX 05/30/23 05/30/23 History dextrose 50 % in water (D50W) See Rx Instructions .Route .COMPLEX 05/30/23 05/30/23 History docusate sodium 100 mg capsule 100 mg PO BID 05/30/23 05/30/23 History empagliflozin 25 mg tablet 25 mg PO DAILY 05/30/23 05/30/23 History (Jardiance) ferrous sulfate 325 mg (65 mg 325 mg PO DAILY 05/30/23 05/30/23 History iron) tablet glucagon 1 mg solution for See Rx Instructions .Route .COMPLEX 05/30/23 05/30/23 History injection heparin (porcine) 5,000 unit/mL 5,000 unit subcut DIRECTED 05/30/23 05/30/23 History injection solution insulin regular human 100 unit/mL 2 unit subcut USEASDIRECTD 05/30/23 05/30/23 History injection solution (Humulin R Regular U-100 Insulin) loratadine 10 mg tablet 10 mg PO DAILY 05/30/23 05/30/23 History magnesium oxide 400 mg PO DAILY 05/30/23 05/30/23 History metformin 500 mg tablet,extended 1,000 mg PO DAILY 05/30/23 05/30/23 History release 24 hr mineral oil 118 ml MS DAILY PRN Constipation 05/30/23 05/30/23 History ondansetron 4 mg disintegrating 4 mg PO Q4H PRN N/V 05/30/23 05/30/23 History tablet pantoprazole 40 mg tablet,delayed 40 mg PO DAILY 05/30/23 05/30/23 History release polyethylene glycol 3350 17 17 g PO DAILY PRN Constipation 05/30/23 05/30/23 History gram/dose oral powder semaglutide 1 mg/dose (2 mg/1.5 See Rx Instructions .Route .COMPLEX 05/30/23 05/30/23 History mL) subcutaneous pen injector (Ozempic) sennosides 8.6 mg-docusate sodium 1 tab-cap PO HS PRN Constipation 05/30/23 05/30/23 History 50 mg tablet (Senokot-S) sodium chloride 0.9 % See Rx Instructions .Route 05/30/23 05/30/23 History .COMPLEX PRN Other venlafaxine 75 mg capsule,extended 75 mg PO DAILY 05/30/23 05/30/23 History release 24 hr Patient History Social History Smoking Status: Former smoker Tobacco Type: Cigarettes Hx Alcohol Use: Yes (Previous use, over 10 years ago) Alcohol type: beer Hx Substance Use: No Preferred Language: French Communication Ability: Effective Project Engineer Required: No Beliefs That Will Affect Care: None Current Living Situation: Spouse and Family Current Living Situation Comment: Lives at home with son and Feels Safe at Home: No Is there a partner from a previous relationship who is making you feel unsafe now?: No Assistive Devices: None Review of Systems Review of Systems: All systems reviewed & are unremarkable except as noted in HPI & below Physical Exam Physical Exam: Constitutional: No acute distress HEENT: EOMI, PERRLA Respiratory system: Decreased air entry bilaterally especially posteriorly, no wheeze, no rhonchi, positive crackles bilateral lower lobes CVS: S1-S2 positive, no murmurs or gallops Abdomen: Soft, nontender, nondistended, positive bowel sounds x4 Extremities: +2 pulses bilaterally radialis/ dorsalis pedis, no cyanosis, no edema Neuro: Awake alert oriented x3, minimal weakness appreciated in the left upper and left lower extremity Psych: Normal mood and affect G/U: Positive Martin Skin: no rashes, warm and dry Lymphatic: no cervical or axillary lymphadenopathy Results & Data Results & Data Vital Signs (Past 12 Hours) Vital Signs Temp Pulse Pulse Resp BP Pulse Ox O2 Del Method 06/04/23 07:04 79 17 90 Nasal Cannula 06/04/23 03:38 37.1 C 79 18 143/81 H 91 Nasal Cannula 06/04/23 00:00 83 06/03/23 20:00 Nasal Cannula 06/03/23 23:03 36.7 C 81 16 143/81 H 92 High Flow Nasal Cannula 06/03/23 20:03 77 20 90 Nasal Cannula O2 Flow Rate 06/04/23 07:04 15 06/04/23 03:38 15.0 06/04/23 00:00 06/03/23 20:00 15 06/03/23 23:03 15 06/03/23 20:03 15 Laboratory Results 06/04/23 07:09 06/04/23 07:09 PG Care Time/CCT Total # of Minutes Spent Total Time Spent with Patient: Total time spent is greater than 50% in coordination of care (as documented) at patient's floor/unit and/or counseling patient: Coding Level of Care Code 53519 INT INP/OBS CARE 3/75MIN Diagnoses Atelectasis of both lungs J98.11 COVID-19 U07.1 Acute respiratory failure with hypoxia J96.01
[2023-06-04 08:01] LABS: Hematocrit (blood only) 45.6 % (42.0-52.0); Hemoglobin 15.2 g/dl (14.0-18.0); Mean Corpuscular Hemoglobin 33.1 pg (25.0-34.0); Mean Corpuscular Hgb Conc 33.3 g/dL (32.0-36.0); Mean Corpuscular Volume 99.3 fL (80.0-100.0); Mean Platelet Volume 11.1 fL (9.4-12.4); Platelet Count 250 K/uL (130-400); RDW Standard Deviation 47.5 fL (36.4-46.3); Red Blood Count 4.59 M/uL (4.70-6.10); White Blood Count 9.97 K/ul (4.8-10.8)
[2023-06-04 08:28] LABS: BUN Creatinine Ratio 23.4 (10-20); Creatinine Clr Calc Pharmacy 47.4 ml/min; Est GFR (African American) 48.9 ml/min; Est GFR (Non-African American) 42.2 ml/min; Potassium 4.4 mmol/L (3.5-5.1)
[2023-06-04] MEDS: DOCUSATE SODIUM 100 MG CAP PO SCH ×2 (09:28→21:08)
[2023-06-04] MEDS: amLODIPine BESYLATE 5 MG TAB PO SCH (09:28)
[2023-06-04] MEDS: ATORVASTATIN 40 MG TAB PO SCH (09:28)
[2023-06-04] MEDS: PANTOprazole 40 MG TAB PO SCH (09:28)
[2023-06-04] MEDS: VENLAFAXINE HCL XR 75 MG CAPXR PO SCH (09:28)
[2023-06-04] MEDS: ATENOLOL 50 MG TABLET PO SCH (09:28)
[2023-06-04] MEDS: MAGNESIUM OXIDE 400 MG TAB PO SCH (09:28)
[2023-06-04] MEDS: ASPIRIN 81 MG ECTAB PO SCH (09:28)
[2023-06-04] MEDS: PIPERACILLIN/TAZOBACTAM 4.5 GM in DEXTROSE 5% MINI-B 100 ML IV SCH ×2 (09:41→17:35)
[2023-06-04] MEDS: methylPREDNISolone 40 MG in SYRINGE 0 ML IV SCH (09:41)
[2023-06-04] MEDS: INSULIN ASPART PER UNIT CHARGE SC SCH ×4 (09:46→20:41)
[2023-06-04] MEDS: LANTUS PER UNIT CHARGE SQ SCH ×2 (09:47→20:40)
[2023-06-04] MEDS: LORATADINE 10 MG TAB PO SCH (09:56)
[2023-06-04] MEDS ORDERED: LACTATED RINGER'S 1,000 ML IV SCH (10:15)
--- NOTE | 2023-06-04 13:37 | Fluoroscopy Report ---
FL video swallow CLINICAL HISTORY: r/o aspiration TECHNIQUE: Video fluoroscopy of the pharyngeal region was performed as barium mixtures of varying con sistencies were administered to the patient by the speech pathologist. A formal esophagram was not pe rformed. Comparison: None available at the time of this dictation. FINDINGS: Total fluoroscopy time: 2.1 minutes. Radiation dose: 8.58 mGy. The patient swallowed the different barium consistencies without difficulty. There was no laryngeal v estibular penetration or sally tracheal aspiration. IMPRESSION: No evidence of aspiration. Please see the speech pathology report for further details. ACT 112: Negative or not required by law. Electronically signed by: Luis Eduardo Lanier M.D. 06/04/2023 1:36 PM
[2023-06-04] MEDS ORDERED: ACETYLCYSTEINE 20% INHAL SOLN 4ML ***DISPENSED BY RESP. INH SCH (16:00)
[2023-06-04] MEDS: ACETAMINOPHEN 325 MG TAB PO PRN (17:44)
[2023-06-04] MEDS: ACETYLCYSTEINE 20% INHAL SOLN 4ML ***DISPENSED BY RESP. INH SCH (19:23)
[2023-06-04] MEDS: SODIUM CHLOR 7% 4 ML NEB NEB SCH (19:23)
[2023-06-04] MEDS: HEPARIN SOD 5,000 UNIT/0.5 ML VIAL SQ SCH (20:55)
[2023-06-05] MEDS: PIPERACILLIN/TAZOBACTAM 4.5 GM in DEXTROSE 5% MINI-B 100 ML IV SCH ×3 (00:19→16:55)
[2023-06-05 06:34] LABS: iSTAT Allen Test Pass; iSTAT Art Bld Gas pCO2 Correct 40 mmHg (35-46); iSTAT Art Bld Gas pH Corrected 7.399 (7.35-7.45); iSTAT Arterial Blood Gas HCO3 24 meg/L (19-24); iSTAT Arterial Blood Gas pCO2 40 mmHg (35-46); iSTAT Arterial Blood Gas pO2 63 mmHg (80-95); iSTAT Arterial Blood Gas pO2 C 63; iSTAT Carbon Dioxide 26 mmol/L (24-31); iSTAT Hematocrit 46 % (42-52); iSTAT Hemoglobin 15.6 g/dl (14.0-18.0); iSTAT Potassium 4.5 mmol/L (3.3-5.0); iSTAT Site R Brachial; iSTAT Sodium 133 mmol/L (135-144)
[2023-06-05] MEDS: ALBUT/IPRATROP 3MG/0.5MG NEB 3 ML VIAL NEB SCH ×3 (07:02→23:49)
[2023-06-05] MEDS: ACETYLCYSTEINE 20% INHAL SOLN 4ML ***DISPENSED BY RESP. INH SCH ×2 (07:03→19:17)
[2023-06-05] MEDS: SODIUM CHLOR 7% 4 ML NEB NEB SCH ×2 (07:03→19:18)
--- NOTE | 2023-06-05 07:21 | Hospitalist Progress Note ---
Date of Service June 05, 2023 Assessment & Plan (1) Pneumonia of both lower lobes: Plan: Pt is a 73 yo male with PMH of recent right MCA stroke, HTN, diabetes, HLD, and COPD presenting from [facility] due to SOB. He tested positive for COVID prior to presentation. Bibasilar bacterial pneumonia in the setting of COVID - CT showed extensive bilateral lower lobe opacities; procal 2.36 (repeat 0.96, 0.17); MRSA nares neg - ABG upon admission showed hypoxia w/o hypercapnia upon admission; repeat ABG 06/05 showed the same - blood cx negative - repeat CXR 06/02 showed improvement in opacities; repeat chest CT 06/03 showed what seemed to be a progressed LLL pneumonia - pt s/p zosyn and vanco in the ED; s/p cefepime 2g q8hr x4days; switched to zosyn 06/03 for anaerobic coverage - no antivirals given - ?COPD hx; s/p 3 days 40 mg methylprednisone BID, will decrease to daily (day 3), azithromycin 250 mg daily x5 days - continue duoneb q8hr, flutter valve, incentive spirometry, cough assist, hypertonic nebs, mucomyst, chest therapy for mucous clearance and bronchodilation - VFSS 06/04 did not show aspiration - pulm consulted - continue to wean oxygen as able Hx of ischemic stroke - continue daily aspirin - will plan for discharge back to [facility] for rehab when oxygen requirement reasonable (<6L) Elevated Cr - unsure of pt's baseline Cr; 1.62 upon admission - after fluid resuscitation, pt's Cr unchanged- suspect this is around his baseline - continue to monitor Diabetes - Hgb A1c 7.8% - hold home medications - tightened control again 06/04: goal BS 110-150, increase insulin glargine to 25 units BID, CF 15, CR 4 Hx of [place] - pt has hx of stent placement - troponin peaked in 20s and has since downtrended - continue daily aspirin, atenolol, atorvastatin Hypomagnesemia - 1.6 upon admission; repleted with 1g; repeat magnesium 2.2 - continue home magnesium oxide 400 mg daily Diet: heart healthy DVT ppx: heparin Code: DNR/DNI Dispo: PCU, plan for discharge back to [facility] once oxygen requirement/symptoms allow (2) COVID-19: (3) Hypoxia: (4) Diabetes: (5) HTN (hypertension): (6) Hyperlipidemia: (7) Hypomagnesemia: Admission and Anticipated Discharge Date Admission Date: May 30, 2023 Supervising Physician Co-Signing Physician Notes I personally examined the patient and verified ya points of history and exam, discussed case, and agree with decision making and plan documented by Dr. Chatterjee. Patient states feeling stable in setting of COVID-19 and pneuomina, he remains on zosyn and high flow oxygen, appreciate pulmonary recommendations, monitor closely. Subjective Pt with increasing oxygen requirement overnight. He denies shortness of breath or chest pain. He does state that he feels "terrible" but this has not changed over the past few days. Review of Systems Review of Systems: As per HPI Physical Exam Physical Exam: Constitutional: well appearing, no acute distress HEENT: normocephalic, no conjunctival injection CV: regular rhythm, regular rate, no murmur, no LE edema Respiratory: Rhonchus breath sounds in bilateral upper lobes, decreased breath sounds in bilateral bases. No increased work of breathing MSK: no gross deformities noted Skin: warm, dry, no rashes Neuro: alert, oriented; tremor of left UE/hand noted Results & Data Results & Data Vital Signs (Past 12 Hours) Vital Signs Temp Pulse Pulse Resp BP Pulse Ox O2 Del Method 06/05/23 07:07 69 19 94 High Flow Nasal Cannula 06/05/23 06:25 22 92 High Flow Nasal Cannula 06/05/23 05:42 55 L 20 87 L BiPAP 06/05/23 05:40 60 22 90 06/05/23 04:00 36.6 C 66 18 149/87 H 92 High Flow Nasal Cannula 06/05/23 02:07 64 19 90 High Flow Nasal Cannula 06/04/23 23:58 36.4 C L 61 18 133/83 95 High Flow Nasal Cannula 06/04/23 23:49 59 L 06/04/23 20:00 High Flow Nasal Cannula 06/04/23 22:26 17 95 High Flow Nasal Cannula 06/04/23 20:00 36.7 C 63 16 122/82 94 High Flow Nasal Cannula 06/04/23 19:41 63 93 06/04/23 19:24 25 H 93 High Flow Nasal Cannula O2 Flow Rate FiO2 06/05/23 07:07 40 100 06/05/23 06:25 40 100 06/05/23 05:42 100 06/05/23 05:40 100 06/05/23 04:00 40 95 06/05/23 02:07 40 85 06/04/23 23:58 40 95 06/04/23 23:49 06/04/23 20:00 40 95 06/04/23 22:26 40 85 06/04/23 20:00 40 95 06/04/23 19:41 40 95 06/04/23 19:24 40 100 Resident Activity Tracking Resident Involvement: Resident Care Provided Care Provided: Adult Hospital Medicine
--- NOTE | 2023-06-05 07:35 | Pulmonology Progress Note ---
Date of Service June 05, 2023 Assessment & Plan (1) Atelectasis of both lungs: (2) COVID-19: (3) Acute respiratory failure with hypoxia: Plan CT chest 06/03/2023 personally reviewed: Bilateral lower lobe pneumonia, more prominent in the left lower lobe Minimal patchy groundglass opacities in the right upper lobe Large hiatal hernia Minimal left-sided pleural effusion Food in the esophagus Minimal reactive mediastinal lymphadenopathy Improvement in the right lower lobe opacity/atelectasis compared to CT chest done 05/30/2023 ABG 05/30/2023: 7.38/33/65 on 15 L -- Acute on chronic hypoxic respiratory failure Multifactorial Patient is likely having aspiration pneumonia Atelectasis bilateral lower lobe. Bio fire positive for COVID-19, negative for everything else on 05/30/2023 Nasal MRSA negative Procalcitonin 0.17 Plan: Given the significant increase in the oxygen requirement, chest x-ray was ordered which did not show any significant change compared to before. 2D echo ordered with contrast to look for interatrial shunt Continue with CoughAssist for the patient, hypertonic saline as well as Mucomyst nebulized Hypoxia is likely from VQ mismatch from bilateral lower lobe atelectasis/pneumonia Left sided pleural effusion is very minimal for any intervention. Case was discussed with RN at bedside Please note the above document was generated using voice recognition software. It may contain grammatical, syntax or spelling errors.Any formal questions or concerns about the content, text or information contained within the body of this dictation should be directly addressed to the provider for clarification. Admission and Anticipated Discharge Date Admission Date: May 30, 2023 Subjective Patient seen and examined at bedside. No acute distress He was saturating 93-94% on 40 L, 100% FiO2 Not in any respiratory distress Denied any chest pain. Shortness of breath is still persistent Review of Systems Review of Systems: All systems reviewed & are unremarkable except as noted in Subjective Physical Exam Physical Exam: Constitutional: No acute distress HEENT: EOMI, PERRLA Respiratory system: Decreased air entry bilaterally especially posteriorly, no wheeze, no rhonchi, positive crackles bilateral lower lobes CVS: S1-S2 positive, no murmurs or gallops Abdomen: Soft, nontender, nondistended, positive bowel sounds x4 Extremities: +2 pulses bilaterally radialis/ dorsalis pedis, no cyanosis, no edema Neuro: Awake alert oriented x3, mild weakness of the left upper and left lower extremity Psych: Normal mood and affect G/U: Positive Martin Skin: no rashes, warm and dry Lymphatic: no cervical or axillary lymphadenopathy Results & Data Results & Data Vital Signs (Past 12 Hours) Vital Signs Temp Pulse Pulse Resp BP Pulse Ox O2 Del Method 06/05/23 07:07 69 19 94 High Flow Nasal Cannula 06/05/23 06:25 22 92 High Flow Nasal Cannula 06/05/23 05:42 55 L 20 87 L BiPAP 06/05/23 05:40 60 22 90 06/05/23 04:00 36.6 C 66 18 149/87 H 92 High Flow Nasal Cannula 06/05/23 02:07 64 19 90 High Flow Nasal Cannula 06/04/23 23:58 36.4 C L 61 18 133/83 95 High Flow Nasal Cannula 06/04/23 23:49 59 L 06/04/23 20:00 High Flow Nasal Cannula 06/04/23 22:26 17 95 High Flow Nasal Cannula 06/04/23 20:00 36.7 C 63 16 122/82 94 High Flow Nasal Cannula 06/04/23 19:41 63 93 O2 Flow Rate FiO2 06/05/23 07:07 40 100 06/05/23 06:25 40 100 06/05/23 05:42 100 06/05/23 05:40 100 06/05/23 04:00 40 95 06/05/23 02:07 40 85 06/04/23 23:58 40 95 06/04/23 23:49 06/04/23 20:00 40 95 06/04/23 22:26 40 85 06/04/23 20:00 40 95 06/04/23 19:41 40 95 Laboratory Results 06/04/23 07:09 06/04/23 07:09 PG Care Time/CCT Total # of Minutes Spent Total Time Spent with Patient: Total time spent is greater than 50% in coordination of care (as documented) at patient's floor/unit and/or counseling patient: Coding Level of Care Code 47791 SUB INP/OBS CARE 2/35MIN Diagnoses Atelectasis of both lungs J98.11 COVID-19 U07.1 Acute respiratory failure with hypoxia J96.01
[2023-06-05 08:09] LABS: Hematocrit (blood only) 47.6 % (42.0-52.0); Hemoglobin 15.8 g/dl (14.0-18.0); Mean Corpuscular Hemoglobin 33.3 pg (25.0-34.0); Mean Corpuscular Hgb Conc 33.2 g/dL (32.0-36.0); Mean Corpuscular Volume 100.4 fL (80.0-100.0); Mean Platelet Volume 11.1 fL (9.4-12.4); Platelet Count 271 K/uL (130-400); RDW Standard Deviation 48.4 fL (36.4-46.3); Red Blood Count 4.74 M/uL (4.70-6.10); White Blood Count 11.83 K/ul (4.8-10.8)
[2023-06-05] MEDS: INSULIN ASPART PER UNIT CHARGE SC SCH ×4 (08:26→21:50)
--- NOTE | 2023-06-05 08:29 | XRay Report ---
XR chest 1V portable CLINICAL HISTORY: f/u TECHNIQUE: Single frontal radiograph of the chest was obtained. Comparison: Comparison is made to chest radiograph 06/02/2023 FINDINGS: No lines and tubes are seen. The cardiomediastinal silhouette is normal. There is a faint right lower lung air space opacity as well as left lower lung atelectasis. No evidence of pleural effusion or pn eumothorax. IMPRESSION: Left lower lung atelectasis. Right lower lung airspace opacity may represent atelectasis, pneumonia, and/or aspiration. ACT 112: Negative or not required by law. Electronically signed by: Luis Eduardo Lanier M.D. 06/05/2023 8:28 AM
[2023-06-05 08:30] LABS: BUN Creatinine Ratio 26.9 (10-20); Calcium 9.1 mg/dl (8.6-10.3); Creatinine Clr Calc Pharmacy 47.1 ml/min; Est GFR (African American) 49.6 ml/min; Est GFR (Non-African American) 42.8 ml/min; Potassium 4.4 mmol/L (3.5-5.1)
[2023-06-05] MEDS: ATENOLOL 50 MG TABLET PO SCH (08:49)
[2023-06-05] MEDS: ATORVASTATIN 40 MG TAB PO SCH (08:50)
[2023-06-05] MEDS: amLODIPine BESYLATE 5 MG TAB PO SCH (08:50)
[2023-06-05] MEDS: VENLAFAXINE HCL XR 75 MG CAPXR PO SCH (08:51)
[2023-06-05] MEDS: ASPIRIN 81 MG ECTAB PO SCH (08:51)
[2023-06-05] MEDS: LORATADINE 10 MG TAB PO SCH (08:51)
[2023-06-05] MEDS: PANTOprazole 40 MG TAB PO SCH (08:51)
[2023-06-05] MEDS: MAGNESIUM OXIDE 400 MG TAB PO SCH (08:51)
[2023-06-05] MEDS: HEPARIN SOD 5,000 UNIT/0.5 ML VIAL SQ SCH ×2 (08:52→21:51)
[2023-06-05] MEDS: methylPREDNISolone 40 MG in SYRINGE 0 ML IV SCH (08:58)
[2023-06-05] MEDS: DOCUSATE SODIUM 100 MG CAP PO SCH ×2 (08:58→21:52)
[2023-06-05] MEDS: LANTUS PER UNIT CHARGE SQ SCH ×2 (09:00→21:51)
[2023-06-05] MEDS: ACETAMINOPHEN 325 MG TAB PO PRN (09:53)
--- NOTE | 2023-06-05 14:44 | XCELERA ---
[id number]
[2023-06-06] MEDS: PIPERACILLIN/TAZOBACTAM 4.5 GM in DEXTROSE 5% MINI-B 100 ML IV SCH ×3 (00:29→17:37)
--- NOTE | 2023-06-06 07:03 | Hospitalist Progress Note ---
Date of Service June 06, 2023 Assessment & Plan (1) Pneumonia of both lower lobes: Plan: Pt is a 73 yo male with PMH of recent right MCA stroke, HTN, diabetes, HLD, and COPD presenting from [facility] due to SOB. He tested positive for COVID prior to presentation. Bibasilar bacterial pneumonia in the setting of COVID - CT showed extensive bilateral lower lobe opacities; procal 2.36 (repeat 0.96, 0.17); MRSA nares neg - ABG upon admission showed hypoxia w/o hypercapnia upon admission; repeat ABG 06/05 showed the same - blood cx negative - repeat CXR 06/02 showed improvement in opacities; repeat chest CT 06/03 showed what seemed to be a progressed LLL pneumonia - pt s/p zosyn and vanco in the ED; s/p cefepime 2g q8hr x4days; switched to zosyn 06/03 for anaerobic coverage, no antivirals given - ?COPD hx; s/p 3 days 40 mg methylprednisone BID, will decrease to daily (day 4) with the plan to continue to wean with hopeful decreasing oxygen requirement, azithromycin 250 mg daily x5 days completed 06/03 - continue duoneb q8hr, flutter valve, incentive spirometry, cough assist, hypertonic nebs, mucomyst, chest therapy for mucous clearance and bronchodilation - VFSS 06/04 did not show aspiration - pulm consulted - continue to wean oxygen as able. Pt notes that he would note want to be intubated. Hx of ischemic stroke - continue daily aspirin - will plan for discharge back to [facility] for rehab when oxygen requirement reasonable (<6L) Elevated Cr - unsure of pt's baseline Cr; 1.62 upon admission - after fluid resuscitation, pt's Cr unchanged- suspect this is around his baseline - continue to monitor Diabetes - Hgb A1c 7.8% - hold home medications - goal BS 110-150, insulin glargine to 25 units BID, CF 15, CR 4 Hx of [place] - pt has hx of stent placement - troponin peaked in 20s and has since downtrended - continue daily aspirin, atenolol, atorvastatin Hypomagnesemia - Noted on admission, Repleted - continue home magnesium oxide 400 mg daily Diet: heart healthy DVT ppx: heparin Code: DNR/DNI Dispo: PCU, plan for discharge back to [facility] once oxygen requirement/symptoms allow (2) COVID-19: (3) Hypoxia: (4) Diabetes: (5) HTN (hypertension): (6) Hyperlipidemia: (7) Hypomagnesemia: Admission and Anticipated Discharge Date Admission Date: May 30, 2023 Supervising Physician Co-Signing Physician Notes I personally examined the patient and verified ya points of history and exam, discussed case, and agree with decision making and plan documented by Dr. Childress. Patient remains on high flow oxygen, attempt to wean today by respiratory therapy unsuccessful. Patient seated in chair on exam, nasal canula in place, reduced breath sounds bilaterally. Discussed today that patient does not want intubation. Monitor closely. Subjective Pt seen at bedside this morning. No complaints. Anxious to get out of hospital. Discussed use of incentive spirometer, has not been using. Went over how to use. Review of Systems Review of Systems: As per above Physical Exam Physical Exam: Constitutional: well appearing, no acute distress HEENT: normocephalic, no conjunctival injection CV: regular rhythm, regular rate, no murmur, no LE edema Respiratory: No increased work of breathing. + Rhochi, decreased breath sounds in bases B/L. No wheezing MSK: no gross deformities noted Skin: warm, dry, no rashes Neuro: alert, oriented Results & Data Results & Data Vital Signs (Past 12 Hours) Vital Signs Temp Pulse Pulse Resp BP Pulse Ox O2 Del Method 06/05/23 20:00 High Flow Nasal Cannula 06/06/23 02:46 68 20 98 High Flow Nasal Cannula 06/06/23 02:37 36.6 C 65 20 131/86 100 High Flow Nasal Cannula 06/05/23 23:00 59 L 06/05/23 23:49 67 20 96 High Flow Nasal Cannula 06/05/23 22:28 36.4 C L 60 16 137/81 90 High Flow Nasal Cannula 06/05/23 19:37 36.5 C 60 20 121/80 89 L High Flow Nasal Cannula 06/05/23 19:19 60 20 89 L High Flow Nasal Cannula O2 Flow Rate FiO2 06/05/23 20:00 40 100 06/06/23 02:46 40 100 06/06/23 02:37 06/05/23 23:00 06/05/23 23:49 40 100 06/05/23 22:28 06/05/23 19:37 06/05/23 19:19 40 100 Resident Activity Tracking Resident Involvement: Resident Care Provided Care Provided: Adult Hospital Medicine
[2023-06-06] MEDS: SODIUM CHLOR 7% 4 ML NEB NEB SCH ×2 (07:06→20:31)
[2023-06-06] MEDS: ALBUT/IPRATROP 3MG/0.5MG NEB 3 ML VIAL NEB SCH ×3 (07:06→20:32)
[2023-06-06] MEDS: ACETYLCYSTEINE 20% INHAL SOLN 4ML ***DISPENSED BY RESP. INH SCH ×2 (07:07→20:31)
[2023-06-06 07:38] LABS: Hematocrit (blood only) 45.1 % (42.0-52.0); Hemoglobin 15.3 g/dl (14.0-18.0); Mean Corpuscular Hemoglobin 33.3 pg (25.0-34.0); Mean Corpuscular Hgb Conc 33.9 g/dL (32.0-36.0); Platelet Count 297 K/uL (130-400); RDW Coefficient of Variation 12.9 % (11.5-14.5); RDW Standard Deviation 46.2 fL (36.4-46.3); White Blood Count 12.88 K/ul (4.8-10.8)
[2023-06-06 07:52] LABS: BUN Creatinine Ratio 29.6 (10-20); Creatinine Clr Calc Pharmacy 48.3 ml/min; Est GFR (African American) 51.2 ml/min; Est GFR (Non-African American) 44.2 ml/min; Potassium 4.1 mmol/L (3.5-5.1)
--- NOTE | 2023-06-06 09:02 | Pulmonology Progress Note ---
Date of Service June 06, 2023 Assessment & Plan (1) Atelectasis of both lungs: (2) COVID-19: (3) Acute respiratory failure with hypoxia: Plan CT chest 06/03/2023 personally reviewed: Bilateral lower lobe pneumonia, more prominent in the left lower lobe Minimal patchy groundglass opacities in the right upper lobe Large hiatal hernia Minimal left-sided pleural effusion Food in the esophagus Minimal reactive mediastinal lymphadenopathy Improvement in the right lower lobe opacity/atelectasis compared to CT chest done 05/30/2023 ABG 05/30/2023: 7.38/33/65 on 15 L -- Acute on chronic hypoxic respiratory failure Multifactorial Patient is likely having aspiration pneumonia Atelectasis bilateral lower lobe. Bio fire positive for COVID-19, negative for everything else on 05/30/2023 Nasal MRSA negative Procalcitonin 0.17 2D echo 06/05/2023 did not show any signs of interatrial shunt Plan: Continue with CoughAssist for the patient, hypertonic saline as well as Mucomyst nebulized Hypoxia is likely from VQ mismatch from bilateral lower lobe atelectasis/pneumonia Recommend out of the bed to chair Continue with upper airway clearance technique. Case was discussed with RN at bedside Please note the above document was generated using voice recognition software. It may contain grammatical, syntax or spelling errors.Any formal questions or concerns about the content, text or information contained within the body of t his dictation should be directly addressed to the provider for clarification. Admission and Anticipated Discharge Date Admission Date: May 30, 2023 Subjective Patient seen and examined at bedside. No acute distress, no adverse events overnight He was saturating 91-92% on 100% FiO2, 40 L high flow Not in any distress Has been coughing up with the help of flutter valve and CoughAssist Review of Systems Review of Systems: All systems reviewed & are unremarkable except as noted in Subjective Physical Exam Physical Exam: Constitutional: No acute distress HEENT: EOMI, PERRLA Respiratory system: Decreased air entry bilaterally especially posteriorly, no wheeze, no rhonchi, positive crackles bilateral lower lobes CVS: S1-S2 positive, no murmurs or gallops Abdomen: Soft, nontender, nondistended, positive bowel sounds x4 Extremities: +2 pulses bilaterally radialis/ dorsalis pedis, no cyanosis, no e adela Neuro: Awake alert oriented x3, mild weakness of the left upper and left lower extremity Psych: Normal mood and affect G/U: Positive Martin Skin: no rashes, warm and dry Lymphatic: no cervical or axillary lymphadenopathy Results & Data Results & Data Vital Signs (Past 12 Hours) Vital Signs Temp Pulse Pulse Resp BP Pulse Ox O2 Del Method 06/06/23 07:39 36.5 C 73 21 108/73 90 High Flow Nasal Cannula 06/06/23 07:07 69 18 94 High Flow Nasal Cannula 06/06/23 02:46 68 20 98 High Flow Nasal Cannula 06/06/23 02:37 36.6 C 65 20 131/86 100 High Flow Nasal Cannula 06/05/23 23:00 59 L 06/05/23 23:49 67 20 96 High Flow Nasal Cannula 06/05/23 22:28 36.4 C L 60 16 137/81 90 High Flow Nasal Cannula O2 Flow Rate FiO2 06/06/23 07:39 40 06/06/23 07:07 40 100 06/06/23 02:46 40 100 06/06/23 02:37 06/05/23 23:00 06/05/23 23:49 40 100 06/05/23 22:28 Laboratory Results 06/06/23 06:58 06/06/23 06:58 PG Care Time/CCT Total # of Minutes Spent Total Time Spent with Patient: Total time spent is greater than 50% in coordination of care (as documented) at patient's floor/unit and/or counseling patient: Coding Level of Care Code 89333 SUB INP/OBS CARE 2/35MIN Diagnoses Atelectasis of both lungs J98.11 COVID-19 U07.1 Acute respiratory failure with hypoxia J96.01
[2023-06-06] MEDS: INSULIN ASPART PER UNIT CHARGE SC SCH ×4 (09:19→22:49)
[2023-06-06] MEDS: LANTUS PER UNIT CHARGE SQ SCH ×2 (09:20→22:48)
[2023-06-06] MEDS: DOCUSATE SODIUM 100 MG CAP PO SCH (09:32)
[2023-06-06] MEDS: ATORVASTATIN 40 MG TAB PO SCH (09:32)
[2023-06-06] MEDS: ASPIRIN 81 MG ECTAB PO SCH (09:32)
[2023-06-06] MEDS: MAGNESIUM OXIDE 400 MG TAB PO SCH (09:33)
[2023-06-06] MEDS: amLODIPine BESYLATE 5 MG TAB PO SCH (09:33)
[2023-06-06] MEDS: ATENOLOL 50 MG TABLET PO SCH (09:33)
[2023-06-06] MEDS: PANTOprazole 40 MG TAB PO SCH (09:33)
[2023-06-06] MEDS: LORATADINE 10 MG TAB PO SCH (09:34)
[2023-06-06] MEDS: methylPREDNISolone 40 MG in SYRINGE 0 ML IV SCH (09:34)
[2023-06-06] MEDS: HEPARIN SOD 5,000 UNIT/0.5 ML VIAL SQ SCH ×2 (09:35→22:48)
[2023-06-06] MEDS: VENLAFAXINE HCL XR 75 MG CAPXR PO SCH (09:38)
[2023-06-07] MEDS: PIPERACILLIN/TAZOBACTAM 4.5 GM in DEXTROSE 5% MINI-B 100 ML IV SCH ×3 (05:00→23:32)
[2023-06-07] MEDS: DOCUSATE SODIUM 100 MG CAP PO SCH ×2 (05:58→08:27)
[2023-06-07] MEDS ORDERED: Nursing to Pharmacy Communication SCH (06:15)
--- NOTE | 2023-06-07 07:01 | Hospitalist Progress Note ---
Date of Service June 07, 2023 Assessment & Plan (1) Pneumonia of both lower lobes: Plan: Pt is a 73 yo male with PMH of recent right MCA stroke, HTN, diabetes, HLD, and COPD presenting from [facility] due to SOB. He tested positive for COVID prior to presentation. Bibasilar bacterial pneumonia in the setting of COVID - CT showed extensive bilateral lower lobe opacities; procal 2.36 (repeat 0.96, 0.17); MRSA nares neg - ABG upon admission showed hypoxia w/o hypercapnia upon admission; repeat ABG 06/05 showed the same - blood cx negative - repeat CXR 06/02 showed improvement in opacities; repeat chest CT 06/03 showed what seemed to be a progressed LLL pneumonia - pt s/p zosyn and vanco in the ED; s/p cefepime 2g q8hr x4days; switched to zosyn 06/03 for anaerobic coverage- Sputum culture grew MRSA, so switched to van comycin 06/07 - ?COPD hx; s/p 3 days 40 mg methylprednisone BID, will decrease to daily (day 4) with the plan to continue to wean with hopeful decreasing oxygen requirement, azithromycin 250 mg daily x5 days completed 06/03 - continue duoneb q8hr, flutter valve, incentive spirometry, cough assist, hypertonic nebs, mucomyst, chest therapy for mucous clearance and bronchodilation - VFSS 06/04 did not show aspiration - pulm consulted - continue to wean oxygen as able. Pt notes that he would note want to be intubated. Hx of ischemic stroke - continue daily aspirin - will plan for discharge back to [facility] for rehab when oxygen requirement reasonable (<6L) Elevated Cr - unsure of pt's baseline Cr; 1.62 upon admission - after fluid resuscitation, pt's Cr unchanged- suspect this is around his baseline - continue to monitor Diabetes - Hgb A1c 7.8% - hold home medications - goal BS 110-150, insulin glargine to 25 units BID, CF 15, CR 4 Hx of [place] - pt has hx of stent placement - troponin peaked in 20s and has since downtrended - continue daily aspirin, atenolol, atorvastatin Hypomagnesemia - Noted on admission, Repleted - continue home magnesium oxide 400 mg daily Diet: heart healthy DVT ppx: heparin Code: DNR/DNI Dispo: PCU, plan for discharge back to [facility] once oxygen requirement/symptoms allow (2) COVID-19: (3) Hypoxia: (4) Diabetes: (5) HTN (hypertension): (6) Hyperlipidemia: (7) Hypomagnesemia: Admission and Anticipated Discharge Date Admission Date: May 30, 2023 Supervising Physician Co-Signing Physician Notes I personally examined the patient and verified ya points of history and exam, discussed case, and agree with decision making and plan documented by Dr. Worley son. Patient remains on high flow oxygen. He reports feeling some improvement on his breathing despite inability to wean oxygen at present. +MRSA on sputum culture, antibiotics changed to vancomycin. Hopeful to wean steroids with decreasing oxygen requirement. Updated patients at bedside. Subjective Pt seen at bedside this morning. Doing well. Overall feeling about the same as yesterday. Review of Systems Review of Systems: As per above Physical Exam Physical Exam: Constitutional: well appearing, no acute distress HEENT: normocephalic, no conjunctival injection CV: regular rhythm, regular rate, no murmur, no LE edema Respiratory: No increased work of breathing. + Rhochi, decreased breath sounds in bases B/L. No wheezing MSK: no gross deformities noted Skin: warm, dry, no rashes Neuro: alert, oriented Results & Data Results & Data Vital Signs (Past 12 Hours) Vital Signs Temp Pulse Pulse Resp BP BP Pulse Ox 06/06/23 19:10 78 06/06/23 23:00 72 06/06/23 20:00 06/07/23 03:00 36.4 C L 71 20 120/74 93 06/07/23 03:08 71 18 91 06/07/23 00:18 64 18 90 06/06/23 23:03 36.7 C 67 20 122/77 93 06/06/23 20:34 74 18 92 06/06/23 19:00 36.5 C 79 22 133/87 90 O2 Del Method O2 Flow Rate FiO2 06/06/23 19:10 06/06/23 23:00 06/06/23 20:00 Other 40 100 06/07/23 03:00 High Flow Nasal Cannula 06/07/23 03:08 High Flow Nasal Cannula 40 100 06/07/23 00:18 High Flow Nasal Cannula 40 100 06/06/23 23:03 High Flow Nasal Cannula 40 100 06/06/23 20:34 High Flow Nasal Cannula 40 100 06/06/23 19:00 High Flow Nasal Cannula Resident Activity Tracking Resident Involvement: Resident Care Provided Care Provided: Adult Hospital Medicine
[2023-06-07] MEDS: ACETYLCYSTEINE 20% INHAL SOLN 4ML ***DISPENSED BY RESP. INH SCH ×2 (07:05→19:44)
[2023-06-07] MEDS: ALBUT/IPRATROP 3MG/0.5MG NEB 3 ML VIAL NEB SCH ×2 (07:06→19:44)
[2023-06-07] MEDS: SODIUM CHLOR 7% 4 ML NEB NEB SCH ×2 (07:06→19:44)
[2023-06-07 08:04] LABS: Basophils # (auto) 0.02 K/uL (0.00-0.20); Basophils % (auto) 0.2 %; Eosinophils # (auto) 0.08 K/uL (0.00-0.50); Eosinophils % (auto) 0.6 %; Hematocrit (blood only) 41.6 % (42.0-52.0); Hemoglobin 14.2 g/dl (14.0-18.0); Immature Granulocytes # (auto) 0.17 K/uL (0.01-0.20); Immature Granulocytes % (auto) 1.3 %; Lymphocytes # (auto) 1.78 K/uL (1.20-3.40); Lymphocytes % (auto) 13.6 %; Mean Corpuscular Hemoglobin 33.2 pg (25.0-34.0); Mean Corpuscular Hgb Conc 34.1 g/dL (32.0-36.0); Mean Corpuscular Volume 97.2 fL (80.0-100.0); Mean Platelet Volume 10.7 fL (9.4-12.4); Monocytes # (auto) 1.06 K/uL (0.11-0.59); Monocytes % (auto) 8.1 %; Neutrophils # (auto) 9.99 K/uL (1.40-6.50); Neutrophils % (auto) 76.2 %; Platelet Count 356 K/uL (130-400); RDW Coefficient of Variation 12.6 % (11.5-14.5); RDW Standard Deviation 45.1 fL (36.4-46.3); Red Blood Count 4.28 M/uL (4.70-6.10)
[2023-06-07] MEDS: methylPREDNISolone 40 MG in SYRINGE 0 ML IV SCH (08:25)
[2023-06-07] MEDS: amLODIPine BESYLATE 5 MG TAB PO SCH (08:26)
[2023-06-07] MEDS: HEPARIN SOD 5,000 UNIT/0.5 ML VIAL SQ SCH ×2 (08:26→23:29)
[2023-06-07] MEDS: ATENOLOL 50 MG TABLET PO SCH (08:27)
[2023-06-07] MEDS: MAGNESIUM OXIDE 400 MG TAB PO SCH (08:27)
[2023-06-07] MEDS: ASPIRIN 81 MG ECTAB PO SCH (08:27)
[2023-06-07] MEDS: ATORVASTATIN 40 MG TAB PO SCH (08:28)
[2023-06-07] MEDS: LORATADINE 10 MG TAB PO SCH (08:28)
[2023-06-07] MEDS: VENLAFAXINE HCL XR 75 MG CAPXR PO SCH (08:28)
[2023-06-07] MEDS: PANTOprazole 40 MG TAB PO SCH (08:28)
[2023-06-07 08:33] LABS: Albumin Globulin Ratio 0.9 (0.9-2); Albumin Level 3.1 gm/dl (3.4-5.0); BUN Creatinine Ratio 31.1 (10-20); Calcium 9.1 mg/dl (8.6-10.3); Creatinine Clr Calc Pharmacy 45.9 ml/min; Est GFR (African American) 47.8 ml/min; Est GFR (Non-African American) 41.2 ml/min; Globulin 3.4 gm/dl (2.5-4.0); Magnesium 2.1 mg/dl (1.7-2.4); Potassium 4.2 mmol/L (3.5-5.1); Total Protein 6.5 gm/dl (6.0-8.3)
[2023-06-07] MEDS: INSULIN ASPART PER UNIT CHARGE SC SCH ×3 (08:33→18:15)
--- NOTE | 2023-06-07 08:33 | XRay Report ---
SINGLE VIEW CHEST CLINICAL HISTORY: Follow-up right bibasilar consolidation. FINDINGS: An AP, portable, upright chest radiograph is compared to study dated 06/05/2023 and correlat ed with chest CT dated 06/03/2023. The examination is degraded by portable technique and apical lordot ic positioning. The heart is enlarged noting atherosclerotic calcification of the thoracic aorta. The pulmonary vasculature is noncongested. There is bibasilar consolidation, left greater than right wit h trace pleural effusions. No pneumothorax is seen. The skeletal structures are osteopenic. The bony thorax is grossly intact. IMPRESSION: 1. Cardiomegaly without radiographic evidence of congestive failure. 2. Bibasilar consolidation and trace pleural effusions. This is similar to previous. ACT 112: Negative or not required by law. Electronically signed by: Dax Stevens M.D. 06/07/2023 8:31 AM
[2023-06-07] MEDS: LANTUS PER UNIT CHARGE SQ SCH (08:34)
--- NOTE | 2023-06-07 12:58 | Pulmonology Progress Note ---
Date of Service June 07, 2023 Assessment & Plan (1) Atelectasis of both lungs: (2) COVID-19: (3) Acute respiratory failure with hypoxia: Plan CT chest 06/03/2023 personally reviewed: Bilateral lower lobe pneumonia, more prominent in the left lower lobe Minimal patchy groundglass opacities in the right upper lobe Large hiatal hernia Minimal left-sided pleural effusion Food in the esophagus Minimal reactive mediastinal lymphadenopathy Improvement in the right lower lobe opacity/atelectasis compared to CT chest done 05/30/2023 ABG 05/30/2023: 7.38/33/65 on 15 L -- Acute on chronic hypoxic respiratory failure Multifactorial Patient is likely having aspiration pneumonia Atelectasis bilateral lower lobe. Bio fire positive for COVID-19, negative for everything else on 05/30/2023 Nasal MRSA negative Procalcitonin 0.17 2D echo 06/05/2023 did not show any signs of interatrial shunt Sputum culture growing staph which is resistant to everything except for vancomycin Plan: Change antibiotic to vancomycin. Continue with CoughAssist for the patient, hypertonic saline as well as Mucomyst nebulized Hypoxia is likely from VQ mismatch from bilateral lower lobe atelectasis/pneumonia Recommend out of the bed to chair Continue with upper airway clearance technique. Case was discussed with RN at bedside Please note the above document was generated using voice recognition software. It may contain grammatical, syntax or spelling errors.Any formal questions or concerns about the content, text or information contained within the body of this dictation should be directly addressed to the provider for clarification. Admission and Anticipated Discharge Date Admission Date: May 30, 2023 Subjective Patient seen and examined at bedside. No acute distress, no adverse events overnight He was saturating 85-87% on 100% FiO2, 40 L He was sitting on a chair. Coughing up and bringing up phlegm Review of Systems Review of Systems: All systems reviewed & are unremarkable except as noted in Subjective Physical Exam Physical Exam: Constitutional: No acute distress HEENT: EOMI, PERRLA Respiratory system: Decreased air entry bilaterally especially posteriorly, no wheeze, no rhonchi, positive crackles bilateral lower lobes CVS: S1-S2 positive, no murmurs or gallops Abdomen: Soft, nontender, nondistended, positive bowel sounds x4 Extremities: +2 pulses bilaterally radialis/ dorsalis pedis, no cyanosis, no edema Neuro: Awake alert oriented x3, mild weakness of the left upper and left lower extremity Psych: Normal mood and affect G/U: Positive Martin Skin: no rashes, warm and dry Lymphatic: no cervical or axillary lymphadenopathy Results & Data Results & Data Vital Signs (Past 12 Hours) Vital Signs Temp Pulse Pulse Resp BP BP Pulse Ox 06/07/23 10:49 36.5 C 63 18 137/84 84 L 06/07/23 09:00 06/07/23 07:50 36.4 C L 63 20 110/70 95 06/07/23 07:34 67 06/07/23 07:09 78 22 89 L 06/07/23 03:00 36.4 C L 71 20 120/74 93 06/07/23 03:08 71 18 91 O2 Del Method O2 Flow Rate FiO2 06/07/23 10:49 High Flow Nasal Cannula 40 06/07/23 09:00 High Flow Nasal Cannula 06/07/23 07:50 High Flow Nasal Cannula 40 06/07/23 07:34 06/07/23 07:09 High Flow Nasal Cannula 40 100 06/07/23 03:00 High Flow Nasal Cannula 06/07/23 03:08 High Flow Nasal Cannula 40 100 Laboratory Results 06/07/23 07:42 06/07/23 07:42 PG Care Time/CCT Total # of Minutes Spent Total Time Spent with Patient: Total time spent is greater than 50% in coordination of care (as documented) at patient's floor/unit and/or counseling patient: Coding Level of Care Code 17216 SUB INP/OBS CARE 2/35MIN Diagnoses Atelectasis of both lungs J98.11 COVID-19 U07.1 Acute respiratory failure with hypoxia J96.01
[2023-06-07] MEDS ORDERED: VANCOMYCIN CONSULT ACTIVE PRN (13:04)
[2023-06-07] MEDS ORDERED: VANCOMYCIN HCL 2,250 MG in SODIUM CHLORIDE 0.9% 500 ML IV ONE (13:30)
--- NOTE | 2023-06-07 16:39 | Pharmacy Report ---
Pharmacy PK ABX Note - Date of Service June 07, 2023 - Assessment and Plan Assessment 73 year old M receiving vancomycin and zosyn for treatment of pneumonia. MRSA nasal (-). Blood and urine cultures (-). 06/05 sputum culture (+) CoNS resistant to methicillin, bactrim, and clindamycin. Renal function stable (SCr ~ 1.5 since admission). Day #1 of antimicrobial therapy. Plan Vancomycin * Loading dose: 2250 mg IV x 1 * Maintenance dose: 1250 mg IV every 24 hours * Regimen is predicted to achieve target AUC/LEIGHTON of 400-600 mg/L.hr * Will obtain a level around steady state, or sooner if clinically indicated Pharmacy will continue to follow and will adjust dose/frequency as necessary. Thank you. Pharmacy has transitioned to AUC monitoring for vancomycin. AUC/LEIGHTON is the preferred PK/PD target and is associated with decreased risk of nephrotoxicity compared to traditional trough targets.
[2023-06-08] MEDS: DOCUSATE SODIUM 100 MG CAP PO SCH ×3 (04:18→20:23)
[2023-06-08] MEDS: VANCOMYCIN HCL 1,250 MG in SODIUM CHLORIDE 0.9% 250 ML IV SCH (04:20)
[2023-06-08] MEDS: PIPERACILLIN/TAZOBACTAM 4.5 GM in DEXTROSE 5% MINI-B 100 ML IV SCH ×3 (05:48→20:19)
--- NOTE | 2023-06-08 07:00 | Hospitalist Progress Note ---
Date of Service June 08, 2023 Assessment & Plan (1) Pneumonia of both lower lobes: Plan: Colby Alcaraz is a 73 year-old male with PMH of recent right MCA stroke, HTN, diabetes, HLD, and COPD presenting from [facility] due to SOB. He tested positive for COVID prior to presentation. Bibasilar bacterial pneumonia in the setting of COVID -CT showed extensive bilateral lower lobe opacities; procal 2.36 (repeat 0.96, 0.17); MRSA nares neg -ABG upon admission showed hypoxia w/o hypercapnia upon admission; repeat ABG 06/05 showed the same -Blood cx negative -repeat CXR 06/02 showed improvement in opacities; repeat chest CT 06/03 showed what seemed to be a progressed LLL pneumonia -pt s/p zosyn and vanco in the ED; s/p cefepime 2g q8hr x4days; switched to zosyn 06/03 for anaerobic coverage- Sputum culture grew MRSA, so switched to vancomycin 06/07 -Continue Vancomycin, can consider d/c Zosyn in the next few days if improving -?COPD hx; s/p 3 days 40 mg methylprednisone BID, will decrease to daily (day 4) with the plan to continue to wean with hopeful decreasing oxygen requirement, azithromycin 250 mg daily x5 days completed 06/03 -continue duoneb q8hr, flutter valve, incentive spirometry, cough assist, hypertonic nebs, mucomyst, chest therapy for mucous clearance and bronchodilation -VFSS 06/04 did not show aspiration -Pulmonology consulted, appreciate recommendations Hx of ischemic stroke -continue daily aspirin -will plan for discharge back to [facility] for rehab when oxygen requirement reasonable (<6L) Elevated Cr -unsure of pt's baseline Cr; 1.62 upon admission -after fluid resuscitation, pt's Cr unchanged- suspect this is around his baseline -continue to monitor Diabetes -Hgb A1c 7.8% -hold home medications -goal BS 110-150, insulin glargine to 25 units BID, CF 15, CR 4 Hx of [place] -pt has hx of stent placement -troponin peaked in 20s and has since downtrended -continue daily aspirin, atenolol, atorvastatin Hypomagnesemia -Noted on admission, Repleted -continue home magnesium oxide 400 mg daily Diet: heart healthy DVT ppx: heparin Code: DNR/DNI Dispo: PCU, plan for discharge back to [facility] once oxygen requirement/symptoms allow (2) COVID-19: (3) Hypoxia: (4) Diabetes: (5) HTN (hypertension): (6) Hyperlipidemia: (7) Hypomagnesemia: Admission and Anticipated Discharge Date Admission Date: May 30, 2023 Supervising Physician Co-Signing Physician Notes I personally examined the patient and verified all ya points of history and exam, discussed case, and agree with decision making with Dr Stafford Feels "fantastic" notes that he probably looks better than yesterday. Vitals noted, in general he is awake and alert pleasant no distress. Breathing unlabored no accessory muscle use good effort. Skin shows no rashes no pallor or icterus. Neuro without focal deficits. Pneumonia with persistent and severe hypoxia/high oxygen requirementsputum surprisingly grew resistant staph, in spite of negative MRSA narisI suspect this is probably the problem, is only been on vancomycin since yesterday. It is also possible he is subclinically aspirating some given what the is seen at home, and what nursing is seems some. Does not appear to be severe enough to require a modified diet over speech ongoing treatment, but I do wonder if it contributes a little to his hypoxia. Continue vancomycin, hopefully can drop Zosyn tomorrow. Continue steroids. Continue supportive care. otehrwise as above Subjective Patient seen and examined at bedside. Patient was resting at time of encounter, awoke easily. He denies any current pain. Spoke with RN, notes that patient choked on a piece of cantaloupe yesterday and has not had significant PO intake. He requests a Coke. Review of Systems Review of Systems: As per above Physical Exam Constitutional: no acute distress Eyes: + anicteric sclerae; no conjunctival abnormality ENMT: Ears: no external ear abnormality Nose: no external nose abnormality Moist mucous membranes. HFNC in place. Respiratory: + cough; does not use accessory muscles Auscultation: + crackles Cardiovascular: Rate/Rhythm: regular rate and regular rhythm No lower extremity edema appreciated bilaterally Gastrointestinal (Abdomen): Inspection/Auscultation: abdomen not distended Percussion/Palpation: abdomen soft; abdomen nontender and no hepatosplenomegaly Skin: no rashes, warm and dry Psychiatric: Appears fatigued, verbal responses are usually limited to a few words Results & Data Results & Data Vital Signs (Past 12 Hours) Vital Signs Temp Pulse Resp BP Pulse Ox O2 Del Method O2 Flow Rate 06/08/23 03:45 36.7 C 65 17 96/64 L 96 High Flow Nasal Cannula 30 06/08/23 03:36 63 20 94 High Flow Nasal Cannula 30 06/07/23 22:51 65 22 94 High Flow Nasal Cannula 30 06/07/23 22:41 36.7 C 70 17 129/82 95 High Flow Nasal Cannula 30 06/07/23 19:45 73 20 92 High Flow Nasal Cannula 30 06/07/23 19:25 36.6 C 74 18 126/77 99 High Flow Nasal Cannula 30 FiO2 06/08/23 03:45 65 06/08/23 03:36 65 06/07/23 22:51 75 06/07/23 22:41 75 06/07/23 19:45 75 06/07/23 19:25 75 Resident Activity Tracking Resident Involvement: Resident Care Provided Care Provided: Adult Hospital Medicine
[2023-06-08] MEDS: SODIUM CHLOR 7% 4 ML NEB NEB SCH ×2 (07:24→19:15)
[2023-06-08] MEDS: ACETYLCYSTEINE 20% INHAL SOLN 4ML ***DISPENSED BY RESP. INH SCH ×2 (07:24→19:15)
[2023-06-08] MEDS: ALBUT/IPRATROP 3MG/0.5MG NEB 3 ML VIAL NEB SCH ×4 (07:25→19:15)
[2023-06-08 08:39] LABS: Basophils # (auto) 0.02 K/uL (0.00-0.20); Basophils % (auto) 0.2 %; Eosinophils # (auto) 0.18 K/uL (0.00-0.50); Eosinophils % (auto) 1.6 %; Hematocrit (blood only) 40.8 % (42.0-52.0); Hemoglobin 13.9 g/dl (14.0-18.0); Immature Granulocytes # (auto) 0.17 K/uL (0.01-0.20); Immature Granulocytes % (auto) 1.5 %; Lymphocytes # (auto) 1.48 K/uL (1.20-3.40); Lymphocytes % (auto) 12.8 %; Mean Corpuscular Hemoglobin 33.5 pg (25.0-34.0); Mean Corpuscular Hgb Conc 34.1 g/dL (32.0-36.0); Mean Corpuscular Volume 98.3 fL (80.0-100.0); Mean Platelet Volume 10.4 fL (9.4-12.4); Monocytes # (auto) 1.01 K/uL (0.11-0.59); Monocytes % (auto) 8.7 %; Neutrophils # (auto) 8.69 K/uL (1.40-6.50); Neutrophils % (auto) 75.2 %; Platelet Count 326 K/uL (130-400); RDW Coefficient of Variation 12.9 % (11.5-14.5); RDW Standard Deviation 46.7 fL (36.4-46.3); Red Blood Count 4.15 M/uL (4.70-6.10); White Blood Count 11.55 K/ul (4.8-10.8)
[2023-06-08 09:05] LABS: Albumin Globulin Ratio 0.9 (0.9-2); Albumin Level 2.9 gm/dl (3.4-5.0); BUN Creatinine Ratio 25.7 (10-20); Bilirubin,Total 0.9 mg/dl (0.2-1.0); Calcium 8.7 mg/dl (8.6-10.3); Creatinine Clr Calc Pharmacy 42.2 ml/min; Est GFR (African American) 43.2 ml/min; Est GFR (Non-African American) 37.3 ml/min; Globulin 3.2 gm/dl (2.5-4.0); Magnesium 2.1 mg/dl (1.7-2.4); Potassium 4.5 mmol/L (3.5-5.1); Total Protein 6.1 gm/dl (6.0-8.3)
--- NOTE | 2023-06-08 09:24 | Pulmonology Progress Note ---
Date of Service June 08, 2023 Assessment & Plan (1) Atelectasis of both lungs: (2) COVID-19: (3) Acute respiratory failure with hypoxia: Plan CT chest 06/03/2023 personally reviewed: Bilateral lower lobe pneumonia, more prominent in the left lower lobe Minimal patchy groundglass opacities in the right upper lobe Large hiatal hernia Minimal left-sided pleural effusion Food in the esophagus Minimal reactive mediastinal lymphadenopathy Improvement in the right lower lobe opacity/atelectasis compared to CT chest done 05/30/2023 ABG 05/30/2023: 7.38/33/65 on 15 L -- Acute on chronic hypoxic respiratory failure Multifactorial Patient is likely having aspiration pneumonia Atelectasis bilateral lower lobe. Bio fire positive for COVID-19, negative for everything else on 05/30/2023 Nasal MRSA negative Procalcitonin 0.17 2D echo 06/05/2023 did not show any signs of interatrial shunt Sputum culture growing staph which is resistant to everything except for vancomycin Plan: Continue to titrate down FiO2 as able. Currently on 35L/80%. Remains on vancomycin. Continue with CoughAssist for the patient, hypertonic saline as well as Mucomyst nebulized Hypoxia is likely from VQ mismatch from bilateral lower lobe atelectasis/pneumonia Would again encourage patient to be OOB to chair if able. Please note the above document was generated using voice recognition software. It may contain grammatical, syntax or spelling errors.Any formal questions or concerns about the content, text or information contained within the body of this dictation should be directly addressed to the provider for clarification. Admission and Anticipated Discharge Date Admission Date: May 30, 2023 Subjective Patient was seen and evaluated by myself. He continues to complain of a productive cough. He denies complaints of chest pain, palpitations, or breathing difficulty. He has not been out of bed to chair at this point. Review of Systems Review of Systems: Unchanged from priors. Physical Exam Physical Exam: VITAL SIGNS - Vital signs and nursing notes were reviewed. GENERAL - 73-year-old male appearing his stated age who is in no acute distress. Communicates well with provider and answers questions appropriately. LUNGS - Diminished breath sounds with bibasilar rales appreciated. CARDIAC - RRR with S1/S2. No murmur, rubs, or gallops appreciated. ABDOMEN - BS normoactive all four quadrants. No tenderness, palpable masses, or ascites noted. EXTREMITIES - No peripheral cyanosis. No pretibial edema present. +3/5 radial palpated throughout. PSYCH - A&Ox3 and cooperates fully with examiner. Pt is very pleasant and interacts well with examiner. Skin: no rashes, warm and dry Lymphatic: no cervical or axillary lymphadenopathy Results & Data Results & Data Vital Signs (Past 12 Hours) Vital Signs Temp Pulse Resp BP Pulse Ox O2 Del Method O2 Flow Rate 06/08/23 07:38 36.3 C L 70 22 111/71 87 L Nasal Cannula, High Flow Nasal Cannula 30 06/08/23 07:27 68 22 90 High Flow Nasal Cannula 30 06/08/23 03:45 36.7 C 65 17 96/64 L 96 High Flow Nasal Cannula 30 06/08/23 03:36 63 20 94 High Flow Nasal Cannula 30 06/07/23 22:51 65 22 94 High Flow Nasal Cannula 30 06/07/23 22:41 36.7 C 70 17 129/82 95 High Flow Nasal Cannula 30 FiO2 06/08/23 07:38 06/08/23 07:27 65 06/08/23 03:45 65 06/08/23 03:36 65 06/07/23 22:51 75 06/07/23 22:41 75 PG Care Time/CCT Total # of Minutes Spent Total Time Spent with Patient: Total time spent is greater than 50% in coordination of care (as documented) at patient's floor/unit and/or counseling patient: Coding Level of Care Code 72600 SUB INP/OBS CARE 2/35MIN Diagnoses Atelectasis of both lungs J98.11 COVID-19 U07.1 Acute respiratory failure with hypoxia J96.01
[2023-06-08] MEDS: HEPARIN SOD 5,000 UNIT/0.5 ML VIAL SQ SCH ×2 (09:32→20:25)
[2023-06-08] MEDS: amLODIPine BESYLATE 5 MG TAB PO SCH (09:32)
[2023-06-08] MEDS: PANTOprazole 40 MG TAB PO SCH (09:33)
[2023-06-08] MEDS: ASPIRIN 81 MG ECTAB PO SCH (09:34)
[2023-06-08] MEDS: VENLAFAXINE HCL XR 75 MG CAPXR PO SCH (09:34)
[2023-06-08] MEDS: MAGNESIUM OXIDE 400 MG TAB PO SCH (09:34)
[2023-06-08] MEDS: ATENOLOL 50 MG TABLET PO SCH (09:34)
[2023-06-08] MEDS: LORATADINE 10 MG TAB PO SCH (09:34)
[2023-06-08] MEDS: ATORVASTATIN 40 MG TAB PO SCH (09:35)
[2023-06-08] MEDS: methylPREDNISolone 40 MG in SYRINGE 0 ML IV SCH (09:39)
[2023-06-08] MEDS: INSULIN ASPART PER UNIT CHARGE SC SCH ×5 (09:40→20:48)
[2023-06-08] MEDS: LANTUS PER UNIT CHARGE SQ SCH ×3 (09:41→20:48)
--- NOTE | 2023-06-08 18:09 | Billing Data ---
Date of Service June 08, 2023 Coding Level of Care Code 40213 SUB INP/OBS CARE MIN
[2023-06-09] MEDS: PIPERACILLIN/TAZOBACTAM 4.5 GM in DEXTROSE 5% MINI-B 100 ML IV SCH (02:23)
[2023-06-09] MEDS: VANCOMYCIN HCL 1,250 MG in SODIUM CHLORIDE 0.9% 250 ML IV SCH (04:15)
[2023-06-09] MEDS: SODIUM CHLOR 7% 4 ML NEB NEB SCH ×2 (07:09→19:07)
[2023-06-09] MEDS: ALBUT/IPRATROP 3MG/0.5MG NEB 3 ML VIAL NEB SCH ×3 (07:09→19:08)
[2023-06-09] MEDS: ACETYLCYSTEINE 20% INHAL SOLN 4ML ***DISPENSED BY RESP. INH SCH ×2 (07:09→19:07)
--- NOTE | 2023-06-09 07:21 | Hospitalist Progress Note ---
Date of Service June 09, 2023 Assessment & Plan (1) Pneumonia of both lower lobes: Plan: Colby Alcaraz is a 73 year-old male with PMH of recent right MCA stroke, HTN, diabetes, HLD, and COPD presenting from [facility] due to SOB. He tested positive for COVID prior to presentation. Bibasilar bacterial pneumonia in the setting of COVID -CT showed extensive bilateral lower lobe opacities; procal 2.36 (repeat 0.96, 0.17); MRSA nares neg -ABG upon admission showed hypoxia w/o hypercapnia upon admission; repeat ABG 06/05 showed the same -Blood cx negative -repeat CXR 06/02 showed improvement in opacities; repeat chest CT 06/03 showed what seemed to be a progressed LLL pneumonia -pt s/p zosyn and vanco in the ED; s/p cefepime 2g q8hr x4days; switched to zosyn 06/03 for anaerobic coverage- Sputum culture grew MRSA, so switched to vancomycin 06/07 -Continue Vancomycin, d/c Zosyn today 06/09 -Currently on 8L NC this afternoon -?COPD hx; s/p 3 days 40 mg methylprednisone BID, will decrease to daily (day 4) with the plan to continue to wean with hopeful decreasing oxygen requirement, azithromycin 250 mg daily x5 days completed 06/03 -continue duoneb q8hr, flutter valve, incentive spirometry, cough assist, hypertonic nebs, mucomyst, chest therapy for mucous clearance and bronchodilation -VFSS 06/04 did not show aspiration -Pulmonology consulted, appreciate recommendations Hx of ischemic stroke -continue daily aspirin -will plan for discharge back to [facility] for rehab when oxygen requirement reasonable (<6L) Elevated Cr -unsure of pt's baseline Cr; 1.62 upon admission -after fluid resuscitation, pt's Cr unchanged- suspect this is around his baseline -continue to monitor Diabetes -Hgb A1c 7.8% -hold home medications -goal BS 110-150, insulin glargine to 25 units BID, CF 15, CR 4 Hx of [place] -pt has hx of stent placement -troponin peaked in 20s and has since downtrended -continue daily aspirin, atenolol, atorvastatin Hypomagnesemia -Noted on admission, Repleted -continue home magnesium oxide 400 mg daily Diet: heart healthy DVT ppx: heparin Code: DNR/DNI Dispo: PCU, plan for discharge back to [facility] once oxygen requirement/symptoms allow (2) COVID-19: (3) Hypoxia: (4) Diabetes: (5) HTN (hypertension): (6) Hyperlipidemia: (7) Hypomagnesemia: Admission and Anticipated Discharge Date Admission Date: May 30, 2023 Supervising Physician Co-Signing Physician Notes I personally examined the patient and verified all ya points of history and exam, discussed case, and agree with decision making with Dr Stafford No complaints, endorses that he is feeling better. Vitals noted, in general he is awake and alert pleasant no distress. Breathing unlabored no accessory muscle use good effort. Somewhat diminished breath sounds bibasilar, but overall no rales rhonchi or wheezes moderate air entry good effort no accessory muscle use. Skin shows no rashes no pallor or icterus. Neuro without focal deficits. Pneumonia with persistent and severe hypoxia/high oxygen requirementsputum surprisingly grew resistant staph, in spite of negative MRSA narisI suspect this is probably the problem, is only been on vancomycin since yesterday. It is also possible he is subclinically aspirating some given what the is seen at home, and what nursing is seems some. Does not appear to be severe enough to require a modified diet over speech ongoing treatment, but I do wonder if it contributes a little to his hypoxia. Continue vancomycin, stop Zosyn. Continue steroids. Continue supportive care. Oxygenation improving quite nicely. Hopefully back to rehab soon. Otherwise as above Subjective Patient seen and examined at bedside. States he is feeling "not bad." Denies any current pain. Review of Systems Review of Systems: As per above Physical Exam Constitutional: no acute distress Eyes: + anicteric sclerae; no conjunctival abnormality ENMT: Ears: no external ear abnormality Nose: no external nose abnormality Respiratory: + cough; does not use accessory muscles Diminished lung sounds Cardiovascular: Rate/Rhythm: regular rate and regular rhythm Gastrointestinal (Abdomen): Inspection/Auscultation: abdomen not distended Percussion/Palpation: abdomen soft; abdomen nontender and no hepatosplenomegaly Skin: no rashes, warm and dry Results & Data Results & Data Vital Signs (Past 12 Hours) Vital Signs Temp Pulse Pulse Resp BP Pulse Ox O2 Del Method 06/09/23 07:09 58 L 18 96 High Flow Nasal Cannula 06/09/23 06:19 60 18 94 High Flow Nasal Cannula 06/09/23 05:38 91 High Flow Nasal Cannula 06/09/23 03:05 93 High Flow Nasal Cannula 06/09/23 02:25 36.6 C 63 20 115/74 97 High Flow Nasal Cannula 06/08/23 23:21 36.6 C 66 18 122/73 99 High Flow Nasal Cannula 06/08/23 23:13 69 94 High Flow Nasal Cannula 06/08/23 22:00 72 06/08/23 20:00 High Flow Nasal Cannula O2 Flow Rate FiO2 06/09/23 07:09 30 50 06/09/23 06:19 30 50 06/09/23 05:38 30 60 06/09/23 03:05 30 50 06/09/23 02:25 30 60 06/08/23 23:21 06/08/23 23:13 30 60 06/08/23 22:00 06/08/23 20:00 30 Resident Activity Tracking Resident Involvement: Resident Care Provided Care Provided: Adult Hospital Medicine
[2023-06-09 07:50] LABS: Basophils # (auto) 0.02 K/uL (0.00-0.20); Basophils % (auto) 0.2 %; Eosinophils # (auto) 0.21 K/uL (0.00-0.50); Eosinophils % (auto) 2.3 %; Hematocrit (blood only) 41.4 % (42.0-52.0); Hemoglobin 13.8 g/dl (14.0-18.0); Immature Granulocytes # (auto) 0.13 K/uL (0.01-0.20); Immature Granulocytes % (auto) 1.4 %; Lymphocytes # (auto) 1.55 K/uL (1.20-3.40); Lymphocytes % (auto) 16.9 %; Mean Corpuscular Hemoglobin 33.2 pg (25.0-34.0); Mean Corpuscular Hgb Conc 33.3 g/dL (32.0-36.0); Mean Corpuscular Volume 99.5 fL (80.0-100.0); Mean Platelet Volume 10.5 fL (9.4-12.4); Monocytes # (auto) 1.04 K/uL (0.11-0.59); Monocytes % (auto) 11.3 %; Neutrophils # (auto) 6.22 K/uL (1.40-6.50); Neutrophils % (auto) 67.9 %; Platelet Count 336 K/uL (130-400); RDW Coefficient of Variation 12.8 % (11.5-14.5); RDW Standard Deviation 47.7 fL (36.4-46.3); Red Blood Count 4.16 M/uL (4.70-6.10); White Blood Count 9.17 K/ul (4.8-10.8)
[2023-06-09 08:07] LABS: BUN Creatinine Ratio 23.4 (10-20); Calcium 8.8 mg/dl (8.6-10.3); Creatinine Clr Calc Pharmacy 43.4 ml/min; Est GFR (African American) 44.4 ml/min; Est GFR (Non-African American) 38.3 ml/min; Potassium 4.7 mmol/L (3.5-5.1)
[2023-06-09] MEDS: VENLAFAXINE HCL XR 75 MG CAPXR PO SCH (08:51)
[2023-06-09] MEDS: ASPIRIN 81 MG ECTAB PO SCH (08:51)
[2023-06-09] MEDS: ATENOLOL 50 MG TABLET PO SCH (08:51)
[2023-06-09] MEDS: amLODIPine BESYLATE 5 MG TAB PO SCH (08:51)
[2023-06-09] MEDS: ATORVASTATIN 40 MG TAB PO SCH (08:51)
[2023-06-09] MEDS: LORATADINE 10 MG TAB PO SCH (08:51)
[2023-06-09] MEDS: HEPARIN SOD 5,000 UNIT/0.5 ML VIAL SQ SCH ×2 (08:52→19:39)
[2023-06-09] MEDS: PANTOprazole 40 MG TAB PO SCH (08:52)
[2023-06-09] MEDS: MAGNESIUM OXIDE 400 MG TAB PO SCH (08:52)
[2023-06-09] MEDS: DOCUSATE SODIUM 100 MG CAP PO SCH ×2 (08:52→19:39)
[2023-06-09] MEDS: INSULIN ASPART PER UNIT CHARGE SC SCH ×4 (09:04→19:49)
[2023-06-09] MEDS: LANTUS PER UNIT CHARGE SQ SCH ×2 (09:04→19:50)
[2023-06-09] MEDS: methylPREDNISolone 40 MG in SYRINGE 0 ML IV SCH (09:04)
--- NOTE | 2023-06-09 12:32 | Pulmonology Progress Note ---
Date of Service June 09, 2023 Assessment & Plan (1) Atelectasis of both lungs: (2) COVID-19: (3) Acute respiratory failure with hypoxia: Plan CT chest 06/03/2023 personally reviewed: Bilateral lower lobe pneumonia, more prominent in the left lower lobe Minimal patchy groundglass opacities in the right upper lobe Large hiatal hernia Minimal left-sided pleural effusion Food in the esophagus Minimal reactive mediastinal lymphadenopathy Improvement in the right lower lobe opacity/atelectasis compared to CT chest done 05/30/2023 ABG 05/30/2023: 7.38/33/65 on 15 L -- Acute on chronic hypoxic respiratory failure Multifactorial Patient is likely having aspiration pneumonia Atelectasis bilateral lower lobe. Bio fire positive for COVID-19, negative for everything else on 05/30/2023 Nasal MRSA negative Procalcitonin 0.17 2D echo 06/05/2023 did not show any signs of interatrial shunt Sputum culture growing staph which is resistant to everything except for vancomycin Plan: Patient looks better today. O2 requirement has improved. Continue to titrate down FiO2 as able. Currently on 30L/45%. Remains on vancomycin. Continue with CoughAssist for the patient, hypertonic saline as well as Mucomyst nebulized Hypoxia is likely from VQ mismatch from bilateral lower lobe atelectasis/pneumonia Would again encourage patient to be OOB to chair if able. Thank you for allowing us to participate in the care of this patient. Pulmonary medicine will sign off at this time. Please feel free to reach out to us directly for any questions. Please note the above document was generated using voice recognition software. It may contain grammatical, syntax or spelling errors.Any formal questions or concerns about the content, text or information contained within the body of this dictation should be directly addressed to the provider for clarification. Admission and Anticipated Discharge Date Admission Date: May 30, 2023 Subjective Patient was seen and evaluated today. He is more alert and interactive. He states that his breathing is improved. Review of Systems Review of Systems: Unchanged from priors. Physical Exam Physical Exam: VITAL SIGNS - Vital signs and nursing notes were reviewed. GENERAL - 73-year-old male appearing his stated age who is in no acute distress. Communicates well with provider and answers questions appropriately. LUNGS - Diminished breath sounds with bibasilar rales appreciated. CARDIAC - RRR with S1/S2. No murmur, rubs, or gallops appreciated. ABDOMEN - BS normoactive all four quadrants. No tenderness, palpable masses, or ascites noted. Skin: no rashes, warm and dry Lymphatic: no cervical or axillary lymphadenopathy Results & Data Results & Data Vital Signs (Past 12 Hours) Vital Signs Temp Pulse Resp BP Pulse Ox O2 Del Method O2 Flow Rate 06/09/23 12:22 36.6 C 61 19 117/75 99 High Flow Nasal Cannula 06/09/23 11:12 60 18 99 High Flow Nasal Cannula 30 06/09/23 08:00 High Flow Nasal Cannula 06/09/23 07:52 36.7 C 60 17 115/72 96 Room Air 06/09/23 07:09 58 L 18 96 High Flow Nasal Cannula 30 06/09/23 06:19 60 18 94 High Flow Nasal Cannula 30 06/09/23 05:38 91 High Flow Nasal Cannula 30 06/09/23 03:05 93 High Flow Nasal Cannula 30 06/09/23 02:25 36.6 C 63 20 115/74 97 High Flow Nasal Cannula 30 FiO2 06/09/23 12:22 06/09/23 11:12 40 06/09/23 08:00 06/09/23 07:52 06/09/23 07:09 50 06/09/23 06:19 50 06/09/23 05:38 60 06/09/23 03:05 50 06/09/23 02:25 60 Laboratory Results 06/09/23 06:49 06/09/23 06:49 PG Care Time/CCT Total # of Minutes Spent Total Time Spent with Patient: Total time spent is greater than 50% in coordination of care (as documented) at patient's floor/unit and/or counseling patient: Coding Level of Care Code 61347 SUB INP/OBS CARE 2/35MIN Diagnoses Atelectasis of both lungs J98.11 COVID-19 U07.1 Acute respiratory failure with hypoxia J96.01
--- NOTE | 2023-06-09 18:57 | Billing Data ---
Date of Service June 09, 2023 Coding Level of Care Code 41125 SUB INP/OBS CARE MIN
[2023-06-10 02:46] LABS: Basophils # (auto) 0.01 K/uL (0.00-0.20); Basophils % (auto) 0.1 %; Eosinophils # (auto) 0.02 K/uL (0.00-0.50); Eosinophils % (auto) 0.2 %; Hematocrit (blood only) 40.6 % (42.0-52.0); Hemoglobin 13.8 g/dl (14.0-18.0); Immature Granulocytes % (auto) 0.9 %; Lymphocytes # (auto) 0.79 K/uL (1.20-3.40); Lymphocytes % (auto) 7.3 %; Mean Corpuscular Hemoglobin 33.4 pg (25.0-34.0); Mean Corpuscular Volume 98.3 fL (80.0-100.0); Mean Platelet Volume 10.2 fL (9.4-12.4); Monocytes # (auto) 0.38 K/uL (0.11-0.59); Monocytes % (auto) 3.5 %; Neutrophils # (auto) 9.48 K/uL (1.40-6.50); Platelet Count 356 K/uL (130-400); RDW Coefficient of Variation 12.9 % (11.5-14.5); RDW Standard Deviation 46.5 fL (36.4-46.3); Red Blood Count 4.13 M/uL (4.70-6.10); White Blood Count 10.78 K/ul (4.8-10.8)
[2023-06-10 03:05] LABS: BUN Creatinine Ratio 22.3 (10-20); Calcium 8.9 mg/dl (8.6-10.3); Creatinine Clr Calc Pharmacy 44.7 ml/min; Est GFR (Non-African American) 39.7 ml/min; Potassium 5.3 mmol/L (3.5-5.1)
[2023-06-10] MEDS ORDERED: VANCOMYCIN LEVEL ONE (03:30)
[2023-06-10] MEDS: VANCOMYCIN HCL 1,250 MG in SODIUM CHLORIDE 0.9% 250 ML IV SCH (03:56)
[2023-06-10] MEDS: ALBUT/IPRATROP 3MG/0.5MG NEB 3 ML VIAL NEB SCH ×3 (07:02→19:02)
[2023-06-10] MEDS: ACETYLCYSTEINE 20% INHAL SOLN 4ML ***DISPENSED BY RESP. INH SCH ×2 (07:02→19:01)
[2023-06-10] MEDS: SODIUM CHLOR 7% 4 ML NEB NEB SCH ×2 (07:02→19:01)
--- NOTE | 2023-06-10 08:03 | Hospitalist Progress Note ---
Date of Service June 10, 2023 Assessment & Plan (1) Pneumonia of both lower lobes: Plan: Colby Alcaraz is a 73 year-old male with PMH of recent right MCA stroke, HTN, diabetes, HLD, and COPD presenting from [facility] due to SOB. He tested positive for COVID prior to presentation. Bibasilar bacterial pneumonia in the setting of COVID -CT showed extensive bilateral lower lobe opacities; procal 2.36 (repeat 0.96, 0.17); MRSA nares neg -ABG upon admission showed hypoxia w/o hypercapnia upon admission; repeat ABG 06/05 showed the same -Blood cx negative -repeat CXR 06/02 showed improvement in opacities; repeat chest CT 06/03 showed what seemed to be a progressed LLL pneumonia -pt s/p zosyn and vanco in the ED; s/p cefepime 2g q8hr x4days; switched to zosyn 06/03 for anaerobic coverage- Sputum culture grew MRSA, so switched to vancomycin 06/07 -Continue Vancomycin, d/c Zosyn on 06/09 -Currently on 9L NC this afternoon -?COPD hx; s/p 3 days 40 mg methylprednisone BID, will decrease to daily (day 4) with the plan to continue to wean with hopeful decreasing oxygen requirement, azithromycin 250 mg daily x5 days completed 06/03 -Continue Methylpred 40 daily -continue duoneb q8hr, flutter valve, incentive spirometry, cough assist, hypertonic nebs, mucomyst, chest therapy for mucous clearance and bronchodilation -VFSS 06/04 did not show aspiration -Pulmonology consulted, appreciate recommendations Hx of ischemic stroke -continue daily aspirin -will plan for discharge back to [facility] for rehab when oxygen requirement reasonable (<6L) Elevated Cr -unsure of pt's baseline Cr; 1.62 upon admission -after fluid resuscitation, pt's Cr unchanged- suspect this is around his baseline -Continue to monitor Diabetes -Hgb A1c 7.8% -hold home medications -goal BS 110-150, insulin glargine to 25 units BID, CF 15, CR 4 Hx of [place] -pt has hx of stent placement -troponin peaked in 20s and has since downtrended -continue daily aspirin, atenolol, atorvastatin Hypomagnesemia -Noted on admission, Repleted -continue home magnesium oxide 400 mg daily Diet: heart healthy DVT ppx: heparin Code: DNR/DNI Dispo: Med-surg. Plan for discharge back to [facility] once oxygen requirement/symptoms allow (2) COVID-19: (3) Hypoxia: (4) Diabetes: (5) HTN (hypertension): (6) Hyperlipidemia: (7) Hypomagnesemia: Admission and Anticipated Discharge Date Admission Date: May 30, 2023 Supervising Physician Co-Signing Physician Notes I personally examined the patient and verified all ya points of history and exam, discussed case, and agree with decision making with Dr Stafford breathing feels better. Hoping for discharge soon. Not really using incentive spirometer or flutter valveI had him do both. Breathing unlabored no accessory muscle use good effort. Somewhat diminished breath sounds bibasilar, but overall no rales rhonchi or wheezes moderate air entry good effort no accessory muscle use. Skin shows no rashes no pallor or icterus. Neuro without focal deficits. Pneumonia with persistent and severe hypoxia/high oxygen requirementsputum surprisingly grew resistant staph, in spite of negative MRSA naresI suspect this is probably the problem, now improving on vancomycin, hypoxia improving. Wean oxygen, stable for medical, hopefully back to rehab soon. Otherwise as above Subjective Patient seen and examined at bedside. Patient initially sleeping during encounter but awakened easily. He denies any current pain, endorses he was able to eat some breakfast this morning. Nasal cannula in place. Denies any abdominal discomfort. Review of Systems Review of Systems: As per above Physical Exam Constitutional: no acute distress Eyes: + anicteric sclerae; no conjunctival abnormality ENMT: Ears: no external ear abnormality Nose: no external nose abnormality Respiratory: no respiratory distress and does not use accessory muscles Auscultation: + diminished lung sounds Cardiovascular: Rate/Rhythm: regular rate and regular rhythm Gastrointestinal (Abdomen): Inspection/Auscultation: abdomen not distended Percussion/Palpation: abdomen soft; abdomen nontender Skin: no rashes, warm and dry Psychiatric: Pleasant, alert. Results & Data Results & Data Vital Signs (Past 12 Hours) Vital Signs Temp Pulse Pulse Resp BP BP Pulse Ox 06/10/23 08:00 36.4 C L 52 L 17 131/80 93 06/10/23 07:02 52 L 18 97 06/10/23 04:29 36.4 C L 63 16 131/80 94 06/10/23 00:10 06/10/23 00:31 96 06/09/23 23:41 36.4 C L 72 20 117/73 91 06/09/23 23:16 72 O2 Del Method O2 Flow Rate 06/10/23 08:00 Room Air 06/10/23 07:02 Nasal Cannula 11 06/10/23 04:29 Nasal Cannula 10.0 06/10/23 00:10 High Flow Nasal Cannula 15 06/10/23 00:31 Nasal Cannula 12 06/09/23 23:41 Nasal Cannula 10.0 06/09/23 23:16 Resident Activity Tracking Resident Involvement: Resident Care Provided Care Provided: Adult Hospital Medicine
[2023-06-10] MEDS: LORATADINE 10 MG TAB PO SCH (08:18)
[2023-06-10] MEDS: amLODIPine BESYLATE 5 MG TAB PO SCH (08:18)
[2023-06-10] MEDS: PANTOprazole 40 MG TAB PO SCH (08:18)
[2023-06-10] MEDS: ASPIRIN 81 MG ECTAB PO SCH (08:18)
[2023-06-10] MEDS: ATORVASTATIN 40 MG TAB PO SCH (08:18)
[2023-06-10] MEDS: MAGNESIUM OXIDE 400 MG TAB PO SCH (08:18)
[2023-06-10] MEDS: DOCUSATE SODIUM 100 MG CAP PO SCH ×2 (08:18→22:06)
[2023-06-10] MEDS: methylPREDNISolone 40 MG in SYRINGE 0 ML IV SCH (08:18)
[2023-06-10] MEDS: ATENOLOL 50 MG TABLET PO SCH (08:18)
[2023-06-10] MEDS: HEPARIN SOD 5,000 UNIT/0.5 ML VIAL SQ SCH ×2 (08:19→22:06)
[2023-06-10] MEDS: LANTUS PER UNIT CHARGE SQ SCH ×2 (08:33→22:07)
[2023-06-10] MEDS: INSULIN ASPART PER UNIT CHARGE SC SCH ×4 (08:33→22:06)
[2023-06-10] MEDS: VENLAFAXINE HCL XR 75 MG CAPXR PO SCH (09:34)
--- NOTE | 2023-06-10 09:55 | Pharmacy Report ---
Pharmacy PK ABX Note - Date of Service June 10, 2023 - Assessment and Plan Assessment Patient completed Zosyn therapy. This was discontinued yesterday. Today is day #4 of Vancomycin therapy. Trough level obtained before dose this AM = 13.5 mcg/ml. Plan Vancomycin * Current regimen: 1250 mg IV every 24 hours * Trough level obtained at 02:30 resulted as 13.5 mcg/mL. This is predicted to achieve target AUC/LEIGHTON of 400-600 mg/L.hr * Predicted AUC at steady state: 457 mg/L.hr * Continue current regimen for coag negative staph that grew in sputum culture. * Will repeat level in the next 48-72 hours if therapy is continued and/or change in patient clinical status Pharmacy will continue to follow and will adjust dose/frequency as necessary. Thank you. Pharmacy has transitioned to AUC monitoring for vancomycin. AUC/LEIGHTON is the preferred PK/PD target and is associated with decreased risk of nephrotoxicity compared to traditional trough targets.
--- NOTE | 2023-06-10 19:04 | Billing Data ---
Date of Service June 10, 2023 Coding Level of Care Code 10140 SUB INP/OBS CARE
[2023-06-11] MEDS: VANCOMYCIN HCL 1,250 MG in SODIUM CHLORIDE 0.9% 250 ML IV SCH (04:13)
--- NOTE | 2023-06-11 07:15 | Hospitalist Progress Note ---
Date of Service June 11, 2023 Assessment & Plan (1) Pneumonia of both lower lobes: Plan: Colby Alcaraz is a 73 year-old male with PMH of recent right MCA stroke, HTN, diabetes, HLD, and COPD presenting from [facility] due to SOB. He tested positive for COVID prior to presentation. Bibasilar bacterial pneumonia in the setting of COVID -CT showed extensive bilateral lower lobe opacities; procal 2.36 (repeat 0.96, 0.17); MRSA nares neg -ABG upon admission showed hypoxia w/o hypercapnia upon admission; repeat ABG 06/05 showed the same -Blood cx negative -repeat CXR 06/02 showed improvement in opacities; repeat chest CT 06/03 showed what seemed to be a progressed LLL pneumonia -pt s/p zosyn and vanco in the ED; s/p cefepime 2g q8hr x4days; switched to zosyn 06/03 for anaerobic coverage- Sputum culture grew MRSA, so switched to vancomycin 06/07 -Continue Vancomycin, d/c Zosyn on 06/09 -Anticipate ~7 day course of vancomycin -Currently on 4L NC this afternoon -Has been able to tolerate some therapy without significant oxygen desaturations -?COPD hx; s/p 3 days 40 mg methylprednisone BID, will decrease to daily (day 4) with the plan to continue to wean with hopeful decreasing oxygen requirement, azithromycin 250 mg daily x5 days completed 06/03 -Continue Methylpred 40 daily -continue duoneb q8hr, flutter valve, incentive spirometry, cough assist, hypertonic nebs, mucomyst, chest therapy for mucous clearance and bronchodilation -VFSS 06/04 did not show aspiration -Pulmonology consulted, appreciate recommendations Hx of ischemic stroke -continue daily aspirin -will plan for discharge back to [facility] for rehab when oxygen requirement reasonable (<6L) Elevated Cr -unsure of pt's baseline Cr; 1.62 upon admission -after fluid resuscitation, pt's Cr unchanged- suspect this is around his baseline -Continue to monitor Diabetes -Hgb A1c 7.8% -hold home medications -goal BS 110-150, insulin glargine to 25 units BID, CF 15, CR 4 Hx of [place] -pt has hx of stent placement -troponin peaked in 20s and has since downtrended -continue daily aspirin, atenolol, atorvastatin Hypomagnesemia -Noted on admission, Repleted -continue home magnesium oxide 400 mg daily Diet: heart healthy DVT ppx: heparin Code: DNR/DNI Dispo: Med-surg. Plan for discharge back to [facility] once oxygen requirement/symptoms allow (2) COVID-19: (3) Hypoxia: (4) Diabetes: (5) HTN (hypertension): (6) Hyperlipidemia: (7) Hypomagnesemia: Admission and Anticipated Discharge Date Admission Date: May 30, 2023 Supervising Physician Co-Signing Physician Notes I personally examined the patient and verified all ya points of history and exam, discussed case, and agree with decision making with Dr Stafford Feels okay no new complaints. Discussed with case management that he is overall pretty stablethe main things would be his oxygen requirements and needing to continue vancomycin basically through Thursday morning. Breathing unlabored no accessory muscle use good effort. Skin shows no rashes no pallor or icterus. Neuro without focal deficits. Pneumonia with persistent and severe hypoxia/high oxygen requirementsputum surprisingly grew resistant staph, in spite of negative MRSA naresI suspect this is probably the problem, now improving on vancomycin, hypoxia improving. Wean oxygen, stable for medical, hopefully back to rehab soon. return to rehab once they are able to accommodate his oxygen requirements, and if they are able to complete his vancomycinif not, then likely return to rehab as soon as vancomycin is complete Otherwise as above Subjective Patient seen and examined at bedside. No overnight events reported. Patient notes that he is hungry and frustrated. Denies any current pain. Review of Systems Review of Systems: As per above Physical Exam Constitutional: no acute distress Eyes: + anicteric sclerae; no conjunctival abnormality ENMT: Ears: no external ear abnormality Nose: no external nose abnormality Respiratory: no respiratory distress and does not use accessory muscles Auscultation: + diminished lung sounds Nasal cannula in place Cardiovascular: Rate/Rhythm: regular rate and regular rhythm Gastrointestinal (Abdomen): Inspection/Auscultation: abdomen not distended Skin: no rashes, warm and dry Results & Data Results & Data Vital Signs (Past 12 Hours) Vital Signs Temp Pulse Resp BP Pulse Ox O2 Del Method O2 Flow Rate 06/10/23 22:00 High Flow Nasal Cannula 10 06/10/23 19:59 36.6 C 80 18 120/71 94 Nasal Cannula Resident Activity Tracking Resident Involvement: Resident Care Provided Care Provided: Adult Hospital Medicine
[2023-06-11] MEDS: ALBUT/IPRATROP 3MG/0.5MG NEB 3 ML VIAL NEB SCH ×3 (07:18→20:10)
[2023-06-11] MEDS: SODIUM CHLOR 7% 4 ML NEB NEB SCH ×2 (07:18→20:10)
[2023-06-11] MEDS: ACETYLCYSTEINE 20% INHAL SOLN 4ML ***DISPENSED BY RESP. INH SCH ×2 (07:18→20:10)
[2023-06-11 08:12] LABS: Basophils # (auto) 0.03 K/uL (0.00-0.20); Basophils % (auto) 0.3 %; Eosinophils # (auto) 0.15 K/uL (0.00-0.50); Eosinophils % (auto) 1.3 %; Hematocrit (blood only) 40.5 % (42.0-52.0); Hemoglobin 13.3 g/dl (14.0-18.0); Immature Granulocytes # (auto) 0.07 K/uL (0.01-0.20); Immature Granulocytes % (auto) 0.6 %; Lymphocytes # (auto) 2.24 K/uL (1.20-3.40); Lymphocytes % (auto) 19.7 %; Mean Corpuscular Hemoglobin 32.9 pg (25.0-34.0); Mean Corpuscular Hgb Conc 32.8 g/dL (32.0-36.0); Mean Corpuscular Volume 100.2 fL (80.0-100.0); Mean Platelet Volume 10.2 fL (9.4-12.4); Monocytes # (auto) 1.01 K/uL (0.11-0.59); Monocytes % (auto) 8.9 %; Neutrophils # (auto) 7.87 K/uL (1.40-6.50); Neutrophils % (auto) 69.2 %; Platelet Count 345 K/uL (130-400); RDW Coefficient of Variation 12.6 % (11.5-14.5); RDW Standard Deviation 46.8 fL (36.4-46.3); Red Blood Count 4.04 M/uL (4.70-6.10); White Blood Count 11.37 K/ul (4.8-10.8)
[2023-06-11 08:28] LABS: BUN Creatinine Ratio 24.7 (10-20); Calcium 9.4 mg/dl (8.6-10.3); Creatinine Clr Calc Pharmacy 50.6 ml/min; Est GFR (African American) 53.8 ml/min; Est GFR (Non-African American) 46.4 ml/min; Potassium 4.6 mmol/L (3.5-5.1)
[2023-06-11] MEDS: LANTUS PER UNIT CHARGE SQ SCH ×2 (09:19→21:11)
[2023-06-11] MEDS: INSULIN ASPART PER UNIT CHARGE SC SCH ×4 (09:20→21:11)
[2023-06-11] MEDS: HEPARIN SOD 5,000 UNIT/0.5 ML VIAL SQ SCH ×2 (09:30→21:11)
[2023-06-11] MEDS: ATORVASTATIN 40 MG TAB PO SCH (09:30)
[2023-06-11] MEDS: LORATADINE 10 MG TAB PO SCH (09:30)
[2023-06-11] MEDS: ASPIRIN 81 MG ECTAB PO SCH (09:30)
[2023-06-11] MEDS: DOCUSATE SODIUM 100 MG CAP PO SCH ×2 (09:30→21:11)
[2023-06-11] MEDS: VENLAFAXINE HCL XR 75 MG CAPXR PO SCH (09:30)
[2023-06-11] MEDS: MAGNESIUM OXIDE 400 MG TAB PO SCH (09:30)
[2023-06-11] MEDS: ATENOLOL 50 MG TABLET PO SCH (09:31)
[2023-06-11] MEDS: PANTOprazole 40 MG TAB PO SCH (09:31)
[2023-06-11] MEDS: amLODIPine BESYLATE 5 MG TAB PO SCH (09:31)
[2023-06-11] MEDS: methylPREDNISolone 40 MG in SYRINGE 0 ML IV SCH (10:19)
--- NOTE | 2023-06-11 18:23 | Billing Data ---
Date of Service June 11, 2023 Coding Level of Care Code 27622 SUB INP/OBS CARE
[2023-06-12] MEDS: VANCOMYCIN HCL 1,250 MG in SODIUM CHLORIDE 0.9% 250 ML IV SCH (03:07)
[2023-06-12 06:56] LABS: Basophils # (auto) 0.04 K/uL (0.00-0.20); Basophils % (auto) 0.4 %; Eosinophils # (auto) 0.11 K/uL (0.00-0.50); Eosinophils % (auto) 1.1 %; Hematocrit (blood only) 39.7 % (42.0-52.0); Hemoglobin 13.4 g/dl (14.0-18.0); Immature Granulocytes # (auto) 0.05 K/uL (0.01-0.20); Immature Granulocytes % (auto) 0.5 %; Lymphocytes # (auto) 2.16 K/uL (1.20-3.40); Lymphocytes % (auto) 21.6 %; Mean Corpuscular Hemoglobin 33.7 pg (25.0-34.0); Mean Corpuscular Hgb Conc 33.8 g/dL (32.0-36.0); Mean Corpuscular Volume 99.7 fL (80.0-100.0); Mean Platelet Volume 10.3 fL (9.4-12.4); Monocytes # (auto) 0.76 K/uL (0.11-0.59); Monocytes % (auto) 7.6 %; Neutrophils # (auto) 6.87 K/uL (1.40-6.50); Neutrophils % (auto) 68.8 %; Platelet Count 330 K/uL (130-400); RDW Coefficient of Variation 12.5 % (11.5-14.5); RDW Standard Deviation 45.9 fL (36.4-46.3); Red Blood Count 3.98 M/uL (4.70-6.10); White Blood Count 9.99 K/ul (4.8-10.8)
[2023-06-12] MEDS: SODIUM CHLOR 7% 4 ML NEB NEB SCH ×2 (07:19→19:47)
[2023-06-12] MEDS: ACETYLCYSTEINE 20% INHAL SOLN 4ML ***DISPENSED BY RESP. INH SCH ×2 (07:19→19:46)
[2023-06-12] MEDS: ALBUT/IPRATROP 3MG/0.5MG NEB 3 ML VIAL NEB SCH ×3 (07:19→19:47)
--- NOTE | 2023-06-12 07:40 | Hospitalist Progress Note ---
Date of Service June 12, 2023 Assessment & Plan (1) Pneumonia of both lower lobes: Plan: Colby Alcaraz is a 73 year-old male with PMH of recent right MCA stroke, HTN, diabetes, HLD, and COPD presenting from [facility] due to SOB. He tested positive for COVID prior to presentation. Bibasilar bacterial pneumonia in the setting of COVID -CT showed extensive bilateral lower lobe opacities; procal 2.36 (repeat 0.96, 0.17); MRSA nares neg -ABG upon admission showed hypoxia w/o hypercapnia upon admission; repeat ABG 06/05 showed the same -Blood cx negative -repeat CXR 06/02 showed improvement in opacities; repeat chest CT 06/03 showed what seemed to be a progressed LLL pneumonia -pt s/p zosyn and vanco in the ED; s/p cefepime 2g q8hr x4days; switched to zosyn 06/03 for anaerobic coverage- Sputum culture grew MRSA, so switched to vancomycin 06/07 -Continue Vancomycin, d/c Zosyn on 06/09 -Anticipate ~7 day course of vancomycin -Currently on 4L NC this afternoon -Has been able to tolerate some therapy without significant oxygen desaturations -?COPD hx; s/p 3 days 40 mg methylprednisone BID, will decrease to daily (day 4) with the plan to continue to wean with hopeful decreasing oxygen requirement, azithromycin 250 mg daily x5 days completed 06/03 -Continue Methylpred 40 daily -continue duoneb q8hr, flutter valve, incentive spirometry, cough assist, hypertonic nebs, mucomyst, chest therapy for mucous clearance and bronchodilation -VFSS 06/04 did not show aspiration -Pulmonology consulted, appreciate recommendations Hx of ischemic stroke -continue daily aspirin -will plan for discharge back to [facility] for rehab when oxygen requirement reasonable (<6L) Elevated Cr -unsure of pt's baseline Cr; 1.62 upon admission -after fluid resuscitation, pt's Cr unchanged- suspect this is around his baseline -Continue to monitor Diabetes -Hgb A1c 7.8% -hold home medications -goal BS 110-150, insulin glargine to 25 units BID, CF 15, CR 4 Hx of [place] -pt has hx of stent placement -troponin peaked in 20s and has since downtrended -continue daily aspirin, atenolol, atorvastatin Hypomagnesemia -Noted on admission, Repleted -continue home magnesium oxide 400 mg daily Diet: heart healthy DVT ppx: heparin Code: DNR/DNI Dispo: Med-surg. Plan for discharge back to [facility] once oxygen requirement/symptoms allow (2) COVID-19: (3) Hypoxia: (4) Diabetes: (5) HTN (hypertension): (6) Hyperlipidemia: (7) Hypomagnesemia: Admission and Anticipated Discharge Date Admission Date: May 30, 2023 Review of Systems Review of Systems: As per above Physical Exam Constitutional: no acute distress Eyes: + anicteric sclerae; no conjunctival abnormality ENMT: Ears: no external ear abnormality Nose: no external nose abnormality Respiratory: + cough; no respiratory distress and does not use accessory muscles Auscultation: + diminished lung sounds and + crackles Cardiovascular: Rate/Rhythm: regular rate and regular rhythm Gastrointestinal (Abdomen): Inspection/Auscultation: abdomen not distended Percussion/Palpation: abdomen soft; abdomen nontender and no hepatosplenomegaly Skin: no rashes, warm and dry Results & Data Results & Data Vital Signs (Past 12 Hours) Vital Signs Temp Pulse Resp BP Pulse Ox O2 Del Method O2 Flow Rate 06/12/23 07:19 62 18 93 Room Air 06/12/23 04:40 37.2 C 61 16 115/89 93 Nasal Cannula 3 06/11/23 23:40 High Flow Nasal Cannula 2 06/11/23 20:30 36.7 C 73 18 125/70 93 Nasal Cannula 2 06/11/23 20:10 67 18 94 Nasal Cannula 2 Resident Activity Tracking Resident Involvement: Resident Care Provided Care Provided: Adult Hospital Medicine
[2023-06-12] MEDS: ASPIRIN 81 MG ECTAB PO SCH (08:28)
[2023-06-12] MEDS: ATORVASTATIN 40 MG TAB PO SCH (08:28)
[2023-06-12] MEDS: VENLAFAXINE HCL XR 75 MG CAPXR PO SCH (08:28)
[2023-06-12] MEDS: methylPREDNISolone 40 MG in SYRINGE 0 ML IV SCH (08:28)
[2023-06-12] MEDS: LORATADINE 10 MG TAB PO SCH (08:28)
[2023-06-12] MEDS: amLODIPine BESYLATE 5 MG TAB PO SCH (08:29)
[2023-06-12] MEDS: ATENOLOL 50 MG TABLET PO SCH (08:29)
[2023-06-12] MEDS: MAGNESIUM OXIDE 400 MG TAB PO SCH (08:29)
[2023-06-12] MEDS: PANTOprazole 40 MG TAB PO SCH (08:29)
[2023-06-12] MEDS: HEPARIN SOD 5,000 UNIT/0.5 ML VIAL SQ SCH ×2 (08:31→20:31)
[2023-06-12] MEDS: DOCUSATE SODIUM 100 MG CAP PO SCH ×2 (08:31→21:36)
[2023-06-12] MEDS: INSULIN ASPART PER UNIT CHARGE SC SCH ×4 (08:44→21:32)
[2023-06-12] MEDS: LANTUS PER UNIT CHARGE SQ SCH ×2 (08:45→21:32)
[2023-06-12 10:18] LABS: Creatinine Clr Calc Pharmacy 51.3 ml/min; Est GFR (African American) 54.7 ml/min; Est GFR (Non-African American) 47.2 ml/min
[2023-06-12] MEDS: predniSONE 20 MG TAB PO SCH (13:09)
--- NOTE | 2023-06-12 15:22 | Discharge Summary ---
Date of Service June 12, 2023 Admission HPI Per Admitting Provider Pt is a 73 yo male with PMH of recent right MCA stroke, HTN, diabetes, HLD, and COPD presenting from [facility] due to SOB. Pt was seen in the ED with and daughter at bedside. Pt had a stroke ~2 weeks ago and was at [facility] for rehab. Around 2 days ago, he developed a sore throat and tested positive for COVID. Per the pt, he was not having breathing difficulty; however, he was sent to the ER because of others seeing him struggle to breath. Per pt's , pt has a hx of COPD but does not use daily inhalers. He does not use oxygen at home. Pt has no other complaints or concerns. He denies chest pain, abdominal pain, diarrhea/constipation, or leg pains. In the ER, his blood work showed that he had a mild leukocytosis with a left shift, Cr 1.62, troponin 23, procal 2.36, BNP 70. His ABG showed pH of 7.38, PCO2 33, and PO2 65. Pt satting 88-low 90s on 15L nonrebreather. CXR and CT showed extensive bibasilar opacities consistent with PNA. Admission Exam Per Admitting Provider Constitutional:ill appearing but nontoxic, no acute distress HEENT:normocephalic, no conjunctival injection CV:regular rhythm, regular rate, no murmur, no LE edema Respiratory:Air movement adequate throughout. Wheezing heard mostly in bilateral upper air [place]. Rhonchus sounds head throughout bilateral lower air [place]. Minimal use of accessory muscles. GI:soft, nondistended, nontender MSK:no gross deformities noted, 4/5 strength in bilateral UE and LE, hadoop analyst strength adequate bilaterally. Resting tremor of bilateral feet and hands noted. Skin:warm, dry, no rashes Neuro:alert and oriented Principal Diagnosis COVID positive, pneumonia Discharge Exam Constitutional: no acute distress Eyes: + anicteric sclerae; no conjunctival abnormality ENMT: Ears: no external ear abnormality Nose: no external nose abnormality Respiratory: no respiratory distress and does not use accessory muscles Auscultation: + diminished lung sounds Nasal cannula in place Cardiovascular: Rate/Rhythm: regular rate and regular rhythm Gastrointestinal (Abdomen): Inspection/Auscultation: abdomen not distended Skin: no rashes, warm and dry Discharge Data Allergies Allergy/AdvReac Type Severity Reaction Status Date / Time lisinopril AdvReac Fatigued Verified 05/31/23 07:38 Consultations 06/04/23 07:00 Consult Pulmonology Routine Ordered Studies 05/30/23 12:10 CT angio chest PE protocol Stat 06/03/23 17:16 CT chest diagnostic wo con Routine 06/04/23 13:00 FL video swallow Routine Chest CTA 05/30/23 12:10 CT ANGIOGRAPHY OF THE CHEST, PULMONARY EMBOLUS PROTOCOL CLINICAL HISTORY: hypoxia, SOB, +covid COMPARISON STUDY: Chest radiograph performed earlier today. TECHNIQUE: Following IV administration of 119 mL of Optiray, helical axial images of the chest were obtained utilizing the pulmonary embolus protocol. Maximal intensity projections and sagittal and coronal reformats were viewed on an independent 3D workstation. IV contrast was administered without complication. Automated exposure control was utilized for the study. A dose lowering technique was utilized adhering to the principles of ALARA. CT DOSE: 947.68 mGy.cm FINDINGS: No pulmonary emboli are identified. There is no thoracic aortic dissection. There is mild cardiomegaly and moderate coronary artery calcification. There is no pericardial effusion. There is a large hiatal hernia with partially intrathoracic stomach. Multiple mildly enlarged mediastinal and right hilar nodes are noted. Index right hilar node measures 1.5 x 1.1 cm. AP window lymph node measures 1.6 x 1.1 cm. The esophagus is fluid-filled and mildly distended. There is no pneumothorax. There is trace bilateral pleural fluid. Lungs are suboptimally assessed due to respiratory motion. There is extensive bilateral lower lobe airspace opacity with volume loss, greater on the right. There is near complete right lower lobe collapse. In addition, there are airspace opacities within the left lower lobe. This includes a 3.1 cm opacity within the superior segment on image 123. Moderate secretions within the bilateral lower lobe bronchi are present. No central obstructing mass is identified. IMPRESSION: 1. No pulmonary emboli identified. 2. Extensive bilateral lower lobe airspace opacities with volume loss, greater on the right. Near complete right lower lobe collapse and segmental left lower lobe atelectasis. Secretions within the bilateral lower lobe bronchi. The findings raise the possibility of aspiration pneumonitis. Pneumonia could appear similar. Follow-up chest CT in one to 2 months to ensure resolution is rec ommended. 3. Multiple mildly enlarged mediastinal and right hilar lymph nodes. These may be reactive but should be assessed on follow-up CT. 4. Large hiatal hernia with partially intrathoracic stomach. Mildly dilated, fluid-filled esophagus. This could increase risk for aspiration. ACT 112: Negative or not required by law. Electronically signed by: Thomas Key M.D. 05/30/2023 3:42 PM Chest X-Ray 05/30/23 12:10 XR chest 1V portable CLINICAL HISTORY: Dyspnea. + covid COMPARISON STUDY: No previous studies for comparison. FINDINGS: No pneumothorax or pleural effusion is present. There is mild cardiomegaly. Lower lung interstitial thickening is present. Left basilar airspace opacity is noted. Lung volumes are normal. IMPRESSION: 1. Lower lung interstitial thickening and left basilar opacity. This could reflect an infectious process or mild pulmonary edema. Radiographic follow-up to ensure resolution is recommended. 2. Mild cardiomegaly. ACT 112: Negative or not required by law. Electronically signed by: Thomas Key M.D. 05/30/2023 12:29 PM Chest X-Ray 06/02/23 09:17 XR chest 1V portable CLINICAL HISTORY: f/u PNA TECHNIQUE: Single frontal radiograph of the chest was obtained. Comparison: Comparison is made to chest radiograph 05/30/2023 FINDINGS: Exam is limited by underpenetration. The cardiomediastinal silhouette is stable. Previously noted airspace opacities have resolved. No evidence of pleural effusion or pneumothorax. A hiatal hernia is seen. IMPRESSION: Previously noted airspace opacities have resolved. ACT 112: Negative or not required by law. Electronically signed by: Luis Eduardo Lanier M.D. 06/02/2023 11:[address] 06/03/23 17:16 CT chest diagnostic wo con CLINICAL HISTORY: persistent oxygen requirement TECHNIQUE: Multidetector row helical CT of the chest was performed. Coronal and sagittal reformations were obtained. Automated dose lowering techniques and/or adjustment according to patient size were utilized for this exam. CT DOSE: 771.40 mGy.cm Comparison: Comparison is made to CTA chest 05/30/2020 FINDINGS: Lungs and pleura: Opacification and volume loss of the left greater than right lower lobes noted. Right lower lobe is slightly better aerated than in the prior exam. There is interval development of a few groundglass opacities in the right greater than left upper lobes as well. Heart and pericardium: Heart size is normal. No pericardial effusion. Vessels: Severe atherosclerotic changes in the aorta and coronary arteries. 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 Multiple mediastinal lymph nodes measure up to 11 mm, unchanged from prior exam. Chest wall and lower neck: Unremarkable. Abdomen: A large hiatal hernia is seen. Bones: Degenerative changes in the thoracic spine. Compression deformity of T7 is unchanged from prior. IMPRESSION: 1. Findings compatible with continued atelectasis of the bilateral lower lungs. Superimposed consolidation, particularly of the left lower lung, may be present. A few scattered groundglass nodules likely represent infectious/inflammatory process, new from prior exam. Lymphadenopathy may be reactive. 2. Large hiatal hernia. ACT 112: Negative or not required by law. Electronically signed by: Luis Eduardo Lanier M.D. 06/03/2023 8:55 PM Videofluoroscopic Swallow 06/04/23 13:00 FL video swallow CLINICAL HISTORY: r/o aspiration TECHNIQUE: Video fluoroscopy of the pharyngeal region was performed as barium mixtures of varying consistencies were administered to the patient by the speech pathologist. A formal esophagram was not performed. Comparison: None available at the time of this dictation. FINDINGS: Total fluoroscopy time: 2.1 minutes. Radiation dose: 8.58 mGy. The patient swallowed the different barium consistencies without difficulty. There was no laryngeal vestibular penetration or sally tracheal aspiration. IMPRESSION: No evidence of aspiration. Please see the speech pathology report for further details. ACT 112: Negative or not required by law. Electronically signed by: Luis Eduardo Lanier M.D. 06/04/2023 1:36 PM Chest X-Ray 06/05/23 07:34 XR chest 1V portable CLINICAL HISTORY: f/u TECHNIQUE: Single frontal radiograph of the chest was obtained. Comparison: Comparison is made to chest radiograph 06/02/2023 FINDINGS: No lines and tubes are seen. The cardiomediastinal silhouette is normal. There is a faint right lower lung air space opacity as well as left lower lung atelectasis. No evidence of pleural effusion or pneumothorax. IMPRESSION: Left lower lung atelectasis. Right lower lung airspace opacity may represent atelectasis, pneumonia, and/or aspiration. ACT 112: Negative or not required by law. Electronically signed by: Luis Eduardo Lanier M.D. 06/05/2023 8:28 AM Chest X-Ray 06/07/23 07:00 SINGLE VIEW CHEST CLINICAL HISTORY: Follow-up right bibasilar consolidation. FINDINGS: An AP, portable, upright chest radiograph is compared to study dated 06/05/2023 and correlated with chest CT dated 06/03/2023. The examination is degraded by portable technique and apical lordotic positioning. The heart is enlarged noting atherosclerotic calcification of the thoracic aorta. The pulmonary vasculature is noncongested. There is bibasilar consolidation, left greater than right with trace pleural effusions. No pneumothorax is seen. The skeletal structures are osteopenic. The bony thorax is grossly intact. IMPRESSION: 1. Cardiomegaly without radiographic evidence of congestive failure. 2. Bibasilar consolidation and trace pleural effusions. This is similar to previous. ACT 112: Negative or not required by law. Electronically signed by: Dax Stevens M.D. 06/07/2023 8:31 AM Hospital Course (1) Pneumonia of both lower lobes: (2) COVID-19: (3) Hypoxia: (4) Diabetes: (5) HTN (hypertension): (6) Hyperlipidemia: (7) Hypomagnesemia: Plan Bibasilar bacterial pneumonia in the setting of COVID -Initially treated with Cefepime for 4 days but switched to Zosyn for anaerobic coverage. -Despite MRSA nares negative, sputum culture grew MRSA -Switched to Vancomycin on 06/07, discontinued Zosyn on 06/09 -Patient will need one more dose to complete 7 day course of Vancomycin at 1500mg on 06/13 (per recommendation from pharmacy on day of discharge) -Steroids tapered from methylprednisolone BID to daily to prednisone 40 daily -Oxygen requirement during admission has decreased from high flow at 50L to nasal cannula at ~4L. -continue DuoNeb q8hr, flutter valve, incentive spirometry, cough assist, hypertonic nebs, Mucomyst, chest therapy for mucous clearance and bronchodilation Hx of ischemic stroke -continue daily aspirin Elevated Cr -unsure of pt's baseline Cr; 1.62 upon admission -after fluid resuscitation, pt's Cr unchanged- suspect this is around his baseline Diabetes -Hgb A1c 7.8% -hold home medications -goal BS 110-150, insulin glargine to 25 units BID, CF 15, CR 4 Hx of PR -pt has hx of stent placement -continue daily aspirin, atenolol, atorvastatin Hypomagnesemia -Noted on admission, Repleted -continue home magnesium oxide 400 mg daily Total Time Total Time Spent Total Time Spent (In Minutes): . Discharge Plan Discharge Items Patient Disposition: Transfer Inpatient Rehab Fac Reason For Visit: SOB, COVID+ Discharge Diagnosis: COVID+, Pneumonia Activity: Per Instructions section Non-emergency contact: Primary Care Provider Call non-emergency contact if: you have any medication questions and your symptoms worsen Follow-up/Referrals: [facility] [Primary Care Provider] - Diet: Carb Consistent or DM2 and Low Potassium (2gm) Addtl Attending Provider Instructions: Bibasilar bacterial pneumonia in the setting of COVID -Initially treated with Cefepime for 4 days but switched to Zosyn for anaerobic coverage. -Despite MRSA nares negative, sputum culture grew MRSA -Switched to Vancomycin on 06/07, discontinued Zosyn on 06/09 -Patient will need one more dose to complete 7 day course of Vancomycin at 1500mg on 06/13 (per recommendation from pharmacy on day of discharge) -Steroids tapered from methylprednisolone BID to daily to prednisone 40 daily -Oxygen requirement during admission has decreased from high flow at 50L to nasal cannula at ~4L. -continue DuoNeb q8hr, flutter valve, incentive spirometry, cough assist, hypertonic nebs, Mucomyst, chest therapy for mucous clearance and bronchodilation Hx of ischemic stroke -continue daily aspirin Elevated Cr -unsure of pt's baseline Cr; 1.62 upon admission -after fluid resuscitation, pt's Cr unchanged- suspect this is around his baseline Diabetes -Hgb A1c 7.8% -hold home medications -goal BS 110-150, insulin glargine to 25 units BID, CF 15, CR 4 Hx of PR -pt has hx of stent placement -continue daily aspirin, atenolol, atorvastatin Hypomagnesemia -Noted on admission, Repleted -continue home magnesium oxide 400 mg daily Pending Studies at Discharge: No Stand-Alone Forms: My [facility] Skilled Items Patient informed of condition?: Yes DNR: Yes Discharge Level of Care: Acute rehab Communicable Disease: Yes (Covid positive) Discharge Prognosis: Stable Lines: None Urinary Catheter: Yes (Condom Cath) Medications and DC Order Prescriptions: New ipratropium-albuterol 0.5 mg-3 mg(2.5 mg base)/3 mL Solution For Nebulization 3 ml NEB Q8R Qty: 0 0RF amlodipine [Norvasc] 5 mg Tablet 5 mg PO DAILY Qty: 0 0RF heparin, porcine (PF) 5,000 unit/0.5 mL Syringe 5,000 unit subcut Q12 Qty: 0 0RF atenolol 50 mg Tablet 50 mg PO DAILY Qty: 0 0RF atorvastatin 40 mg Tablet 40 mg PO DAILY Qty: 0 0RF aspirin 81 mg Tablet,Delayed Release (Dr/Ec) 81 mg PO DAILY Qty: 0 0RF venlafaxine 75 mg Capsule,Extended Release 24hr 75 mg PO DAILY Qty: 0 0RF acetaminophen 325 mg Tablet 650 mg PO Q4H PRNQty: 0 0RF sodium chloride 7 % Solution For Nebulization 4 ml NEB BIDR Qty: 0 0RF bisacodyl 10 mg Suppository 10 mg NM DAILY PRNQty: 0 0RF docusate sodium 100 mg Capsule 100 mg PO BID Qty: 0 0RF magnesium oxide 400 mg (241.3 mg magnesium) Tablet 400 mg PO DAILY Qty: 0 0RF pantoprazole 40 mg Tablet,Delayed Release (Dr/Ec) 40 mg PO DAILY Qty: 0 0RF ondansetron 4 mg Tablet,Disintegrating 4 mg PO Q4H PRNQty: 0 0RF polyethylene glycol 3350 [Miralax] 17 gram Powder In Packet 17 g PO DAILY PRNQty: 0 0RF sennosides-docusate sodium [Senokot-S] 8.6-50 mg Tablet 1 tab PO HS PRNQty: 0 0RF acetylcysteine 200 mg/mL (20 %) Solution 5 ml inhalation Q12R Qty: 0 0RF prednisone 20 mg Tablet 40 mg PO DAILY Qty: 0 0RF Continued loratadine 10 mg Tablet 10 mg PO DAILY Held allopurinol 300 mg tablet 300 mg PO DAILY Hold Instructions: Resume on 07/03/23. Consider restarting after rehab stay metformin 500 mg tablet extended release 24 hr 1,000 mg PO DAILY Hold Instructions: Resume on 07/02/23. Hold while on insulin at hospital admission/rehab Jardiance 25 mg tablet 25 mg PO DAILY Hold Instructions: Resume on 07/03/23. Hold while on insulin during hospital admission/rehab Ozempic 1 mg/dose (2 mg/1.5 mL) Pen Injector See Rx Instructions .ROUTE .COMPLEX Hold Instructions: Resume on 07/02/23. Hold while on admission during hospital admission/rehab Rx Instructions: as directed Discontinued Aspir-81 81 mg PO DAILY atorvastatin 80 mg tablet 40 mg PO DAILY acetaminophen 325 mg Tablet 650 mg PO DAILY PRN (Reason: Pain) venlafaxine 75 mg capsule,extended release 24hr 75 mg PO DAILY sennosides-docusate sodium [Senokot-S] 8.6-50 mg Tablet 1 tab-cap PO HS PRN (Reason: Constipation) amlodipine 5 mg tablet 5 mg PO DAILY mineral oil [Enema] Enema 118 ml NM DAILY PRN (Reason: Constipation) Rx Instructions: discard any unused portion ascorbic acid (vitamin C) 500 mg Tablet 250 mg PO DAILY bisacodyl [Bisa-Lax (bisacodyl)] 10 mg Suppository 10 mg NM DAILY PRN (Reason: Constipation) pantoprazole 40 mg Tablet,Delayed Release (Dr/Ec) 40 mg PO DAILY ferrous sulfate 325 mg (65 mg iron) Tablet 325 mg PO DAILY Humulin R Regular U-100 Insuln 100 unit/mL Solution 2 unit SUBCUT USEASDIRECTD docusate sodium 100 mg Capsule 100 mg PO BID sodium chloride 0.9 % Parenteral Solution See Rx Instructions .ROUTE .COMPLEX PRN (Reason: Other) Rx Instructions: 5ml IV Push glucagon 1 mg Recon Soln See Rx Instructions .ROUTE .COMPLEX Rx Instructions: as directed polyethylene glycol 3350 17 gram/dose Powder 17 g PO DAILY PRN (Reason: Constipation) ondansetron 4 mg Tablet,Disintegrating 4 mg PO Q4H PRN (Reason: N/V) heparin (porcine) 5,000 unit/mL Solution 5,000 unit subcut DIRECTED atenolol 50 mg tablet 50 mg PO DAILY dextrose 50 % in water (D50W) Parenteral Solution See Rx Instructions .ROUTE .COMPLEX Rx Instructions: 25 gm- 50 ml magnesium oxide 400 mg magnesium Tablet 400 mg PO DAILY Glucose Gel gel 15 g PO DAILY PRN (Reason: Other) Milk of Magnesia 30 ml PO DAILY PRN (Reason: Constipation) dextrose 50 % in water (D50W) See Rx Instructions .ROUTE .COMPLEX Rx Instructions: 12.5 gm-25 L Discharge Orders: Discharge Order (Routine); Ordered 06/12/23 Ordered By: Solange Arellano/Other Patient Handouts: High Blood Sugar (Hyperglycemia), Hypoglycemia (Low Blood Sugar), Managing Type 2 Diabetes Admission Data Admit Date/Time: 05/30/23 17:21 Attending Provider: Charles Sanz Admit Provider: Dena Chatterjee [facility] Other Providers: Terrance Guevara ; Rasta Palencia Other Interventions: Discharge Summary Assessment (RN) Last Done: 06/12/23 14:20 Supervising Physician Co-Signing Physician Notes Ipersonally examined the patient and verified all ya points of history and exam, discussed case, and agree with decision making with Dr Stafford Feels okay no new complaints. for rehab today. Breathing unlabored no accessory muscle use good effort, lungs cta b/l sl diminished bibasilar but no r/r/w. Skin shows no rashes no pallor or icterus. Neuro without focal deficits. Pneumonia with persistent and severe hypoxia/high oxygen requirementsputum surprisingly grew resistant staph, in spite of negative MRSA naresI suspect this is why he wasn't improving, now improving nicely since starrted on vancomycin, hypoxia improving. Weaning oxygen, stable for return to rehab. with sensitivities on sputum -> will need vanco - complete Rx end of 06/14 Otherwise as above
--- NOTE | 2023-06-12 18:07 | Billing Data ---
Date of Service June 12, 2023 Coding Level of Care Code 33773 IN/OBS DISCH 30 MIN/LESS
[2023-06-13] MEDS: VANCOMYCIN HCL 1,250 MG in SODIUM CHLORIDE 0.9% 250 ML IV SCH (04:14)
[2023-06-13] MEDS: ACETYLCYSTEINE 20% INHAL SOLN 4ML ***DISPENSED BY RESP. INH SCH (07:43)
[2023-06-13] MEDS: SODIUM CHLOR 7% 4 ML NEB NEB SCH (07:43)
[2023-06-13] MEDS: ALBUT/IPRATROP 3MG/0.5MG NEB 3 ML VIAL NEB SCH (07:43)
[2023-06-13 08:03] LABS: Basophils # (auto) 0.01 K/uL (0.00-0.20); Basophils % (auto) 0.1 %; Hemoglobin 13.3 g/dl (14.0-18.0); Immature Granulocytes # (auto) 0.04 K/uL (0.01-0.20); Immature Granulocytes % (auto) 0.4 %; Lymphocytes # (auto) 1.17 K/uL (1.20-3.40); Mean Corpuscular Hemoglobin 33.2 pg (25.0-34.0); Mean Corpuscular Hgb Conc 34.1 g/dL (32.0-36.0); Mean Corpuscular Volume 97.3 fL (80.0-100.0); Mean Platelet Volume 10.4 fL (9.4-12.4); Monocytes # (auto) 0.76 K/uL (0.11-0.59); Monocytes % (auto) 7.8 %; Neutrophils # (auto) 7.78 K/uL (1.40-6.50); Neutrophils % (auto) 79.7 %; Platelet Count 318 K/uL (130-400); RDW Coefficient of Variation 12.4 % (11.5-14.5); RDW Standard Deviation 44.7 fL (36.4-46.3); Red Blood Count 4.01 M/uL (4.70-6.10); White Blood Count 9.76 K/ul (4.8-10.8)
[2023-06-13 08:20] LABS: Creatinine Clr Calc Pharmacy 49.9 ml/min; Est GFR (African American) 52.9 ml/min; Est GFR (Non-African American) 45.6 ml/min
[2023-06-13] MEDS: predniSONE 20 MG TAB PO SCH (08:49)
[2023-06-13] MEDS: LORATADINE 10 MG TAB PO SCH (08:50)
[2023-06-13] MEDS: ATENOLOL 50 MG TABLET PO SCH (08:50)
[2023-06-13] MEDS: VENLAFAXINE HCL XR 75 MG CAPXR PO SCH (08:50)
[2023-06-13] MEDS: MAGNESIUM OXIDE 400 MG TAB PO SCH (08:50)
[2023-06-13] MEDS: amLODIPine BESYLATE 5 MG TAB PO SCH (08:51)
[2023-06-13] MEDS: ATORVASTATIN 40 MG TAB PO SCH (08:51)
[2023-06-13] MEDS: ASPIRIN 81 MG ECTAB PO SCH (08:51)
[2023-06-13] MEDS: PANTOprazole 40 MG TAB PO SCH (08:51)
[2023-06-13] MEDS: DOCUSATE SODIUM 100 MG CAP PO SCH (08:52)
[2023-06-13] MEDS: HEPARIN SOD 5,000 UNIT/0.5 ML VIAL SQ SCH (08:52)
[2023-06-13] MEDS: INSULIN ASPART PER UNIT CHARGE SC SCH (09:00)
[2023-06-13] MEDS: LANTUS PER UNIT CHARGE SQ SCH (09:01)
== END 2023-06-13 10:25 | DRG 871 ==
LOC: ED 12:06 → SUATTDRO 17:21 → 2S 17:21 → 3N 06-10 14:11